=== PATIENT | male | born 1945 | race Caucasian/White ===

== ENCOUNTER 2024-11-24 08:15 | Inpatient (IN) ==
--- OUTSIDE RECORDS SUMMARY | 2024-11-24 08:19 | External Medical Summary ---
Author Name Unknown Address Unknown Organization [id number]:[facility] [address] [place] [address] Laboratory Report Ordering Provider Test Date Status CHIP VIDAL 10/18/2024 15:29:32 Final Observation Date Value Abnormality Reference (Units ) Status LDH 10/18/2024 15:29:32 163 <=250 (U/L ) Final Performing Location [facility] [address] [place] [address]
--- OUTSIDE RECORDS SUMMARY | 2024-11-24 08:19 | External Medical Summary | Summary of Care ---
Author Name Unknown Organization [facility] Address [address] [place] [address] Phone [phone] Care Team Providers Care Custodian Athletic Equipment Name Role Phone Yany Coreas MD Primary Care Provider Reason for Visit * Reason Onset Date Comments Medication Refill 08/06/2024 Encounter Details Date Type Department Care Team (Late st Contact Info) Description 08/06/2024 Refill Cardiology, [facility] [address] [place] [address] Tereso Neal PATreverC [address] [facility] [place] [address] Allergies No known active allergiesdocumented as of this encounter (statuses as of 08/09/2024) Medications Medication Sig Dispensed Refills Start Date End Date Status Aspirin 81 MG Tablet Take 1 Tablet by mouth in the morning. Active Furosemide 20 MG Oral Tablet (Lasix) TAKE 1 TABLET BY MOUTH ONCE A DAY NEEDED FOR FLUID ACCUMULATION OR WEIGHT GAIN 90 Tablet 3 12/20/2022 Active Fluticasone Propionate 50 MCG/ACT Nasal Suspension (Flonase)Indications :Post-nasal drip Use 2 spray(s) in each nostril once daily 48 g 1 05/17/2023 Active [facility] Iron 325 (65 Fe) MG Oral Tablet Take 1 Tablet by mouth daily with breakfast. 07/24/2023 Active Magnesium 400 MG Oral Tablet Take by mouth. Active Levothyroxine Sodium 25 MCG Oral Tablet (Levoxyl)Indications :Acquired hypothyroidism Take 1 Tablet by mouth in the morning. on an empty stomach.. 90 Tablet 3 01/21/2024 Active Lansoprazole 30 MG Oral Capsule Delayed Release (Prevacid)Indication s:Gastroesophageal reflux disease without esophagitis TAKE 1 CAPSULE BY MOUTH ONCE DAILY IN THE MORNING 30 MIN BEFORE THE FIRST MEAL OF THE DAY 90 Capsule 2 01/21/2024 Active Xtandi 40 MG Oral Tablet 03/22/2024 Active Orgovyx 120 MG Oral Tablet 03/14/2024 Active Metoprolol Succinate ER 50 MG Oral Tablet Extended Release 24 Hour (toPROL XL)Indications:HTN, goal below 130/80,SVT (supraventricular tachycardia) (HCC) Take 1.5 Tablets by mouth in the morning. 135 Tablet 3 05/07/2024 Active amLODIPine Besylate 2.5 MG Oral Tablet (Norvasc) Take 1 Tablet by mouth every evening. 90 Tablet 3 05/07/2024 Active Atorvastatin Calcium 20 MG Oral Tablet (Lipitor)Indications :Mixed dyslipidemia TAKE 1 TABLET BY MOUTH IN THE MORNING 90 Tablet 05/17/2024 Active metroNIDAZOLE 0.75 % External Gel (Metrogel)Indication s:Rosacea APPLY TO FACE FOR ROSACEA TWICE DAILY 45 g 06/13/2024 Active Celecoxib 100 MG Oral Capsule (CeleBREX) Take 1-2 capsules by mouth daily WF and water. Do not combine with other NSAIDs such as diclofenac, ibuprofen or naproxen. 60 Capsule 2 06/22/2024 Active documented as of this encounter (statuses as of 08/09/2024) Active Problems Problem Noted Date Diagnosed Date Obesity, Class II, BMI 35-39.9, isolated (see ac tual BMI) 04/09/2022 PAT (paroxysmal atrial tachycardia) 01/14/2022 1st degree AV block 01/14/2022 Acquired hypothyroidism 07/01/2020 Malignant neoplasm of prostate 06/05/2001 Cancer Staging:Clinical: Unsigned Dyslipidemia documented as of this encounter (statuses as of 08/09/2024) Resolved Problems Problem Noted Date Diagnosed Date Resolved Date Umbilical hernia 09/18/2014 04/09/2022 Sciatica 01/12/2011 06/16/2017 BMI 35-39 ISOLATED (SEE ACTUAL BMI) 03/30/2010 04/09/2022 Overview: Per Obesity Protocol, #19 Esophageal stricture 08/01/2009 022 ADVANCE DIRECTIVE INFORMATION 01/02/2007 10/23/2018 Overview: No, Advance Directive brochure offered , patient declined. Acute cholecystitis 01/20/2004 05/29/20 09 BACKACHE NOS 06/05/2001 06/16/2017 CLOSE SKULL FRACTURE NEC - age 12 06/16/2017 DIVERTICULOSIS OF COLON - 03/1710/23/2018 INCONTINENCE WITHOUT SENSORY AWARENESS 04/09/2022 documented as of this encounter (statuses as of 08/09/2024) Immunizations Name Administration Dates Next Due COVID-19 mRNA, LNP-s, No Pre serve, 2-Dose Series (Upower) 01/13/2021,12/16/2020 Pneumococcal Conjugate Vacc, 13 Valent (Prevnar) 05/22/2015 Pneumococcal Polysaccharide PPV23 (Pneumovax) 07/07/2012,04/07/2012 Season Influenza, Quad, PF, Adjuvanted, 65+ Yrs, IM (FLUAD) 07/01/2020 Seasonal Influenza Vac., MDV , IM, 0.5 mL (Fluzone) 07/20/2014,07/07/2013,07/14/2012,06/18,08/14/2010 07/20/2015 Seasonal Influenza, PF, 6 M & above, IM , (FluLaval or Fluzone) 08/10/2018,07/30/2017 Seasonal Influenza, Quadriva lent Hd (Fluzone Hd) 07/09/2023,08/17/2022,07/08/2021 Seasonal Influenza, Quadriva lent, No Preserve, IM 07/31/2016,07/22/2015 Seasonal Influenza, Trivalen t, Adjuvanted, 65+ YRS, PF, (Fluad) 08/03/2019 TDAP (age 10 and older)(Boostrix) 04/25/2023, Varicella Zoster Vaccine (Adult) 06/15/2012 Zoster Vaccine Recombinant (Shingrix) 10/28/2018 ,06/20/2018 documented as of this encounter Social History Tobacco Use Types Packs/Day Years Used Date Smoking Tobacco: Never Smokeless Tobacco: Never Alcohol Use Standard Drinks/Week Comments Yes 0 (1 standard drink = 0.6 oz pur e alcohol) 2-3 scotch per weekend PHQ-2 Answer Date Recorded PHQ Adult Total Score 0 06/08/2023 Hunger Vital Sign Answer Date Recorded Within the past 12 months, y ou worried that your food would run out before you got the money to buy more. Patient declined Within the past 12 months, t he food you bought just didn't last and you didn't have money to get more. Patient declined Childcare Answer Date Recorded Do you feel overwhelmed with taking care of a child, family member or friend? No 06/07/2023 Does your family need help f inding childcare? (Household - for ages 0-17 years) Not on file 06/07/2023 Clothing Answer Date Recorded Have you been unable to get clothing when it was really needed? No 06/07/2023 Is your family able to get c lothes or diapers when needed? (Household - for ages 0-17 years) Not on file 06/07/2023 Personal Safety Answer Date Recorded Do you feel unsafe or have concerns for your saf ety? No 06/07/2023 Do you have concerns for you r family's safety? (Household - for ages 0-17 years) Not on file 06/07/2023 Utilities Answer Date Recorded Do you have trouble paying y our heating, water, or electric bill? (Adult - for ages 18 years and over) Not on file 06/08/2024 Is your family able to pay t he heat, water, or electric bill? (Household - for ages 0-17 years) Not on file 06/08/2024 Does your family have access to good internet? (Household - for ages 0-17 years) Not on file 06/08/2024 Employment Status Answer Date Recorded Are you unemployed or without regular income? No 06/07/2023 Does the household have a re gular source of income? (Household - for ages 0-17 years) Not on file 06/07/2023 Social Connections Answer Date Recorded How often do you feel lonely or isolated from those around you? (Adult - for ages 18 years and over) Not on file 06/08/2024 Financial Resource Strain Answer Date R ecorded Do you have any trouble payi ng for your medications, or do you think you might in the future? No 06/07/2023 Does your family have troubl e paying for medicine? (Household - for ages 0-17 years) Not on file 06/07/2023 Transportation Needs Answer Date Record ed READ ONLY Do you have troubl e getting a ride to medical visits or work? Never True 06/07/2023 Does your family have a hard time getting a ride to doctors visits? (Household - for ages 0-17 years) Not on file 06/07/2023 Has lack of transportation k ept you from medical appointments, meetings, work, or from getting things needed for daily living? Check all that apply. (Adult - for ages 18 years and over) Not on file 06/07/2023 Do you (or your family) have trouble finding or paying for a ride (transportation)? (Household - for ages 0-17 years) Not on file 06/07/2023 Housing Stability Answer Date Recorded Do you currently live in a s helter or have no steady place to sleep at night? No 06/07/2023 READ ONLY Do you think you a re at risk of becoming homeless? No 06/07/2023 Does your family worry about paying for your home or becoming homeless? (Household - for ages 0-17 years) Not on file 0 06/07/2023 Are you homeless or worried that you might be in the future? (Adult - for ages 18 years and over) Not on file Are you (or your family) gage eless or worried that you might be in the future? (Household - for ages 0-17 years) Not on file Food Insecurity Answer Date Recorded Do you need food for this week? No 06/07/2023 Are you able to get enough f ood for your family? (Household - for ages 0-17 years) Not on file 06/07/2023 Does your family need food t his week? (Household - for ages 0-17 years) Not on file 06/07/2023 Do you always have enough fo od for your family? (Household - for ages 0-17 years) Not on file 06/07/2023 Sex and Gender Information Value Date Recorded Sex Assigned at Male 12/18/2019 8:38 AM EST Gender Identity Male 12/18/2019 8:38 AM EST Sexual Orientation Straight 12/18/2019 8: 38 AM EST Job Start Date Occupation Industry Not on file Not on file Not on file documented as of this encounter Miscellaneous Notes * Telephone Encounter - Kesha Burgos [facility] - 08/09/2024 1:36 PM EDTRefused Prescriptions: Disp Refills amLODIPine Besylate 2.5 MG Oral Tablet (No*90 Tab*3 Sig: Take 1Tablet by mouth every evening.Refused By: KESHA BURGOS MReason for Refusal: Too soonReason forRefusal Comment: 1 year supply sent on 05/07/24 Electronically signed by Kesha Burgos [facility] at 08/09/2024 1:36 PM EDT * Telephone Encounter - Astrid Ramirez - 08/06/2024 11:03 PM EDTPending Prescriptions: Disp Refills amLODIPine Besylate 2.5 MG Oral Tablet (No*90 Tab*3 Sig: Take 1 Tablet by mouth every evening. * Telephone Encounter - Astrid Ramirez - 08/06/2024 11:01 PM EDT Did you pend patient's preferred pharmacy and medication before forwarding?yes Pharmacy: [facility] [address] [place] Pending Prescriptions: Disp Refills amLODIPine Besylate 2.5 MG Oral Tablet (N*90 Tab*3 Sig: Take 1 Tablet by mouth every evening. Last Visit: 05/07/2024 (in office), Visit date not found (telemedicine) Next Visit: 08/17/2024 If no future appointments scheduled, and last appointment is greater than a year ago, please schedule patient for a follow-up appointment Last date the medication was ordered: 05/07/2024 Is this request for a controlled substance?No Urine Drug Screen:No results found for this or any previous visit. Patient Phone Numbers Labs: Lab Results Component Value Date/Time CREAT 1.2 06/20/2024 04:08 PM CREAT 1.03 07/14/2023 12:00 AM CREAT 1.2 07/16/2020 04:20 PM POTASSIUM 4.9 06/20/2024 04:08 PM POTASSIUM 4.5 07/14/2023 12:00 AM POTASSIUM 4.6 07/16/2020 04:20 PM TSH 2.94 05/07/2024 11:24 AM TSH 2.54 08/30/2019 10:08 AM LDL 72 06/20/2024 04:08 PM LDL 75 07/10/2021 04:26 PM LDL UNINTERPRETABLE RESULT 06/21/2019 08:40 AM LDL 79 06/21/2019 08:40 AM ALT 13 06/20/2024 04:08 PM ALT 28 07/16/2020 04:20 PM documented in this encounter Plan of Treatment Upcoming Encounters Date Type Department Care Team (Late st Contact Info) Description 08/17/2024 10:30 AM EDT Office Visit Cardiology, [facility] [address] [place] [id number] Tereso Neal PA-C [address] [place] [address] 08/21/2024 2:00 PM EST Scheduled Telephone Interventional Pain Center, [facility] [address] [place] [address] [place], Nurse Phone Call Interventional Pain [facility] [address] [place] [address] 12/18/2024 12:00 PM EST Laboratory Laboratory [facility] [place] [address] [place] [phone] [facility] [address] [place] [address] 12/25/2024 3:30 PM EDT Office Visit Hematology/Oncology [facility] [place] [address] [place] [phone] Jayant Garcia MD [address] [place] [id number] Scheduled Procedures Name Priority Associated Diagnoses Date/Ti me COLONOSCOPY FLEXIBLE PROXIMAL DIAGNOSTIC Recall Colon cancer screening Health Maintenance Due Date Last Done Comments Adult Wellness Visit 06/08/2024 06/08/2023 Depression Screening 06/08/2024 06/08/2023 Influenza Vaccine (FLU shot) (#1) 2024 07/09/2023, 08/17/2022, 07/08/2021, Additional history exists TSH 05/07/2025 05/07/2024, 10/2022, 05/02/2023, Additional history exists DTap/Tdap Vaccines (3 - Td or Tdap) 04/25/2033 04/25/2023, 04/07/2012, 06/01/2001 Pneumococcal Vaccine: 65+ Years Completed 05/22/2015, 07/07/2012, 04/07/2012 Zoster Vaccines Completed 10/28/2018, 0 01/2018, 06/15/2012 COVID-19 Vaccine Discontinued 10/01/2023, , 12/16/2020 HPV (Gardasil) Vaccine Aged Out No lo nger eligible based on patient's age to complete this topic Hepatitis B Vaccine Aged Out No longe r eligible based on patient's age to complete this topic MENINGOCOCCAL (MENACTRA/MENVEO) Aged Out No longer eligible based on patient's age to complete this topic documented as of this encounter Medical Devices Implanted Type Area Manager Customer Service Device Identifier Shelf Expiration Date Model / Serial / Lot Lens Intraoc 21.5 - [id number] - [id number] Implanted:Qty: 1 on 10/31/2018 by Sal Ortez MD at OR [facility] Left: Eye [employer] 05/16/2023 [id number] / [id number] / [id number] Lens Intraoc 20.5 - [id number] - [id number] Implanted:Qty: 1 on 11/09/2018 by Sal Ortez MD at OR [facility] Eye [employer] 06/16/2023 [id number] / [id number] / [id number] documented as of this encounter Care Teams Custodian Athletic Equipment Relationship Specialty Start Date End Date Yany Coreas MD [address] [place] [address] PCP - General Internal Medicine 07/09/23 documented as of this encounter
--- OUTSIDE RECORDS SUMMARY | 2024-11-24 08:19 | External Medical Summary | Summary of Care ---
Author Name Unknown Organization [facility] Address [address] [place] [address] Phone [phone] Care Team Providers Care Acid Remover Name Role Phone Yany Coreas MD Primary Care Provider Reason for Visit * Reason Comments Follow Up 3m rtc Encounter Details Date Type Department Care Team (Late st Contact Info) Description 08/17/2024 10:30 AM EDT Office Visit Cardiology, [facility] [address] [place] [id number] Tereso Neal PATreverC [address] [facility] [address] SVT (supraventricular tachycardia) ([facility])*; PAT (paroxysmal atrial tachycardia) ([facility]); HTN, goal below 130/80; Dyslipidemia, goal LDL below 100 Allergies No known active allergiesdocumented as of this encounter (statuses as of 08/17/2024) Medications Medication Sig Dispensed Refills Start Date [...] every evening. 90 Tablet 3 05/07/2024 Active metroNIDAZOLE 0.75 % External Gel (Metrogel)Indication s:Rosacea APPLY TO FACE FOR ROSACEA TWICE DAILY 45 g 06/13/2024 Active Celecoxib 100 MG Oral Capsule (CeleBREX) Take 1-2 capsules by mouth daily WF and water. Do not combine with other NSAIDs such as diclofenac, ibuprofen or naproxen. 60 Capsule 2 06/22/2024 Active Atorvastatin Calcium 20 MG Oral Tablet (Lipitor)Indications :Mixed dyslipidemia TAKE 1 TABLET BY MOUTH IN THE MORNING 90 Tablet 08/14/2024 Active documented as of this encounter (statuses as of 08/17/2024) Active Problems Problem Noted Date Diagnosed Date Obesity, Class II, BMI 35-39.9, isolated (see ac tual BMI) 04/09/2022 PAT (paroxysmal atrial tachycardia) 01/14/2022 1st degree AV block 01/14/2022 Acquired hypothyroidism 07/01/2020 Malignant neoplasm of prostate 06/05/2001 Cancer Staging:Clinical: Unsigned Dyslipidemia documented as of this encounter (statuses as of 08/17/2024) Resolved Problems Problem Noted Date Diagnosed Date [...] as of this encounter (statuses as of 08/17/2024) Immunizations Name Administration Dates Next Due COVID-19 mRNA, LNP-s, No Pre serve, 2-Dose Series (Pfizer) 01/13/2021,12/16/2020 Pneumococcal Conjugate Vacc, 13 Valent (Prevnar) [...] on file documented as of this encounter Last Filed Vital Signs Vital Sign Reading Time Taken Comments Blood Pressure 118/58 08/17/2024 10:19 AM EDT Pulse 64 08/17/2024 10:19 AM EDT Temperature - - Respiratory Rate 16 08/17/2024 10:1 9 AM EDT Oxygen Saturation - - Inhaled Oxygen Concentration - - Weight 108.5 kg (239 lb 1.6 oz) 024 10:19 AM EDT Height - - Body Mass Index 36.36 07/09/2023 9:09 AM EDT documented in this encounter Progress Notes * Tereso Neal PA-C - 08/17/2024 10:30 AM EDT History of Present Illness: Ankit Morgan is a very pleasant 79 year old male here today for cardiology evaluation. Went to [place] for a regular checkup and was found to have a heart rate of 135 bpm. Spent the night in the hospital. Asymptomatic at that time. Diltiazem discontinued in March 2024 when prescribed Xtandi. Evaluated by the undersigned for the 1st time in April 2024. Amlodipine decreased due to fluid retention. Furosemide recommended at 20 mg two days per week, as needed for lower extremity peripheraledema. Metoprolol succinate increased to 75 mg/day. Resting echocardiography obtained and summarized below. Seven day Zio monitor obtained on metoprolol succinate 75 mg/day -> average heart rate was 61 bpm. Multiple episodes of SVT/PAT observed, without associated symptoms. Patient returns today feeling relatively well except for chronic back problem after remote (1980) fall. No palpitations. No reported chest pain, shortness of breath, significant fluid retention, orthopnea, PND, dizziness, or syncope. Problem List: PAT and SVT, adenosine responsive Hyperlipidemia with low HDL Hypothyroidism MGUS, monoclonal IgG kappa gammopathy Prostate cancer, on Xtandi and Orgovyx Patient Active Problem List Diagnosis Malignant neoplasm of prostate (HCC) Dyslipidemia Acquired hypothyroidism PAT (paroxysmal atrial tachycardia) (HCC) 1st degree AV block Obesity, Class II, BMI 35-39.9, isolated (see actual BMI) Past Medical History: Diagnosis Date DIVERTICULOSIS OF COLON - 03/17 Esophageal stricture 08/01/09 Malignant neoplasm of prostate (HCC) 06/05/2001 [facility] MIXED HYPERLIPIDEMIA - Low HDL Obesity, Class II, BMI 35-39.9, isolated (see actual BMI) 04/09/2022 Other specified gastritis without mention of hemorrhage 08/01/09 Schatzki ring, focal minimal and nonspecific chronic gastric inflammation Past Surgical History: Procedure Laterality Date COLONOSCOPY 09/2005 repeat in 10 yrs. COLONOSCOPY, DIAGNOSTIC (RECTUM) 09/22/2015 diverticulosis, repeat 10 yrs/COLONOSCOPY FLEXIBLE PROXIMAL DIAGNOSTIC performed by Aron Alonso MD at ENDOSCOPY [facility] EGD, FLEXIBLE, DIAGNOSTIC 06/05/2013 UPPER GI ENDOSCOPY DIAGNOSTIC performed by Claire Emmanuel DO at [facility]OSCOPY [facility], mild inflammation, without infection EGD, FLEXIBLE, DIAGNOSTIC 07/23/2020 acid reflux, hiatal hernia / ESOPHAGOGASTRODUODENOSCOPY (EGD), FLEXIBLE, TRANSORAL, DIAGNOSTIC performed by Aron Alonso MD at ENDOSCOPY [facility] EGD, FLEXIBLE, TRANSENDOSCOPIC DILATION <30MM 07/18/2009 mild gastric inflammation, residual gastric content, f/u EGD in 2 weeks for dilation EGD, FLEXIBLE, W/BIOPSY 08/01/2009 Schatzki ring, focal minimal and nonspecific chronic gastric inflammation INJECT DX/THER SUBSTANCE INTERLAMINAR LUMBAR/SACRAL W IMAGE GUIDE 01/17/2023 INJECTION SPINE LUMBAR OR SACRAL performed by Bebo Mitchell DO at OR [facility] INJECT DX/THER SUBSTANCE INTERLAMINAR LUMBAR/SACRAL W IMAGE GUIDE 11/28/2023 INJECTION SPINE LUMBAR OR SACRAL performed by Bebo Mitchell DO at OR [facility] INJECT DX/THER SUBSTANCE INTERLAMINAR LUMBAR/SACRAL W IMAGE GUIDE 07/16/2024 INJECTION SPINE LUMBAR OR SACRAL performed by Bebo Mitchell DO at OR [facility] LAPAROSCOPY; CHOLECYSTECTOMY 2003 Cholecystectomy, Laproscopic REMOVAL OF PROSTATE, FIRST STAGE 11/1998 [facility] REMOVE CATARACT, INSERT LENS PROSTH Left 10/31/2018 left EXTRACAPSULAR CATARACT REMOVAL WITH INTRAOCULAR LENS performed by Sal Ortez MD at OR [facility] REMOVE CATARACT, INSERT LENS PROSTH 11/09/2018 EXTRACAPSULAR CATARACT REMOVAL WITH INTRAOCULAR LENS performed by Sal Ortez MD at OR [facility] REMOVE TONSILS & ADENOIDS, UNDER 12 SIGMOIDOSCOPY/BIOPSY 03/28/2001 diverticulosis - Dr Elizondo TREAT SKULL FX W/O SURGERY age 12 Family History Problem Relation Name Age of Onset Cancer Mother Cervix Heart Disorder Father [place] Family Status Relation Status Mo at age 53 Cancer of Cervix Fa at age 64 [place] Sis Alive Sis Alive Sis Alive Sis Alive Son Alive Son Alive Social History Socioeconomic History Marital status: Spouse name: Sushma Number of children: 2 Years of education: Not on file Highest education level: Not on file Occupational History 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 Review of patient's allergies indicates: No Known Allergies Current Outpatient Medications Medication Sig Dispense Refill Aspirin 81 MG Tablet Take 1 Tablet by mouth in the morning. Furosemide 20 MG Oral Tablet (Lasix) TAKE 1 TABLET BY MOUTH ONCE A DAY NEEDED FOR FLUID ACCUMULATION OR WEIGHT GAIN 90 Tablet 3 Fluticasone Propionate 50 MCG/ACT Nasal Suspension (Flonase) Use 2 spray(s) in each nostril once daily 48 g 1 [facility] Iron 325 (65 Fe) MG Oral Tablet Take 1 Tablet by mouth daily with breakfast. Magnesium 400 MG Oral Tablet Take by mouth. Levothyroxine Sodium 25 MCG Oral Tablet (Levoxyl) Take 1 Tablet by mouth in the morning. on an empty stomach.. 90 Tablet 3 Lansoprazole 30 MG Oral Capsule Delayed Release (Prevacid) TAKE 1 CAPSULE BY MOUTH ONCE DAILY IN THE MORNING 30 MIN BEFORE THE FIRST MEAL OF THE DAY 90 Capsule 2 Xtandi 40 MG Oral Tablet Orgovyx 120 MG Oral Tablet Metoprolol Succinate ER 50 MG Oral Tablet Extended Release 24 Hour (toPROL XL) Take 1.5 Tablets by mouth in the morning. 135 Tablet 3 amLODIPine Besylate 2.5 MG Oral Tablet (Norvasc) Take 1 Tablet by mouth every evening. 90 Tablet 3 metroNIDAZOLE 0.75 % External Gel (Metrogel) APPLY TO FACE FOR ROSACEA TWICE DAILY 45 g 0 Celecoxib 100 MG Oral Capsule (CeleBREX) Take 1-2 capsules by mouth daily WF and water. Do not combine with other NSAIDs such as diclofenac, ibuprofen or naproxen. 60 Capsule 2 Atorvastatin Calcium 20 MG Oral Tablet (Lipitor) TAKE 1 TABLET BY MOUTH IN THE MORNING 90 Tablet 0 No current facility-administered medications for this visit. OBJECTIVE/PHYSICAL EXAMINATION: BP 118/58 | Pulse 64 | Resp 16 | Wt 108.5 kg (239 lb 1.6 oz) | BMI 36.36 kg/m | BSA 2.28 m General: Pleasant. Comfortable. Cooperative.NAD Eyes: PER. Conjunctiva pink, sclera clear. HENT: Normocephalic. Atraumatic. Neck: No carotid bruits. No overt JVD. Heart: Regular 64 bpm. Soft systolic murmur heard only at the right mid sternal border. Lungs: Clear to auscultation. Abdomen: +BS. Extremities: No significant edema. Limited neurological examination: No focal deficit. Data: October 2021 Zio Monitor: Patient had a min HR of 42 bpm, max HR of 182 bpm, and avg HR of 59 bpm. Predominant underlying rhythm was Sinus Rhythm. First Degree AV Block was present. 1 run of Ventricular Tachycardia occurred lasting 12 beats with a max rate of 182 bpm (avg 131 bpm). 25 Supraventricular Tachycardia runs occurred, the run with the fastest interval lasting 4 hours 46 mins with a max r ate of 179 bpm (avg 126 bpm); the run with the fastest interval was also the longest. Supraventricular Tachycardia was present at activation of device. Some episodes of Supraventricular Tachycardia may be possible Atrial Tachycardia with variable block. Isolated SVEs were rare (<1.0%), SVE Couplets were rare (<1.0%), and SVE Triplets were rare (<1.0%). Isolated VEs were rare (<1.0%), VE Couplets were rare (<1.0%), and no VE Triplets were present. Multiple short salvos of PSVT With sustained SVT lasting upwards of 4 hours and 46 minutes. August 01, 2024 TTE Interpretation Summary (as per Dr. Price): There was sinus bradycardia during the examination. The LV wall thickness is mildly increased (concentric). The left ventricular wall motion is normal. The qualitative LV ejection fraction is 55-59% (normal). The left ventricular lacy stolic function is mildly abnormal (grade I). Moderate aortic valve sclerosis is present. Aortic stenosis is absent. July 2024 Zio Monitor: Patient had a min HR of 43 bpm, max HR of 169 bpm, and avg HR of 61 bpm. Predominant underlying rhythm was Sinus Rhythm. 136 Supraventricular Tachycardia runs occurred, the run with the fastest interval lasting 2 mins 33 secs with a max rate of 169 bpm, the longest lasting1 hour 41 mins with an avg rate of 106 bpm. Isolated SVEs were occasional (1.3%, 7881), SVE Couplets were rare (<1.0%, 86), and SVE Triplets were rare (<1.0%, 5). Isolated VEs were rare (<1.0%), VE Couplets were rare (<1.0%), and no VE Triplets were present. No patient marker or diary entries were submitted. Impression: Sinus rhythm, average rate 60 beats per minute with occasional atr ial ectopic beats and rare ventricular ectopic beats and couplets. Episodes of supraventricular tachycardia were present, longest 1 hour and 41 minutes at 106 beats per minute Lipid Panel Results: Results for orders placed or performed in visit on 06/20/24 LIPID PANEL WITH DIRECT LDL IF TG IS HIGH Result Value Ref Range Triglycerides 190 (H) <=174 mg/dL Cholesterol 127 <200 mg/dL HDL Cholesterol 24 (L) >39 mg/dL Non-HDL Cholesterol 103 <=159 mg/dL Lab Results Component Value Date/Time LDL CHOLESTEROL (DIRECT MEASURE) - INÉS 72 06/20/2024 04:08 PM The 10-year ASCVD risk score (Antoinette DESAI, et al., 2019) is: 32.2% Values used to calculate the score: Age: 79 years Sex: Male Is Non- : No Diabetic: No Tobacco smoker: No Systolic Blood Pressure: 118 mmHg Is BP treated: Yes HDL Cholesterol: 24 mg/dL Total Cholesterol: 127 mg/dL ASSESSMENT AND RECOMMENDATIONS/PLAN: Multiple episodes of SVT/PAT, asymptomatic. Continue metoprolol succinate 75 mg/day. General measures advised. If/when symptomatic with the SVT/PAT would reconsider use of antiarrhythmic therapy versus referral back to Electrophysiology Hypertension, well controlled. Hyperlipidemia with low HDL cholesterol. Continue atorvastatin. Routine cardiac follow-up with Dr. Laughlin, or as needed with the undersigned in the interim. Tereso Neal PA-C Department of Cardiology I spent a total of 20-29 minutes (exact time 28 mins) on the date of service in preparation, delivery, and documentation of the care provided to Ankit Morgan excluding any time spent in the performance of separately billed services. This visit involved medical care services related to at least one serious condition or complex condition requiring ongoing care. This chart was completed in part utilizing [employer] Speech Voice Recognition Software. Grammatical errors, random word insertions, prounoun errors, and incomplete sentences are an occasional consequence of this system due to software limitations, ambient noise, and hardware issues. Any formal questions or concerns about the content, text, or information contained within the body of this dictation should be directly addressed to the provider for clarification. documented in this encounter Nursing Notes * Yael Alejandro CMA - 08/17/2024 10:17 AM EDT Examination Room: 1 Name: Ankit Morgan Date of : (1945). Reason for Visit: rtc Interim Hospitalization(s): denies Problems/Concerns: Discuss Echo/Zio Chest Pain/SOB: denies [facility] Discussed: Yes [facility] is a way you can talk to your provider online through e-mail. Would you like to sign up? I can activate it for you? ALREADY ACTIVE Patient was instructed to not get up on the exam table until directed and assisted by their provider; patient is to remain seated in the chair/ wheelchair/ exam table for fall prevention and safety reasons. Patient is aware to have assistance to step down off exam table with personnel. Patient voiced full comprehension of instructions. documented in this encounter Plan of Treatment Upcoming Encounters Date Type Department Care Team (Late st Contact Info) Description 08/21/2024 2:00 PM EST Scheduled Telephone [facility], [address] [place] [address] Srini Nurse Phone Call [facility] [address] [place] [address] 12/18/2024 12:00 PM EST Laboratory Laboratory [facility] [address] [place] [phone] [facility] [address] [place] [address] 12/25/2024 3:30 PM EDT Office Visit Hematology/Oncology [facility] [address] [place] [phone] Jayant Garcia MD [address] [place] [address] 02/15/2025 3:30 PM EDT Office Visit Cardiology, [facility] [address] [place] [address] Tereso Neal PA-C [address] [place] [address] Scheduled Procedures Name Priority Associated Diagnoses Date/Ti [...] 05/22/2015, 07/07/2012, 04/07/2012 Zoster Vaccines Completed 10/28/2018, 01/2018, 06/15/2012 COVID-19 Vaccine Discontinued 10/01/2023, , [...] this encounter Medical Devices Implanted Type Area Mimeograph Operator Device Identifier Shelf Expiration Date Model / Serial / Lot Lens Intraoc 21.5 - [id number] - [id number] Implanted:Qty: 1 on 10/31/2018 by Sal Ortez MD at OR [facility] Left: Eye [employer] 05/16/2023 [id number] / [id number] / [id number] Lens Intraoc 20.5 - [id number] - [id number] Implanted:Qty: 1 on 11/09/2018 by Sal Ortez MD at OR [facility] Eye [employer] 06/16/2023 [id number] / [id number] / [id number] documented as of this encounter Visit Diagnoses Diagnosis SVT (supraventricular tachycardia) (HCC)- Primary Other specified cardiac dysrhythmias PAT (paroxysmal atrial tachycardia) (HCC) Paroxysmal supraventricular tachycardia HTN, goal below 130/80 Unspecified essential hypertension Dyslipidemia, goal LDL below 100 Other and unspecified hyperlipidemia documented in this encounter Care Teams Acid Remover Relationship Specialty Start Date End Date Yany Coreas MD [address] [facility] [place] [address] PCP - General Internal Medicine 07/09/23 documented as of this encounter"
--- OUTSIDE RECORDS SUMMARY | 2024-11-24 08:19 | External Medical Summary ---
Author Name Unknown Address Unknown Organization K09:[facility] [place] [id number] Laboratory Report Ordering Provider Test Date Status HCIP VIDAL 10/18/2024 15:29:32 Final Observation Date Value Abnormality Reference (Units ) Status WBC, Total 10/18/2024 15:29:32 5.32 4.00-10.8 0 (K/uL) Final RBC 10/18/2024 15:29:32 3.69 4.50-5.25 (M/uL) Final Hemoglobin 10/18/2024 15:29:32 12.2 Below low normal 14 .0-16.8 (g/dL) Final HCT 10/18/2024 15:29:32 36.9 Below low normal 40. 0-48.4 (%) Final MCV 10/18/2024 15:29:32 100.0 82.0-99.5 (fL) Final MCH 10/18/2024 15:29:32 33.1 27.0-34.0 (pg) Final MCHC 10/18/2024 15:29:32 33.1 32.0-36.0 (g/dL) Final RDW 10/18/2024 15:29:32 12.8 11.5-15.5 (%) Final Platelets 10/18/2024 15:29:32 240 140-400 (K /uL) Final MPV 10/18/2024 15:29:32 10.4 6.6-11.1 ( fL) Final Performing Location [facility] [place] [id number]
--- OUTSIDE RECORDS SUMMARY | 2024-11-24 08:19 | External Medical Summary | Summary of Care ---
Author Name Unknown Organization [facility] Address [address] [place] [address] Phone [phone] Care Team Providers Care Supervisor Housecleaner Name Role Phone Yany Coreas MD Primary Care Provider Reason for Visit * Reason Comments Outpatient Testing Encounter Details Date Type Department Care Team (Late st Contact Info) Description 10/18/2024 3:30 PM EST Laboratory [facility] [place] [address] [place] [phone] [place], [address] [place] [address] Malignant neoplasm of prostate (HCC) Allergies No known active allergiesdocumented as of this encounter (statuses as of 10/18/2024) Medications Aspirin 81 MG Tablet Take 1 Tablet by mouth in the morning. Active Furosemide 20 MG Oral Tablet (Lasix) TAKE 1 TABLET BY MOUTH ONCE A DAY NEEDED FOR FLUID ACCUMULATION OR WEIGHT GAIN 90 Tablet 3 12/21/19 23 Active Fluticasone Propionate 50 MCG/ACT Nasal Suspension (Flonase)Indicatio ns:Post-nasal drip Use 2 spray(s) in each nostril once daily 48 g 1 05/17/20 23 Active [facility] Iron 325 (65 Fe) MG Oral Tablet Take 1 Tablet by mouth daily with breakfast. 07/24/20 23 Active Magnesium 400 MG Oral Tablet Take by mouth. Act jose Xtandi 40 MG Oral Tablet 03/22/20 24 Active Orgovyx 120 MG Oral Tablet 03/14/20 24 Active Metoprolol Succinate ER 50 MG Oral Tablet Extended Release 24 Hour (toPROL XL)Indications:HTN , goal below 130/80,SVT (supraventricular tachycardia) (HCC) Take 1.5 Tablets by mouth in the morning. 135 Tablet 3 05/07/20 24 Active amLODIPine Besylate 2.5 MG Oral Tablet (Norvasc) Take 1 Tablet by mouth every evening. 90 Tablet 3 05/07/20 24 Active metroNIDAZOLE 0.75 % External Gel (Metrogel)Indicati ons:Rosacea APPLY TO FACE FOR ROSACEA TWICE DAILY 45 g 06/13/20 24 Active Celecoxib 100 MG Oral Capsule (CeleBREX) Take 1-2 capsules by mouth daily WF and water. Do not combine with other NSAIDs such as diclofenac, ibuprofen or naproxen. 60 Capsule 2 06/22/20 24 Active Levothyroxine Sodium 25 MCG Oral Tablet (Levoxyl)Indicatio ns:Acquired hypothyroidism Take 1 Tablet by mouth in the morning. on an empty stomach.. 90 Tablet 3 10/04/20 24 Active Lansoprazole 30 MG Oral Capsule Delayed Release (Prevacid)Indicati ons:Gastroesophage al reflux disease without esophagitis TAKE 1 CAPSULE BY MOUTH ONCE DAILY IN THE MORNING 30 MIN BEFORE THE FIRST MEAL OF THE DAY 90 Capsule 2 10/04/20 24 Active Atorvastatin Calcium 20 MG Oral Tablet (Lipitor)Indicatio ns:Mixed dyslipidemia Take 1 Tablet by mouth in the morning. 90 Tablet 3 10/04/20 24 Active documented as of this encounter (statuses as of 10/18/2024) Active Problems Problem Noted Date Diagnosed Date Obesity, Class II, BMI 35-39.9, isolated (see ac tual BMI) 04/09/2022 PAT (paroxysmal atrial tachycardia) 01/14/2022 1st degree AV block 01/14/2022 Acquired hypothyroidism 07/01/2020 Malignant neoplasm of prostate 06/05/2001 Cancer Staging:Clinical: Unsigned Dyslipidemia documented as of this encounter (statuses as of 10/18/2024) Resolved Problems Problem Noted Date Diagnosed Date Resolved Date Umbilical hernia 09/18/2014 04/09/2022 Sciatica 01/12/2011 06/16/2017 BMI 35-39 ISOLATED (SEE ACTUAL BMI) 03/30/2010 04/09/2022 Overview (03/30/2010): Per Obesity Protocol, #19 Esophageal stricture 08/01/2009 022 ADVANCE DIRECTIVE INFORMATION 01/02/2007 10/23/2018 Overview (01/02/2007): No, Advance Directive brochure offered , patient declined. Acute cholecystitis 01/20/2004 05/29/20 09 BACKACHE NOS 06/05/2001 06/16/2017 CLOSE SKULL FRACTURE NEC - age 12 06/16/2017 DIVERTICULOSIS OF COLON - 03/1710/23/2018 INCONTINENCE WITHOUT SENSORY AWARENESS 04/09/2022 documented as of this encounter (statuses as of 10/18/2024) Immunizations Name Administration Dates Next Due COVID-19 mRNA, LNP-s, No Pre serve, 2-Dose Series (Pfizer) 01/13/2021,12/16/2020 COVID-19, MRNA-LNP, PF, 30 M CG/0.3 mL, 12 YRS AND ABOVE, IM (PFIZER-Comirnaty) 08/10/2024,10/01/2023 Pneumococcal Conjugate Vacc, 13 Valent (Prevnar) 05/22/2015 Pneumococcal Polysaccharide PPV23 (Pneumovax) 07/07/2012,04/07/2012 Season Influenza, Quad, PF, Adjuvanted, 65+ Yrs, IM (FLUAD) 08/10/2024,07/01/2020 Seasonal Influenza Vac., MDV , IM, 0.5 [...] Date Recorded PHQ Adult Total Score 0 10/04/2024 Hunger Vital Sign Answer Date Recorded Within the past 12 months, y ou worried that your food would run out before you got the money to buy more. Never true 10/03/20 24 Within the past 12 months, t he food you bought just didn't last and you didn't have money to get more. Never true 10/03/2024 Childcare Answer Date Recorded Do you feel overwhelmed with taking care of a child, family member or friend? No 10/03/2024 Does your family need help f inding childcare? (Household - for ages 0-17 years) Not on file 10/03/2024 Clothing Answer Date Recorded Have you been unable to get clothing when it was really needed? No 10/03/2024 Is your family able to get c lothes or diapers when needed? (Household - for ages 0-17 years) Not on file 10/03/2024 Personal Safety Answer Date Recorded Do you feel unsafe or have concerns for your saf ety? No 10/03/2024 Do you have concerns for you r family's safety? (Household - for ages 0-17 years) Not on file 10/03/2024 Utilities Answer Date Recorded Do you have trouble paying y our heating, water, or electric bill? No 10/03/2024 Is your family able to pay t he heat, water, or electric bill? (Household - for ages 0-17 years) Not on file 10/03/2024 Does your family have access to good internet? (Household - for ages 0-17 years) Not on file 10/03/2024 Employment Status Answer Date Recorded Are you unemployed or without regular income? No 10/03/2024 Does the household have a re gular source of income? (Household - for ages 0-17 years) Not on file 10/03/2024 Social Connections Answer Date Recorded How often do you feel lonely or isolated from th ose around you? Never 10/03/2024 Financial Resource Strain Answer Date R ecorded Do you have any trouble payi ng for your medications, or do you think you might in the future? No 10/03/2024 Does your family have troubl e paying for medicine? (Household - for ages 0-17 years) Not on file 10/03/2024 Transportation Needs Answer Date Record ed Do you have trouble getting a ride to medical visits or work? (Adult - for ages 18 years and over) Not on file 10/03/2024 Does your family have a hard time getting a ride to doctors visits? (Household - for ages 0-17 years) Not on file 10/03/2024 Has lack of transportation k ept you from medical appointments, meetings, work, or from getting things needed for daily living? Check all that apply. No 10/03/2024 Do you (or your family) have trouble finding or paying for a ride (transportation)? (Household - for ages 0-17 years) Not on file 10/03/2024 Housing Stability Answer Date Recorded Do you currently live in a s helter or have no steady place to sleep at night? Yes 10/03/2024 Do you think you are at risk of becoming homeless? (Adult - for ages 18 years and over) Not on file 10/03/2024 Does your family worry about paying for your home or becoming homeless? (Household - for ages 0-17 years) Not on file 1 12/04/2023 Are you homeless or worried that you might be in the future? No 10/03/2024 Are you (or your family) gage eless or worried that you might be in the future? (Household - for ages 0-17 years) Not on file Food Insecurity Answer Date Recorded Do you need food for this week? No 10/03/2024 Are you able to get enough f ood for your family? (Household - for ages 0-17 years) Not on file 10/03/2024 Does your family need food t his week? (Household - for ages 0-17 years) Not on file 10/03/2024 Do you always have enough fo od for your family? 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 Not on file Not on file Not on f ile documented as of this encounter Plan of Treatment Upcoming Encounters Date Type Department Care Team (Late st Contact Info) Description 12/18/2024 12:00 PM EST Laboratory Laboratory [facility] [address] [place] [phone] [place] [address] 12/25/2024 3:30 PM EDT Office Visit Hematology/Oncology [facility] [address] [place] [phone] Jayant Garcia MD [address] [place] [address] 02/15/2025 3:30 PM EDT Office Visit Cardiology, [facility] [address] [place] [address] Tereso Neal PA-C [address] [place] [address] 10/07/2025 3:20 PM EST Office Visit Family Practice [facility] [address] [place] [address] Yany Coreas MD [address] [place] [address] Pending Results Name Type Priority Associated Diagnoses Date /Time CBC WITH WBC DIFFERENTIAL Lab Routine Malignant neoplasm of prostate (HCC) 10/18/2024 3:29 PM EST COMPREHENSIVE METABOLIC PANEL Lab Routine Malignant neoplasm of prostate (HCC) 10/18/2024 3:29 PM EST LD Lab Routine Malignant neoplasm of prostate (HCC) 10/18/2024 3:29 PM EST PSA Lab Routine Malignant neoplasm of prostate (HCC) 10/18/2024 3:29 PM EST TESTOSTERONE, TOTAL Lab Routine Malignant neoplasm of prostate (HCC) 10/18/2024 3:29 PM EST CBC Lab Routine Malignant neoplasm of prostate (HCC) 10/18/2024 3:29 PM EST DIFFERENTIAL, AUTOMATED Lab Routine Malignant neoplasm of prostate (HCC) 10/18/2024 3:29 PM EST Scheduled Procedures Name Priority Associated Diagnoses Date/Ti me COLONOSCOPY FLEXIBLE PROXIMAL DIAGNOSTIC Recall Colon cancer screening Health Maintenance Due Date Last Done Comments Adult Wellness Visit 06/08/2024 06/08/2023 TSH 05/07/2025 05/07/2024, 10/2022, 05/02/2023, Additional history exists Depression Screening 10/04/2025 10/04/2024 DTap/Tdap Vaccines (3 - Td or Tdap) 04/25/2033 04/25/2023, 04/07/2012, 06/01/2001 Pneumococcal Vaccine: 50+ Years Completed 05/22/2015, 07/07/2012, 04/07/2012 Zoster Vaccines Completed 10/28/2018, 01/2018, 06/15/2012 COVID-19 Vaccine Discontinued 08/10/2024, , 01/13/2021, Additional history exists Influenza Vaccine (FLU shot) Completed 08/10/2024, 07/09/2023, 08/17/2022, Additional history exists HPV (Gardasil) Vaccine Aged Out No lo nger eligible based on patient's age to complete this topic Hepatitis B Vaccine Aged Out No longe r eligible based on patient's age to complete this topic MENINGOCOCCAL (MENACTRA/MENVEO) Aged Out No longer eligible based on patient's age to complete this topic documented as of this encounter Medical Devices Implanted Type Area Building Rental Superintendent Device Identifier Shelf Expiration Date Model / Serial / Lot Lens Intraoc 21.5 - [id number] - [id number] Implanted:Qty: 1 on 10/31/2018 by Sal Ortez MD at OR [facility] Left: Eye [employer] 05/16/2023 [id number] / [id number] / [id number] Lens Intraoc 20.5 - [id number] - [id number] Implanted:Qty: 1 on 11/09/2018 by Sal Ortez MD at OR [facility] Eye [employer]OM[employer] 06/16/2023 [id number] / [id number] / [id number] documented as of this encounter Visit Diagnoses Diagnosis Malignant neoplasm of prostate (HCC) Malignant neoplasm of prostate documented in this encounter Care Teams Supervisor Housecleaner Relationship Specialty Start Date End Date Yany Coreas MD [address] [place] [address] PCP - General Internal Medicine 07/09/23 documented as of this encounter
--- OUTSIDE RECORDS SUMMARY | 2024-11-24 08:19 | External Medical Summary | Summary of Care ---
Author Name Unknown Organization [facility] Address [address] [place] [address] Phone [phone] Care Team Providers Care Component Assembler Supervisor Name Role Phone Yany Coreas MD Primary Care Provider Reason for Visit * Reason Onset Date Comments Nurse Telephone Follow Up 08/21/2024 Encounter Details Date Type Department Care Team (Late st Contact Info) Description 08/21/2024 2:00 PM EST Scheduled Telephone [facility] [address] [facility] [address] [facility] Srini Phone Call Interventional Pain [facility] [address] [place] [address] Arrived Allergies No known active allergiesdocumented as of this encounter (statuses as of 08/21/2024) Medications Medication Sig Dispensed Refills Start Date [...] as of this encounter (statuses as of 08/21/2024) Active Problems Problem Noted Date Diagnosed Date Obesity, Class II, BMI 35-39.9, isolated (see ac tual BMI) 04/09/2022 PAT (paroxysmal atrial tachycardia) 01/14/2022 1st degree AV block 01/14/2022 Acquired hypothyroidism 07/01/2020 Malignant neoplasm of prostate 06/05/2001 Cancer Staging:Clinical: Unsigned Dyslipidemia documented as of this encounter (statuses as of 08/21/2024) Resolved Problems Problem Noted Date Diagnosed Date [...] as of this encounter (statuses as of 08/21/2024) Immunizations Name Administration Dates Next Due COVID-19 [...] encounter Miscellaneous Notes * Telephone Encounter - Jamila Multani LPN - 08/21/2024 12:45 PM EST Procedure: L5/S1 interlaminar epidural steroid injection on the right side with Dr. Mitchell on 07/16/24 Attempted to contact patient. No answer, voicemail box full. documented in this encounter Plan of Treatment Upcoming Encounters Date Type Department Care Team (Late st Contact Info) Description 12/18/2024 12:00 PM EST Laboratory Laboratory [facility] [address] [facility] [place] [phone] [address] [place] [address] 12/25/2024 3:30 PM EDT Office Visit Hematology/Oncology [facility] [place] [phone] Jayant Garcia MD [address] [facility] [place] [address] 02/15/2025 3:30 PM EDT Office Visit Cardiology, [facility] [address] [place] [address] Tereso Neal PA-C [address] [place] [address] Scheduled Procedures Name Priority Associated Diagnoses Date/Ti [...] this encounter Medical Devices Implanted Type Area Nurse Practitioner Home Assessments Device Identifier Shelf Expiration Date Model / Serial / Lot Lens Intraoc 21.5 - [id number] - [id number] Implanted:Qty: 1 on 10/31/2018 by Sal Ortez MD at OR [facility] Left: Eye [employer]OM[employer] 05/16/2023 [id number] / [id number] / [id number] Lens Intraoc 20.5 - [id number] - [id number] Implanted:Qty: 1 on 11/09/2018 by Sal Ortez MD at OR [facility] Eye [employer]OM[employer] 06/16/2023 [id number] / [id number] / [id number] documented as of this encounter Care Teams Component Assembler Supervisor Relationship Specialty Start Date End Date Yany Coreas MD [address] [place] [address] PCP - General Internal Medicine 07/09/23 documented as of this encounter
--- OUTSIDE RECORDS SUMMARY | 2024-11-24 08:19 | External Medical Summary | Summary of Care ---
Author Name Unknown Organization [facility] Address [address] [place] [address] Phone [phone] Care Team Providers Care Blasting Entry Specialist Name Role Phone Yany Coreas MD Primary Care Provider Reason for Visit * Reason Comments eRx-Medication Refill Encounter Details Date Type Department Care Team (Late st Contact Info) Description 08/12/2024 Refill Family Practice [facility] [address] [place] [address] Yany Coreas MD [address] [facility] [place] [address] MIXED HYPERLIPIDEMIA - Low HDL Allergies No known active allergiesdocumented as of this encounter (statuses as of 08/16/2024) Medications Medication Sig Dispensed Refills Start Date End Date Status Aspirin 81 MG Tablet Take 1 Tablet by mouth in the morning. Active Furosemide 20 MG Oral Tablet (Lasix) TAKE 1 TABLET BY MOUTH ONCE A DAY NEEDED FOR FLUID ACCUMULATION OR WEIGHT GAIN 90 Tablet 3 3 Active Fluticasone Propionate 50 MCG/ACT Nasal Suspension (Flonase)Indicatio ns:Post-nasal drip Use 2 spray(s) in each nostril once daily 48 g 1 3 Active [facility] Iron 325 (65 Fe) MG Oral Tablet Take 1 Tablet by mouth daily with breakfast. 3 Active Magnesium 400 MG Oral Tablet Take by mouth. Active Levothyroxine Sodium 25 MCG Oral Tablet (Levoxyl)Indicatio ns:Acquired hypothyroidism Take 1 Tablet by mouth in the morning. on an empty stomach.. 90 Tablet 3 4 Active Lansoprazole 30 MG Oral Capsule Delayed Release (Prevacid)Indicati ons:Gastroesophage al reflux disease without esophagitis TAKE 1 CAPSULE BY MOUTH ONCE DAILY IN THE MORNING 30 MIN BEFORE THE FIRST MEAL OF THE DAY 90 Capsule 2 4 Active Xtandi 40 MG Oral Tablet 4 Active Orgovyx 120 MG Oral Tablet 4 Active Metoprolol Succinate ER 50 MG Oral Tablet Extended Release 24 Hour (toPROL XL)Indications:HTN , goal below 130/80,SVT (supraventricular tachycardia) (HCC) Take 1.5 Tablets by mouth in the morning. 135 Tablet 3 4 Active amLODIPine Besylate 2.5 MG Oral Tablet (Norvasc) Take 1 Tablet by mouth every evening. 90 Tablet 3 4 Active metroNIDAZOLE 0.75 % External Gel (Metrogel)Indicati ons:Rosacea APPLY TO FACE FOR ROSACEA TWICE DAILY 45 g 4 Active Celecoxib 100 MG Oral Capsule (CeleBREX) Take 1-2 capsules by mouth daily WF and water. Do not combine with other NSAIDs such as diclofenac, ibuprofen or naproxen. 60 Capsule 2 4 Active Atorvastatin Calcium 20 MG Oral Tablet (Lipitor)Indicatio ns:Mixed dyslipidemia TAKE 1 TABLET BY MOUTH IN THE MORNING 90 Tablet 4 Active Atorvastatin Calcium 20 MG Oral Tablet (Lipitor)Indicatio ns:Mixed dyslipidemia TAKE 1 TABLET BY MOUTH IN THE MORNING 90 Tablet 4 08/14/20 24 Discontinued documented as of this encounter (statuses as of 08/16/2024) Active Problems Problem Noted Date Diagnosed Date Obesity, Class II, BMI 35-39.9, isolated (see ac tual BMI) 04/09/2022 PAT (paroxysmal atrial tachycardia) 01/14/2022 1st degree AV block 01/14/2022 Acquired hypothyroidism 07/01/2020 Malignant neoplasm of prostate 06/05/2001 Cancer Staging:Clinical: Unsigned Dyslipidemia documented as of this encounter (statuses as of 08/16/2024) Resolved Problems Problem Noted Date Diagnosed Date [...] as of this encounter (statuses as of 08/16/2024) Immunizations Name Administration Dates Next Due COVID-19 [...] encounter Miscellaneous Notes * Telephone Encounter - Evert Ramirez - 08/16/2024 1:05 AM EDT Received message from [facility] regarding patient needing an appointment. Patient was notified. Successfully contacted patient and provided [facility] message. * Telephone Encounter - Adelaida Ghotra [facility] - 08/14/2024 7:06 AM EDT Signed Prescriptions: Disp Refills Atorvastatin Calcium 20 MG Oral Tablet (Li*90 Tab*0 Sig: TAKE 1 TABLET BY MOUTH IN THE MORNING Authorizing Provider: YANY COREAS Ordering User: ADELAIDA GHOTRA * Telephone Encounter - Adelaiad Ghotra [facility] - 08/14/2024 7:05 AM EDT Second Attempt Please contact patient so that an appointment can be scheduled with his PRIMARY CARE provider. Refill authorized to hold patient over in the mean time. Last Visit: 07/27/2023 (in office), 01/14/2020 (telemedicine) Next Visit: Visit date not found Thank you, Adelaida Ghotra, PharmD Clinical Pharmacist [facility] 08/14/24 7:05 AM [phone] documented in this encounter Plan of Treatment Upcoming Encounters Date Type Department Care Team (Late st Contact Info) Description 08/17/2024 10:30 AM EDT Office Visit Cardiology, [facility] [address] [place] [address] Tereso Neal PA-C [address] [place] [address] 08/21/2024 2:00 PM EST Scheduled Telephone Interventional Pain Center, [facility] [address] [place] [address] Srini, Nurse Phone Call Interventional Pain [facility] [address] [place] [address] 12/18/2024 12:00 PM EST Laboratory Laboratory [facility] [address] [facility] [place] [phone] [facility] Lab [facility] [address] [facility] [place] [address] 12/25/2024 3:30 PM EDT Office Visit Hematology/Oncology [facility] [address] [facility] [place] [phone] Jayant Garcia MD [address] [facility] [place] [address] Scheduled Procedures Name Priority Associated Diagnoses Date/Ti [...] this encounter Medical Devices Implanted Type Area Multifocal Button Grinder Device Identifier Shelf Expiration Date Model / Serial / Lot Lens Intraoc 21.5 - [id number] - [id number] Implanted:Qty: 1 on 10/31/2018 by Sal Ortez MD at OR [facility] Left: Eye [employer]OM[employer] 05/16/2023 [id number] / [id number] / [id number] Lens Intraoc 20.5 - [id number] - [id number] Implanted:Qty: 1 on 11/09/2018 by Sal Ortez MD at OR [facility] Eye BAUSCH [employer] LOMB 06/16/2023 [id number] / [id number] / [id number] documented as of this encounter Visit Diagnoses Diagnosis MIXED HYPERLIPIDEMIA - Low HDL Mixed hyperlipidemia documented in this encounter Care Teams Blasting Entry Specialist Relationship Specialty Start Date End Date Yany Coreas MD [address] [place] [address] PCP - General Internal Medicine 07/09/23 documented as of this encounter
--- OUTSIDE RECORDS SUMMARY | 2024-11-24 08:19 | External Medical Summary ---
Author Name Unknown Address Unknown Organization K01:[facility] - [address] [place] [address] Laboratory Report Ordering Provider Test Date Status YOUNGCHIP 10/18/2024 15:29:32 Final Observation Date Value Abnormality Reference (Units ) Status PSA 10/18/2024 15:29:32 <0.02 <4.10 (ng/ mL) Final Performing Location [facility] [address] [place] [address]
--- OUTSIDE RECORDS SUMMARY | 2024-11-24 08:19 | External Medical Summary | Summary of Care ---
Author Name Unknown Organization [facility] Address [address] [place] [address] Phone [phone] Care Team Providers Care Mechanical Engineering Advisor Name Role Phone Yany Coreas MD Primary Care Provider Reason for Referral * Evaluate & Treat - Unlimited Visits (Within 30 days (routine)) - Authorized Specialty Diagnoses / Procedures Referred By Contkarl t Referred To Contact Physical Therapy / Physical Medicine And Rehab Diagnoses Leg weakness, bilateral Yany Coreas MD [address] [place] [place] [address] Phone: tel: fax: Referral ID Status Reason Start Date Expiration Date Visits Requested Visits Authorized [id number] Authorized Specialty Services Required [phone] Question Answer Referral Priority Within 30 days (routine) Where should this appointment be scheduled? External Comments Bilateral leg weakness from longstanding R hip arthritis s/p TKR and low back pain. Reason for Visit * Reason Comments Physical-Exam Doing good, no richard rns. Encounter Details Date Type Department Care Team (Latest Contact Info) Description 10/04/2024 1:00 PM EST Office Visit Family Practice [facility] [address] [place] [place] [address] Yany Coreas MD [address] [place] [address] Acquired hypothyroidism*; PAT (paroxysmal atrial tachycardia) ([facility]); Leg weakness, bilateral; Gastroesophageal reflux disease without esophagitis; Rosacea; Dyslipidemia; Malignant neoplasm of prostate ([facility]); MIXED HYPERLIPIDEMIA - Low HDL Allergies No known active allergiesdocumented as of this encounter (statuses as of 10/04/2024) Medications Aspirin 81 MG Tablet Take 1 Tablet by mouth in the morning. Active Furosemide 20 MG Oral Tablet (Lasix) TAKE 1 TABLET BY MOUTH ONCE A DAY NEEDED FOR FLUID ACCUMULATION OR WEIGHT GAIN 90 Tablet 3 023 Active Fluticasone Propionate 50 MCG/ACT Nasal Suspension (Flonase)Indicati ons:Post-nasal drip Use 2 spray(s) in each nostril once daily 48 g 1 023 Active [facility] Iron 325 (65 Fe) MG Oral Tablet Take 1 Tablet by mouth daily with breakfast. 023 Active Magnesium 400 MG Oral Tablet Take by mouth. Act jose Xtandi 40 MG Oral Tablet 024 Active Orgovyx 120 MG Oral Tablet 024 Active Metoprolol Succinate ER 50 MG Oral Tablet Extended Release 24 Hour (toPROL XL)Indications:HT N, goal below 130/80,SVT (supraventricular tachycardia) ([facility]) Take 1.5 Tablets by mouth in the morning. 135 Tablet 3 024 Active amLODIPine Besylate 2.5 MG Oral Tablet (Norvasc) Take 1 Tablet by mouth every evening. 90 Tablet 3 024 Active metroNIDAZOLE 0.75 % External Gel (Metrogel)Indicat ions:Rosacea APPLY TO FACE FOR ROSACEA TWICE DAILY 45 g 024 Active Celecoxib 100 MG Oral Capsule (CeleBREX) Take 1-2 capsules by mouth daily WF and water. Do not combine with other NSAIDs such as diclofenac, ibuprofen or naproxen. 60 Capsule 2 024 Active Levothyroxine Sodium 25 MCG Oral Tablet (Levoxyl)Indicati ons:Acquired hypothyroidism Take 1 Tablet by mouth in the morning. on an empty stomach.. 90 Tablet 3 Active Lansoprazole 30 MG Oral Capsule Delayed Release (Prevacid)Indicat ions:Gastroesopha geal reflux disease without esophagitis TAKE 1 CAPSULE BY MOUTH ONCE DAILY IN THE MORNING 30 MIN BEFORE THE FIRST MEAL OF THE DAY 90 Capsule 2 Active Atorvastatin Calcium 20 MG Oral Tablet (Lipitor)Indicati ons:Mixed dyslipidemia Take 1 Tablet by mouth in the morning. 90 Tablet 3 024 Active Levothyroxine Sodium 25 MCG Oral Tablet (Levoxyl)Indicati ons:Acquired hypothyroidism Take 1 Tablet by mouth in the morning. on an empty stomach.. 90 Tablet 3 024 2023 Discontinued(R efill) Lansoprazole 30 MG Oral Capsule Delayed Release (Prevacid)Indicat ions:Gastroesopha geal reflux disease without esophagitis TAKE 1 CAPSULE BY MOUTH ONCE DAILY IN THE MORNING 30 MIN BEFORE THE FIRST MEAL OF THE DAY 90 Capsule 2 024 2023 Discontinued(R efill) Atorvastatin Calcium 20 MG Oral Tablet (Lipitor)Indicati ons:Mixed dyslipidemia TAKE 1 TABLET BY MOUTH IN THE MORNING 90 Tablet 024 2023 Discontinued(R efill) Atorvastatin Calcium 20 MG Oral Tablet (Lipitor)Indicati ons:Mixed dyslipidemia Take 1 Tablet by mouth in the morning. 90 Tablet 024 2023 Discontinued documented as of this encounter (statuses as of 10/04/2024) Active Problems Problem Noted Date Diagnosed Date Obesity, Class II, BMI 35-39.9, isolated (see ac tual BMI) 04/09/2022 PAT (paroxysmal atrial tachycardia) 01/14/2022 1st degree AV block 01/14/2022 Acquired hypothyroidism 07/01/2020 Malignant neoplasm of prostate 06/05/2001 Cancer Staging:Clinical: Unsigned Dyslipidemia documented as of this encounter (statuses as of 10/04/2024) Resolved Problems Problem Noted Date Diagnosed Date [...] as of this encounter (statuses as of 10/04/2024) Immunizations Name Administration Dates Next Due COVID-19 mRNA, LNP-s, No Pre serve, 2-Dose Series ([employer]) 01/13/2021,12/16/2020 COVID-19, MRNA-LNP, PF, 30 M CG/0.3 mL, 12 YRS AND ABOVE, IM (XMLAW-Comirnat) 10/01/2023 Pneumococcal Conjugate Vacc, 13 Valent (Prevnar) 05/22/2015 [...] Date Smoking Tobacco: Never Smokeless Tobacco: Never Tobacco Cessation:Counseling Given: Not Answered Alcohol Use Standard Drinks/Week Comments Yes 0 [...] 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 Not on file Not on f ile documented as of this encounter Last Filed Vital Signs Vital Sign Reading Time Taken Comments Blood Pressure 118/66 10/04/2024 12:41 PM EST Pulse 110 10/04/2024 12:41 PM EST Temperature - - Respiratory Rate 18 10/04/2024 12:41 PM EST Oxygen Saturation 98% 10/04/2024 12:41 PM EST Inhaled Oxygen Concentration - - Weight 109.8 kg (242 lb) 10/04/2024 12:41 PM EST Height 172.7 cm (5' 8") 10/04/2024 12:41 PM EST Body Mass Index 36.8 10/04/2024 12:41 PM EST documented in this encounter Patient Instructions * Patient Instructions* Yany Coreas MD - 10/04/2024 1:23 PM EST Next Steps: -- next time you are at the doctor, if your blood pressure is still low let me or Cardiology know. We may be able to stop your amlodipine. documented in this encounter Progress Notes * Yany Coreas MD - 10/04/2024 1:09 PM EST Images from the original note were not included. History of Present Illness Ankit Morgan is a 79 year old male that presents for Physical-Exam (Doing good, no concerns.) Saw Cardiology in August for chronic SVT/PAT. Continue metoprolol. Hypertension - amlodipine, furosemide (a few times/wk). 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 Prostate cancer - [facility] in [place]. Dr De Los Santos, has appt in October. Hip replacement 07/2023 - R-side, worked well. Low back pain, working with interventional pain management. Has some lower extremity weakness, would like to work with physical therapy Hypothyroidism - levothyroxine 25. TSH nl in April. Euthyroid. Dyslipidemia - atorvastatin 20 Rosacea - Metrogel working well GERD - lansoprazole daily, does cough up think sputum some times, no heartburn sx. Exercise: plans to walk more in spring with good weather Eating: eating veggies, no concerns. Overall appetite is down. Mood is good. Family doing well. Nicotine: none Cannabis: none Alcohol: not much. Current with eye doctor and dentist. No skin lesions of concern. Current medications and allergies reviewed. Past medical history and problem list reviewed. Physical Exam Vitals: 10/04/24 1241 Pulse: 110 Resp: 18 SpO2: 98% BP: 118/66 BMI: 36.8 BP Readings from Last 3 Encounters: 10/04/24 118/66 08/17/24 118/58 07/16/24 139/38 Wt Readings from Last 3 Encounters: 10/04/24 242 lb (109.8 kg) 08/17/24 239 lb 1.6 oz (108.5 kg) 06/26/24 244 lb (110.7 kg) Physical Exam Vitals and nursing note reviewed. Constitutional: General: He is not in acute distress. Appearance: Normal appearance. He is not ill-appearing. HENT: Head: Normocephalic and atraumatic. Right Ear: Tympanic membrane, ear canal and external ear normal. There is no impacted cerumen. Left Ear: Tympanic membrane, ear canal and external ear normal. There is no impacted cerumen. Nose: Nose normal. Mouth/Throat: Mouth: Mucous membranes are moist. Pharynx: Oropharynx is clear. No oropharyngeal exudate. Eyes: General: No scleral icterus. Right eye: No discharge. Left eye: No discharge. Conjunctiva/sclera: Conjunctivae normal. Pupils: Pupils are equal, round, and reactive to light. Neck: Thyroid: No thyroid mass, thyromegaly or thyroid tenderness. Cardiovascular: Rate and Rhythm: Normal rate and regular rhythm. Heart sounds: No murmur heard. Pulmonary: Effort: Pulmonary effort is normal. Breath sounds: Normal breath sounds. Abdominal: General: Abdomen is flat. Palpations: Abdomen is soft. Tenderness: There is no abdominal tenderness. There is no guarding. Comments: Umbilical hernia, easily reduced No incisional hernia from prostatectomy Musculoskeletal: Right lower leg: No edema. Left lower leg: No edema. Comments: Can get out of chair and climb up onto exam table, but is slow and unsteady. Walking witha cane Lymphadenopathy: Cervical: No cervical adenopathy. Skin: General: Skin is warm and dry. Neurological: Mental Status: He is alert. Psychiatric: Mood and Affect: Mood normal. Behavior: Behavior normal. I have reviewed the following results: Testosterone, CMP, Lipid Panel, TSH, CBC, BMP, and PSA Assessment and Plan Acquired hypothyroidism Clinically euthyroid, continue current dose - Levothyroxine Sodium 25 MCG Oral Tablet (Levoxyl); Take 1 Tablet by mouth in the morning. on an empty stomach.. PAT (paroxysmal atrial tachycardia) (HCC) Attributes current mild tachycardia to dehydration. Will focus on staying well hydrated. Patient Instructions Next Steps: -- next time you are at the doctor, if your blood pressure is still low let me or Cardiology know. We may be able to stop your amlodipine. Leg weakness, bilateral - PHYSICAL THERAPY REFERRAL OP Gastroesophageal reflux disease without esophagitis - Lansoprazole 30 MG Oral Capsule Delayed Release (Prevacid); TAKE 1 CAPSULE BY MOUTH ONCE DAILY INTHE MORNING 30 MIN BEFORE THE FIRST MEAL OF THE DAY Rosacea Continue Metrogel Dyslipidemia Continue statin Malignant neoplasm of prostate (HCC) Per [facility] MIXED HYPERLIPIDEMIA - Low HDL - Atorvastatin Calcium 20 MG Oral Tablet (Lipitor); Take 1 Tablet by mouth in the morning. Wrap-Up Follow Up: Return in about 1 year (around 10/04/2025) for Return with Joss. | For: Return with Joss Time: I spent a total of 30-39 minutes (exact time 35 mins) on the date of service in preparation, delivery, and documentation of the care provided to Ankit Morgan excluding any time spent in the performance of separately billed services. documented in this encounter Plan of Treatment Upcoming Encounters Date Type Department Care Team (Late st Contact Info) Description 12/18/2024 12:00 PM EST Laboratory [facility] [address] [place] [phone] [facility] [address] [address] [address] 12/25/2024 3:30 PM EDT Office Visit [place]ology[place] [facility] [place] [place] [facility] [address] [address] [phone] Jayant Garcia MD [address] [place] [address] 02/15/2025 3:30 PM EDT Office Visit Cardiology, [facility] [address] [place] [address] Tereso Neal PA-C [address] [place] [address] 10/07/2025 3:20 PM EST Office Visit Family Practice [facility] [address] [place] [address] Yany Coreas MD [address] [place] [address] Scheduled Procedures Name Priority Associated Diagnoses Date/Ti me COLONOSCOPY FLEXIBLE PROXIMAL DIAGNOSTIC Recall Colon cancer screening Scheduled Referrals Name Type Priority Associated Diagnoses Orde r Schedule PHYSICAL THERAPY REFERRAL OP Referral Within 30 days (routine) Leg weakness, bilateral Ordered: 10/04/2024 Health Maintenance Due Date Last Done Comments Adult Wellness Visit 06/08/2024 06/08/2023 TSH 05/07/2025 05/07/2024, 10/2022, 05/02/2023, Additional history exists Depression Screening 10/04/2025 10/04/2024 DTap/Tdap Vaccines (3 - Td or Tdap) 04/25/2033 04/25/2023, 04/07/2012, 06/01/2001 Pneumococcal Vaccine: 65+ Years Completed 05/22/2015, 07/07/2012, 04/07/2012 Zoster Vaccines Completed 10/28/2018, 0 01/2018, 06/15/2012 COVID-19 Vaccine Discontinued 10/01/2023, , 12/16/2020 Influenza Vaccine (FLU shot) Completed 08/10/2024, 07/09/2023, [...] this encounter Medical Devices Implanted Type Area It Associate Device Identifier Shelf Expiration Date Model / Serial / Lot Lens Intraoc 21.5 - [id number] - [id number] Implanted:Qty: 1 on 10/31/2018 by Sal Ortez MD at OR [facility] Left: Eye BAUSCH [employer] LOMB 05/16/2023 [id number] / [id number] / [id number] Lens Intraoc 20.5 - [id number] - [id number] Implanted:Qty: 1 on 11/09/2018 by Sal Ortez MD at OR [facility] Eye BAUSCH & LOMB 06/16/2023 [id number] / [id number] / [id number] documented as of this encounter Visit Diagnoses Diagnosis Acquired hypothyroidism- Primary Unspecified hypothyroidism PAT (paroxysmal atrial tachycardia) (HCC) Paroxysmal supraventricular tachycardia Leg weakness, bilateral Other musculoskeletal symptoms referable to limbs Gastroesophageal reflux disease without esophagitis Esophageal reflux Rosacea Dyslipidemia Other and unspecified hyperlipidemia Malignant neoplasm of prostate (HCC) Malignant neoplasm of prostate MIXED HYPERLIPIDEMIA - Low HDL Mixed hyperlipidemia documented in this encounter Care Teams Mechanical Engineering Advisor Relationship Specialty Start Date End Date Yany Coreas MD [address] [place] [address] PCP - General Internal Medicine 07/09/23 documented as of this encounter
--- OUTSIDE RECORDS SUMMARY | 2024-11-24 08:19 | External Medical Summary | Summary of Care ---
Author Name Unknown Organization [facility] Address [address] [place] [address] Phone [phone] Care Team Providers Care Braid Maker Name Role Phone Yany Coreas MD Primary Care Provider Encounter Details Date Type Department Care Team (Late st Contact Info) Description 11/08/2024 Population Health External Data Unspecified Department Allergies No known active allergiesdocumented as of this encounter (statuses as of 11/08/2024) Medications Aspirin 81 MG Tablet Take 1 [...] as of this encounter (statuses as of 11/08/2024) Active Problems Problem Noted Date Diagnosed Date Obesity, Class II, BMI 35-39.9, isolated (see ac tual BMI) 04/09/2022 PAT (paroxysmal atrial tachycardia) 01/14/2022 1st degree AV block 01/14/2022 Acquired hypothyroidism 07/01/2020 Malignant neoplasm of prostate 06/05/2001 Cancer Staging:Clinical: Unsigned Dyslipidemia documented as of this encounter (statuses as of 11/08/2024) Resolved Problems Problem Noted Date Diagnosed Date [...] as of this encounter (statuses as of 11/08/2024) Immunizations Name Administration Dates Next Due COVID-19 [...] 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 Not on file Not on f ile documented as of this encounter Plan of Treatment Upcoming Encounters Date Type Department Care Team (Late st Contact Info) Description 12/18/2024 12:00 PM EST Laboratory Laboratory [facility] [address] [place] [phone] [facility] [address] [facility] [place] [facility] [place] [address] 12/25/2024 3:30 PM EDT Office Visit Hematology/Oncology [facility] [address] [place] [phone] Jayant Garcia MD [address] [place] [address] 02/15/2025 3:30 PM EDT Office Visit Cardiology, [facility] [address] [place] [place] [address] Tereso Neal PATreverC [address] [place] [address] 10/07/2025 3:20 PM EST Office Visit Family Practice [facility] [address] [place] [address] Yany Coreas MD [address] [place] [address] Scheduled Procedures Name Priority Associated Diagnoses Date/Ti me COLONOSCOPY FLEXIBLE PROXIMAL DIAGNOSTIC Recall Colon cancer screening Health Maintenance Due Date Last Done Comments Adult Wellness Visit 06/08/2024 06/08/2023 TSH 05/07/2025 05/07/2024, 08/0 10/2022, 05/02/2023, Additional history exists Depression Screening [...] this encounter Medical Devices Implanted Type Area Kelp Gatherer Device Identifier Shelf Expiration Date Model / Serial / Lot Lens Intraoc 21.5 - [id number] - [id number] Implanted:Qty: 1 on 10/31/2018 by Sal Ortez MD at OR [facility] Left: Eye BAUSCH [employer] LOMB 05/16/2023 [id number] / [id number] / [id number] Lens Intraoc 20.5 - [id number] - [id number] Implanted:Qty: 1 on 11/09/2018 by Sal Ortez MD at OR [facility] Eye BAUSCH [employer] LOMB 06/16/2023 [id number] / [id number] / [id number] documented as of this encounter Care Teams Braid Maker Relationship Specialty Start Date End Date Yany Coreas MD [address] [place] [address] PCP - General Internal Medicine 07/09/23 documented as of this encounter
--- OUTSIDE RECORDS SUMMARY | 2024-11-24 08:19 | External Medical Summary | Summary of Care ---
Author Name Unknown Organization [facility] Address [address] [place] [address] Phone [phone] Care Team Providers Care Photolettering Machine Operator Name Role Phone Yany Coreas MD Primary Care Provider Reason for Visit * Reason Onset Date Comments Medication Refill 10/18/2024 Encounter Details Date Type Department Care Team (Late st Contact Info) Description 10/18/2024 Refill Family Practice 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 file Not on f ile documented as of this encounter Miscellaneous Notes * Telephone Encounter - Astrid Ramirez - 10/18/2024 4:37 PM ESTRefused Prescriptions: Disp Refills Lansoprazole 30 MG Oral Capsule Delayed Re*90 Cap*2 Sig: TAKE 1CAPSULE BY MOUTH ONCE DAILY IN THE MORNING 30 MIN BEFORE THE FIRST MEAL OF THE DAYRefused By: KEVIN RAMIREZeason for Refusal: Duplicate Request documented in this encounter Plan of Treatment Upcoming Encounters Date Type Department Care Team (Late st Contact Info) Description 12/18/2024 12:00 PM EST Laboratory [facility] [address] [place] [phone] Iveth Ly [address] [place], [place] [address] 12/25/2024 3:30 PM EDT Office Visit Hematology/Oncology [facility] [address] [place] [phone] Jayant Garcia MD [address] [place] [address] 02/15/2025 3:30 PM EDT Office Visit Cardiology, [facility] [address] [place] [address] Tereso Neal PA-C [address] [place] [address] 10/07/2025 3:20 PM EST Office Visit Family Practice [facility] [address] [place] [address] Yany Coreas MD [address] [place] [address] Scheduled Procedures Name Priority Associated Diagnoses Date/Ti [...] this encounter Medical Devices Implanted Type Area Fish Fryer Device Identifier Shelf Expiration Date Model / Serial / Lot Lens Intraoc 21.5 - [id number] - [id number] Implanted:Qty: 1 on 10/31/2018 by Sal Ortez MD at OR [facility] Left: Eye BAUSCH & LOMB 05/16/2023 [id number] / [id number] / [id number] Lens Intraoc 20.5 - [id number] - [id number] Implanted:Qty: 1 on 11/09/2018 by Sal Ortez MD at OR [facility] Eye BAUSCH [employer] LOMB 06/16/2023 [id number] / [id number] / [id number] documented as of this encounter Visit Diagnoses Diagnosis Gastroesophageal reflux disease without esophagitis Esophageal reflux documented in this encounter Care Teams Photolettering Machine Operator Relationship Specialty Start Date End Date Yany Coreas MD [address] [place] [address] PCP - General Internal Medicine 07/09/23 documented as of this encounter
--- OUTSIDE RECORDS SUMMARY | 2024-11-24 08:19 | External Medical Summary ---
Author Name Unknown Address Unknown Organization K09:[facility] [place] [address] Laboratory Report Ordering Provider Test Date Status YOUNGCHIP 10/18/2024 15:29:32 Final Observation Date Value Abnormality Reference (Units ) Status Nucleated erythrocytes/100 leukocytes [Ratio] in Blood by Automated count 10/18/2024 15:29:32 Final Performing Location [facility] [place] [address]
--- OUTSIDE RECORDS SUMMARY | 2024-11-24 08:19 | External Medical Summary ---
Author Name Unknown Address Unknown Organization [id number][facility] [place] [address] [place] [address] Laboratory Report Ordering Provider Test Date Status CHIP VDIAL 10/18/2024 15:29:32 Final Observation Date Value Abnormality Reference (Units ) Status Testosterone [Mass/volume] in Serum or Plasma 10/18/2024 15:29:32 5.2 Below low normal 193.0-740.0 (ng/dL) Final Performing Location [facility] [place] [address] [place] [address]
--- OUTSIDE RECORDS SUMMARY | 2024-11-24 08:19 | External Medical Summary ---
Author Name Unknown Address Unknown Organization [id number]:[facility] [place] [address] Laboratory Report Ordering Provider Test Date Status CHIP VIDAL 10/18/2024 15:29:32 Final Observation Date Value Abnormality Reference (Units ) Status SYNC LEUKOCYTES IN BLOOD BY AUTOMATED COUNT 10/18/2024 15:29:32 5.32 4.00-10.80 (K/uL) Final Segs 10/18/2024 15:29:32 57.0 40.0-75.0 (%) Final Lymphs % 10/18/2024 15:29:32 28.9 18.0-42.0 (%) Final Monos 10/18/2024 15:29:32 8.5 1.0-11.0 (%) Final Eosinophils 10/18/2024 15:29:32 3.2 0.0-6.0 (%) Final Basos 10/18/2024 15:29:32 2.4 Above high normal 0.0-2.0 (%) Final Absolute Segs 10/18/2024 15:29:32 3.03 1.80-7.70 (K/uL) Final Lymphs, absolute 10/18/2024 15:29:32 1.54 1.00-4.80 (K/ul) Final Monos, Abs 10/18/2024 15:29:32 0.45 0.00-1.10 (K/uL) Final Eos, Abs 10/18/2024 15:29:32 0.17 0.00-0.70 (K/uL) Final Basos, Abs 10/18/2024 15:29:32 0.13 0.00-0.20 (K/uL) Final Performing Location [facility] [place] [place] [address]
--- OUTSIDE RECORDS SUMMARY | 2024-11-24 08:19 | External Medical Summary ---
Author Name Unknown Address Unknown Organization [id number][facility] [place] [address] [place] [address] Laboratory Report Ordering Provider Test Date Status CHIP VIDAL 10/18/2024 15:29:32 Final Observation Date Value Abnormality Reference (Units ) Status BUN 10/18/2024 15:29:32 19 6-20 (mg/dL) Final Creatinine 10/18/2024 15:29:32 1.0 0.6-1.2 (mg/dL) Final Glomerular filtration rate/1.73 sq M.predicted [Volume Rate/Area] in Serum, Plasma or Blood by Creatinine-based formula (CKD-EPI) 10/18/2024 15:29:32 80 >=60 (mL/min) Final eGFR is calculated based on the CKD-EPI 2020 equation. Sodium 10/18/2024 15:29:32 141 135-146 (m mol/L) Final Potassium 10/18/2024 15:29:32 4.7 3.5-5.1 (m mol/L) Final Cl 10/18/2024 15:29:32 106 98-107 (mm ol/L) Final CO2 10/18/2024 15:29:32 24 22-32 (mmo l/L) Final Anion gap 10/18/2024 15:29:32 11 7-15 (mmol /L) Final Glucose 10/18/2024 15:29:32 103 70-120 (mg /dL) Final Albumin 10/18/2024 15:29:32 4.1 3.8-5.0 (g /dL) Final AST (Aspartate aminotransferase) 10/18/2024 15:29:32 11 10-50 (U/L) Fin al Alk Phos 10/18/2024 15:29:32 81 35-130 (U/ L) Final Bilirubin, Total 10/18/2024 15:29:32 0.3 <=1 .2 (mg/dL) Final Calcium 10/18/2024 15:29:32 9.3 8.4-10.2 ( mg/dL) Final Protein 10/18/2024 15:29:32 6.3 6.0-8.3 (g /dL) Final ALT (Alanine aminotransferase) 10/18/2024 15:29:32 9 Below low normal 10-50 (U/L) Final Performing Location [facility] [place] Formerly named [facility] [address] [facility] [address]
--- OUTSIDE RECORDS SUMMARY | 2024-11-24 08:20 | External Medical Summary | Summary of Care ---
Author Name Unknown Organization [facility] Address [address] [place] [address] Phone [phone] Care Team Providers Care Civil Technician Name Role Phone Yany Coreas MD Primary Care Provider Reason for Visit * Auth/Cert Specialty Diagnoses / Procedures Referred By Sol t Referred To Contact Diagnoses Lumbar radiculopathy Lumbar radiculopathy [M54.16] Procedures INJECT DX/THER SUBSTANCE INTERLAMINAR LUMBAR/SACRAL W IMAGE GUIDE INJECTION SPINE LUMBAR OR SACRAL Bebo Mitchell DO [address] [place] [phone] Or [facility] [address] [place] [phone] Referral ID Status Reason Start Date Expiration Date Visits Re quested Visits Authorized [id number] Encounter Details Date Type Department Care Team (Latest Contact Info) Description 07/16/2024 1:18 PM EDT - 07/16/2024 2:26 PM EDT Hospital Encounter OR [facility], Operating Room [facility] [address] [place] [phone] Bebo Mitchell DO [address] [place] [phone] Discharge Disposition: Home - Self Care Allergies No known active allergiesdocumented as of this encounter (statuses as of 07/17/2024) Medications Medication Sig Dispensed Refills Start Date [...] as of this encounter (statuses as of 07/17/2024) Active Problems Problem Noted Date Diagnosed Date Obesity, Class II, BMI 35-39.9, isolated (see ac tual BMI) 04/09/2022 PAT (paroxysmal atrial tachycardia) 01/14/2022 1st degree AV block 01/14/2022 Acquired hypothyroidism 07/01/2020 Malignant neoplasm of prostate 06/05/2001 Cancer Staging:Clinical: Unsigned Dyslipidemia documented as of this encounter (statuses as of 07/17/2024) Resolved Problems Problem Noted Date Diagnosed Date [...] as of this encounter (statuses as of 07/17/2024) Immunizations Name Administration Dates Next Due COVID-19 mRNA, LNP-s, No Pre serve, 2-Dose Series ([employer]) 01/13/2021,12/16/2020 Pneumococcal Conjugate Vacc, 13 Valent (Prevnar) 05/22/2015 Pneumococcal Polysaccharide PPV23 (Pneumovax) 07/07/2012,04/07/2012 Season Influenza, Quad, PF, Adjuvanted, 65+ Yrs, IM (FLUAD) 07/01/2020 Seasonal Influenza, PF, 6 M & above, IM , (FluLaval or Fluzone) 08/10/2018,07/30/2017 Seasonal Influenza, Quadriva lent Hd (Fluzone Hd) 07/09/2023,08/17/2022,07/08/2021 Seasonal Influenza, Quadriva lent, No Preserve, IM 07/31/2016,07/22/2015 Seasonal Influenza, Trivalen t, (IIV3), with Preserv, (Fluzone) 07/20/2014,07/07/2013,07/14/2012,06/18,08/14/2010 07/20/2015 Seasonal Influenza, Trivalen t, Adjuvanted, 65+ YRS, [...] 18 years and over) Not on file 08/22/202 3 Are you (or your family) gage eless [...] Sign Reading Time Taken Comments Blood Pressure 139/38 07/16/2024 2:22 PM EDT Pulse 67 07/16/2024 2:22 PM EDT Temperature 36.1 C (97 F) 07/16/2024 1:39 PM EDT Respiratory Rate 12 07/16/2024 2:22 PM EDT Oxygen Saturation 98% 07/16/2024 2:22 PM EDT Inhaled Oxygen Concentration - - Weight - - Height - - Body Mass Index - - documented in this encounter Discharge Instructions * Discharge Instr - AVS* Bebo Mitchell DO - 07/16/2024 2:21 PM EDT [facility] [address] [facility] [place] [address] Discharge Date: 07/16/2024 You may call [facility] at [phone] during business hours. For after-hours emergencies call 911. Your attending physician at the time of your discharge was: Bebo Mitchell DO [address] [place] [phone] The information below provides you with the instructions and the list of medications you need to betaking following discharge from the hospital. If you have any questions, please ask before leaving.Please carry this letter with you when you see your doctor in the clinic. Diet: Resume your normal diet If you are diabetic, follow your blood sugars closely for next 2-3 days as they are likely to be elevated. If you are having difficulty controlling your blood sugars call your family doctor or the physician that treats your diabetes. Activity: Do not engage in strenuous activity today Resume your normal activities tomorrow Do not soak in water for 24 hours. No swimming, hot tub or bath but showering is allowed. Do not use heat on the injection site for 24 hours. If uncomfortable ice may be helpful. Some injections may make your arms or legs weak for a few hours. Be extremely careful when walking or changing positions that you do not fall. Have someone assist you for the next 6 hours. If weakness or numbness becomes progressive CALL IMMEDIATELY or GO TO THE NEAREST EMERGENCY ROOM Do not restart physical therapy or chiropractic manipulation until 48 hours after your injection Call : If weakness or numbness suddenly becomes worse or become progressive If the injection site becomes red, swollen, warm to the touch, begins to bleed or drain fluid, or is excessively painful. If you have any questions Medications: Resume all the medications you were taking prior to your injection. Resume your anticoagulants tomorrow unless otherwise instructed by your family physician, student life coordinator or the anticoagulation clinic. Additional Instructions: None Driving: You may resume driving in 12-24 hours if no weakness is noted . Date you may return to work or school: N/A Follow Up: Please make a follow-up telephone appointment with our nursing staff in 4-6 weeks. documented in this encounter Progress Notes * Bebo Mitchell DO - 07/16/2024 2:[address] [facility] [address] [place] [phone] OUTPATIENT SURGERY DISCHARGE SUMMARY NOTE Name: Ankit Morgan Location: OR [facility]/OR Date: 07/16/2024 Time: 2:21 PM Surgery Date: 07/16/2024 Procedure: INJECTION SPINE LUMBAR OR SACRAL No laterality found for procedure #1 Surgeon: Bebo Mitchell DO Discharge Diagnosis: lumbar radicular pain After examination of this patient, I have determined he is ready for discharge to home when the patient meets criteria. Discharge instructions were given to the patient. Bebo Mitchell DO OR [facility], Operating Room [facility] [address] [facility] [place] [phone] documented in this encounter H&P Notes * Bebo Mitchell DO - 07/16/2024 2:00 PM EDT Interventional Pain H&P Subjective: History of Present Illness: Ankit Morgan is a 79 year old year-old male with a past medical history significant for lumbosacral radicular pain who is presenting for L5/S1 DOTTY to improve his pain and function. his pain is essentially unchanged since our last office visit with him. ASA 3 AW nml Review of Systems: A focused 12-pt ROS were of reviewed with the patient including difficulty with sleep, snoring, aspiration history, dysphagia, stomach pain, nausea and vomiting, severe headaches, confusion, open skin lesions or wounds, chest pain, shortness of breath, excessive thirst, somnolence, dysuria, incomplete bladder emptying, easy bruising, recent clotting problems or bleeding, depression or rushed thoughts unless noted previously. Review of patient's allergies indicates: No Known Allergies Medications, Past Medical History, Past Surgical History reviewed and documented in Epic. See detailed report if needed. Pertinent Labs/Test Results: No results found for: "INR" No results found for: "CREATININE" No results found for: "HGBA1C", "[id number]" Lab Results Component Value Date/Time URINE PROTEIN, 24HR URN - [facility] <4 12/12/2023 10:07 AM Imaging: I personally reviewed the imaging and my findings were . FLUORO INTERVENTIONAL PAIN PROCEDURE NONBILLABLE This procedure will not be read by a Radiologist. Please see operative note. Objective Physical Exam: Vital Signs: BP 142/50 | Pulse 63 | Temp 36.1 C (97 F) (Tympanic) | Resp 14 | SpO2 98% There isno height or weight on file to calculate BMI. General: No apparent distress. Eyes: pupils equal and round, sclera white, pupils midsize. ENT: mucous membranes moist Resp: Non-labored breathing CV: Extremities warm and well-perfused. Psych: Oriented; affect warm, insight good. Skin: No rashes or lesions appreciated on exposed skin Neuromuscular Exam: Facet loading neg, SLR pos, TTT over lumbar spine Assessment: Ankit is a 79 year old year-old male with: Lumbar radicular pain Plan: The patient is undergoing L5/S1 DOTTY today to alleviate his pain and improve his function. The risks, benefits and alternatives to the procedure were reviewed at length and the patient was provided the opportunity to ask questions which were answered to their voiced understanding. Following this comprehensive discussion, the patient opted to proceed. The patient was consented to the procedure following this comprehensive conversation. Bebo Mitchell DO OR [facility], Operating Room [address] [address] documented in this encounter Nursing Notes * Paula Tavera RN - 07/16/2024 2:25 PM EDT Visited by Dr Mitchell. Verbalized understanding of discharge directions. Ready for discharge to home. * Graciela De Santiago RN - 07/16/2024 2:16 PM EDT Patient tolerating pain management injection well. documented in this encounter OR Notes * OR Surgeon - Bebo Mitchell DO - 07/16/2024 2:20 PM EDT INTERLAMINAR LUMBAR EPIDURAL STEROID INJECTION DATE: 07/16/2024 PHYSICIAN: Bebo Mitchell DO PREOPERATIVE DIAGNOSIS: Lumbar spondylosis with lumbar radiculopathy. POSTOPERATIVE DIAGNOSIS: Lumbar spondylosis with lumbar radiculopathy. PROCEDURE PERFORMED: L5/S1 interlaminar epidural steroid injection on the right side. Fluoroscopy for precise needle placement. ANESTHESIA: Local infiltration with 1% lidocaine. MONITORS: Automatic blood pressure cuff, pulse oximetry. There was no college sports assistant, EBL or drains placed during this procedure. INDICATIONS: I had the pleasure of seeing Ankit Morgan ([id number]) in the pain management clinic atthe [facility] today. Ankit Morgan is a 79 year old year-old male has a history of lumbar radiculopathy. he is here today for an interlaminar lumbar epidural steroid injection today. MEDICATIONS: No current facility-administered medications for this encounter. ALLERGIES: Review of patient's allergies indicates: No Known Allergies REVIEW OF SYSTEMS: Negative for fever, chills, chest pain, SOB, bleeding abnormalities, nausea, vomiting, diarrhea, worsening edema, or new rashes. FOCUSED PHYSICAL EXAMINATION: The patient is awake, alert and oriented, and is in no acute distress. Vital signs are stable. The patient is afebrile. The rest of the PE is essentially unchanged from the patient's recent visit to our office. I explained the procedure to the patient including the risks, benefits and alternatives to the procedure. The risks discussed with the patient included but were not limited to: bleeding, infection, and damage to surrounding nerves, tissues, and organs, paralysis, increased pain, pain at the site ofinjection, allergic reaction, blood pressure instability, seizures, heart block, headaches, increase in blood sugar, worsening of glaucoma, blindness, manic episodes, mood instability, . Alternatives to the procedure were also explained and include: do nothing, surgery, medications, and physical therapy. The patient verbalized understanding and was willing to proceed. PROCEDURE IN DETAIL: An informed consent was obtained. The patient was taken to the procedure room,was positively identified by the staff and attending physician. The patient was positioned prone onthe procedure bed. Vital signs were monitored as above and remained stable throughout the procedure. The skin was prepped and draped in a standard sterile fashion. A surgical pause time-out was performed and agreed upon by the members of the team. Fluoroscopic view of the lumbar spine was obtained and the area of interest was identified. The skin and subcutaneous tissues were anesthetized using 1% lidocaine and 25-gauge 1-1/2 inch needle. After that, a 20-gauge, 3.5-inch epidural needle was advanced towards the L5/S1 interlaminar windowin the right paramedian position. AP, contralateral oblique and lateral views were used to assess appropriate needle position. Loss of resistance to air technique was utilized and was obtained at 8 cm from the skin. The needle's position was additionally verified by injecting radiopaque dye, which showed spread of the dye in the epidural space in AP and lateral views. After negative aspiration for CSF and blood, 80 mg of Kenalog diluted in 2 mL of 1% lidocaine and 1mL of sterile PFNS was injected into the epidural space. The needle was withdrawn. The patient tolerated the procedure well. COMPLICATIONS: None. DISPOSITION: 1. Return to clinic in 1-2 months for follow-up evaluation, sooner as needed. 2. Resume activity as tolerated. 3. Patient can drive after 12-24 hours if no weakness noted. Bebo Mitchell DO OR [facility], Operating Room [facility] [address] [place] [phone] documented in this encounter Plan of Treatment Upcoming Encounters Date Type Department Care Team (Late st Contact Info) Description 08/01/2024 2:30 PM EDT Cardiac Studies Cardiac Studies, [facility] [address] [facility] [place] [address] 08/01/2024 3:30 PM EDT Cardiac Studies Cardiac Studies, [facility] [address] [place] [address] 08/17/2024 10:30 AM EDT Office Visit Cardiology, [facility] [address] [place] [address] Tereso Neal PA-C [address] [place] [address] 08/21/2024 2:00 PM EST Scheduled Telephone Interventional Pain Center, [facility] [place] [address] Srini Nurse Phone Call Interventional Pain Neena [address] [place] [address] 12/18/2024 12:00 PM EST Laboratory Laboratory [facility] [address] [place] [phone] [facility] [address] [place] [address] 12/25/2024 3:30 PM EDT Office Visit Hematology/Oncology [facility] [place] [address] [place] [phone] Jayant Garcia MD [address] [place] [address] Scheduled Procedures Name Priority Associated Diagnoses Date/Ti [...] this encounter Medical Devices Implanted Type Area Drum Printer Device Identifier Shelf Expiration Date Model / Serial / Lot Lens Intraoc 21.5 - [id number] - [id number] Implanted:Qty: 1 on 10/31/2018 by Sal Ortez MD at OR [facility] Left: Eye [employer] 05/16/2023 [id number] / [id number] / [id number] Lens Intraoc 20.5 - [id number] - [id number] Implanted:Qty: 1 on 11/09/2018 by Sal Ortez MD at OR [facility] Eye [employer] 06/16/2023 [id number] / [id number] / [id number] documented as of this encounter Procedures Procedure Name Priority Date/Time Associated Diagnosis Comments FLUORO INTERVENTIONAL PAIN PROCEDURE NONBILLABLE Routine 07/16/2024 2:27 PM EDT documented in this encounter Results * FLUORO INTERVENTIONAL PAIN PROCEDURE NONBILLABLE (07/16/2024 2:27 PM EDT) Narrative Scheduling, Silent - 07/16/2024 2:27 PM EDT This procedure will not be read by a Radiologist. Please see operative note. Bebo [facility] FLUOROSCOPY documented in this encounter Administered Medications Inactive Administered Medications - up to 3 most recent administrations Medication Order MAR Action Action Date Dose Rate Site Iohexol (Omnipaque 240) inj 0.5 mL 0.5 mL, Epidural, ONCE, On Tue07/16/24 at 1415, For 1 dose, For caudal epidural Given 07/16/2024 2:17 PM EDT 1 mL lidocaine 1 % inj 20 mg 20 mg (2 mL), Subcutaneous, ONCE, On Tue07/16/24 at 1415, For 1 dose Given 07/16/2024 2:15 PM EDT 5 mL O ther-Specify Triamcinolone Acetonide (Kenalog) 40 MG/ML inj 40 mg 40 mg, Injection, ONCE, On Tue07/16/24 at 1415, For 1 dose Given 07/16/2024 2:17 PM EDT 80 mg documented in this encounter Active and Recently Administered Medications Times are shown in EDT. Scheduled Medication Order 07/14/2024 07/15/2024 07/16/2024 Iohexol (Omnipaque 240) inj 0.5 mL (COMPLETED) 0.5 mL, Epidural, ONCE, On Tue07/16/24 at 1415, For 1 dose, For caudal epidural 1417 (Given - Provid er: Graciela De Santiago RN) lidocaine 1 % inj 20 mg (COMPLETED) 20 mg (2 mL), Subcutaneous, ONCE, On Tue07/16/24 at 1415, For 1 dose 1415 (Given - Provid er: Graciela De Santiago RN) Triamcinolone Acetonide (Kenalog) 40 MG/ML inj 40 mg (COMPLETED) 40 mg, Injection, ONCE, On Tue07/16/24 at 1415, For 1 dose 1417 (Given - Provid er: Graciela De Santiago RN) documented in this encounter Care Teams Civil Technician Relationship Specialty Start Date End Date Yany Coreas MD [address] [place] [address] PCP - General Internal Medicine 07/09/23 documented as of this encounter
--- OUTSIDE RECORDS SUMMARY | 2024-11-24 08:20 | External Medical Summary ---
Author Name Unknown Address Unknown Organization K09:[facility] [place] [address] Laboratory Report Ordering Provider Test Date Status TONE LAMB 06/20/2024 16:08:17 Final Observation Date Value Abnormality Reference (Units ) Status SYNC LEUKOCYTES IN BLOOD BY AUTOMATED COUNT 06/20/2024 16:08:17 5.75 4.00-10.80 (K/uL) Final Segs 06/20/2024 16:08:17 56.0 40.0-75.0 (%) Final Lymphs % 06/20/2024 16:08:17 28.3 18.0-42.0 (%) Final Monos 06/20/2024 16:08:17 8.0 1.0-11.0 (%) Final Eosinophils 06/20/2024 16:08:17 4.2 0.0-6.0 (%) Final Basos 06/20/2024 16:08:17 3.5 Above high normal 0.0-2.0 (%) Final Absolute Segs 06/20/2024 16:08:17 3.22 1.80-7.70 (K/uL) Final Lymphs, absolute 06/20/2024 16:08:17 1.63 1.00-4.80 (K/ul) Final Monos, Abs 06/20/2024 16:08:17 0.46 0.00-1.10 (K/uL) Final Eos, Abs 06/20/2024 16:08:17 0.24 0.00-0.70 (K/uL) Final Basos, Abs 06/20/2024 16:08:17 0.20 0.00-0.20 (K/uL) Final Performing Location [facility] [address]
--- OUTSIDE RECORDS SUMMARY | 2024-11-24 08:20 | External Medical Summary ---
Author Name Unknown Address Unknown Organization : Laboratory Report Ordering Provider Test Date Status TONE LAMB 06/20/2024 16:08:17 Final Observation Date Value Abnormality Reference (Units ) Status Beta-2 Microglobulin 06/20/2024 16:08:17 3.03 Above high normal <=2.51 (mg/L) Final
Test Performed at:
[facility]
[address]
[place] [address]
Tawanda Ahuja M.D., Ph.D.,Director of Laboratories Performing Location
--- OUTSIDE RECORDS SUMMARY | 2024-11-24 08:20 | External Medical Summary ---
Author Name Unknown Address Unknown Organization [id number]:[facility] [place] [address] [facility] [address] Laboratory Report Ordering Provider Test Date Status TONE LAMB 06/20/2024 16:08:17 Final Observation Date Value Abnormality Reference (Units) Status PARAPROTEIN NORMAL/ABNORMAL 06/20/2024 16:08:17 Abnormal Abnormal Normal Final Protein 06/20/2024 16:08:17 6.5 6.0-8.3 (g/dL) Final Albumin/Protein.total [Pure mass fraction] in Serum or Plasma by Electrophoresis 06/20/2024 16:08:17 3.61 3.30-4.40 (g/dL) Final Alpha 1 globulin/Protein.total [Pure mass fraction] in Serum or Plasma by Electrophoresis 06/20/2024 16:08:17 0.22 0.10-0.30 (g/dL) Final Alpha 2 globulin/Protein.total [Pure mass fraction] in Serum or Plasma by Electrophoresis 06/20/2024 16:08:17 0.85 0.60-1.00 (g/dL) Final Beta globulin/Protein.total [Pure mass fraction] in Serum or Plasma by Electrophoresis 06/20/2024 16:08:17 0.92 0.80-1.30 (g/dL) Final Gamma globulin/Protein.total [Pure mass fraction] in Serum or Plasma by Electrophoresis 06/20/2024 16:08:17 0.89 0.70-1.70 (g/dL) Final Monoclonal protein 06/20/2024 16:08:17 0.50 (g/dL) Final Protein Fractions [Interpretation] in Serum or Plasma by Electrophoresis Narrative 06/20/2024 16:08:17 Abnormal. A paraprotein is present that has been previously identified as a monoclonal IgG kappa. Final Performing Location [facility] [place] [address] [facility] [address]
--- OUTSIDE RECORDS SUMMARY | 2024-11-24 08:20 | External Medical Summary ---
Author Name Unknown Address Unknown Organization K01:[facility] - [address] [place] [address] Laboratory Report Ordering Provider Test Date Status LAMB,MEMON 06/20/2024 16:08:17 Final Observation Date Value Abnormality Reference (Units ) Status IgG 06/20/2024 16:08:17 9313 [id number] ( mg/dL) Final IgA 06/20/2024 16:08:17 131 70-400 (mg /dL) Final IgM 06/20/2024 16:08:17 25 Below low normal 40- 230 (mg/dL) Final Performing Location [facility] - [address] [place] [address]
--- OUTSIDE RECORDS SUMMARY | 2024-11-24 08:20 | External Medical Summary ---
Author Name Unknown Address Unknown Organization K01[facility] [place] [address] [place] [address] Laboratory Report Ordering Provider Test Date Status LAMBTONE 06/20/2024 16:08:17 Final Observation Date Value Abnormality Reference (Units) Status PARAPROTEIN NORMAL/ABNORMAL 06/20/2024 16:08:17 Abnormal Abnormal Normal Final Immunofixation for Serum or Plasma 06/20/2024 16:08:17 Abnormal, a monoclonal IgG kappa gammopathy is present. Final Performing Location [facility] [place] [address] [place] [address]
--- OUTSIDE RECORDS SUMMARY | 2024-11-24 08:20 | External Medical Summary | Summary of Care ---
Author Name Unknown Organization [facility] Address [address] [place] [address] Phone [phone] Care Team Providers Care Collection Specialist Name Role Phone Yany Coreas MD Primary Care Provider Reason for Visit * Reason Comments Follow Up Encounter Details Date Type Department Care Team (Late st Contact Info) Description 06/26/2024 3:30 PM EDT Office Visit [facility]ematology[facility] [address] [facility] [place] [place] [phone] Jayant Garcia MD [address] [place] [address] MGUS (monoclonal gammopathy of unknown significance)* Allergies No known active allergiesdocumented as of this encounter (statuses as of 06/26/2024) Medications Medication Sig Dispensed Refills Start Date [...] as of this encounter (statuses as of 06/26/2024) Active Problems Problem Noted Date Diagnosed Date Obesity, Class II, BMI 35-39.9, isolated (see ac tual BMI) 04/09/2022 PAT (paroxysmal atrial tachycardia) 01/14/2022 1st degree AV block 01/14/2022 Acquired hypothyroidism 07/01/2020 Malignant neoplasm of prostate 06/05/2001 Cancer Staging:Clinical: Unsigned Dyslipidemia documented as of this encounter (statuses as of 06/26/2024) Resolved Problems Problem Noted Date Diagnosed Date [...] as of this encounter (statuses as of 06/26/2024) Immunizations Name Administration Dates Next Due COVID-19 [...] Sign Reading Time Taken Comments Blood Pressure 123/51 06/26/2024 3:26 PM EDT Pulse 71 06/26/2024 3:26 PM EDT Temperature 37.2 C (98.9 F) 06/26/2024 3:26 PM ED T Respiratory Rate - - Oxygen Saturation 92% 06/26/2024 3:26 PM EDT Inhaled Oxygen Concentration - - Weight 110.7 kg (244 lb) 06/26/2024 3:26 PM EDT Height - - Body Mass Index 37.1 07/09/2023 9:09 AM EDT documented in this encounter Progress Notes * Jayant Garcia MD - 06/26/2024 3:18 PM EDT Outpatient Consult Note Data Source: Patient, Epic record. Data Source: Patient, Epic record. 06/26/2024 3:18 PM Ankit Skip Morgan [id number] 79 year old Patient Encounter: HEMATOLOGY/ONCOLOGY [facility] Diagnosis: Abnormal SPEP, monoclonal IgG kappa gammopathy Current Treatment: Observation Previous Treatment: None History : 79-year-old male with past medical history significant for hypothyroidism, hyperlipidemia, abnormalheart rate and prostate cancer was referred with the about diagnosis. Patient was initially diagnosed of prostate cancer in 1997 and had surgery done at [facility] cancer center. He was treated with surgery. He did well until 2009 when there was a rise inthe PSA level and biochemical failure. He was treated with radiation therapy. Subsequently there was increase in the PSA level again and was treated with Relugolix between 01/2022 - 10/2022. He had blood test done on 05/17/2023 which shows M spike of 0.51 and presence of the paraprotein. 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 IgG and IgA level were normal and IgM was 26. Creatinine was 1.2 and the rest of the electrolytes including calcium and LFTs were within normal limit. WBC count and platelet counts were normal and hemoglobin was 11.3. His history is also significant for hip and back pain. He recently received right hip injection with some improvement in the pain. Patient denies any headache, dizziness, fever, night sweats, weight loss, chest pain, shortness breath palpitation abdominal pain or distention, bleeding, bruising, nausea, vomiting, fever, night sweats, change in the bowel habits, hematuria, hematochezia, new bone pain. He denies smoking. He drinks 2 shots on weekly basis. Family history significant for mother was diagnosed of cervical cancer Interval History: Because of rising PSA and metastatic prostate cancer currently he is taking Xtandi and Relugolix. He is following Dr. Nba De Los Santos at [facility] and he has a follow-up appointment with him on 07/20/2024. Overall clinically he is stable. Continues to issues with the back pain which is overall stable. Denies any fever, night sweats, chest pain, palpitation abdominal pain or distention, nausea, vomiting, fever night sweats. LABS/IMAGING: Results for orders placed or performed in visit on 06/20/24 COMPREHENSIVE METABOLIC PANEL Result Value Ref Range BUN 24 (H) 6 - 20 mg/dL Creatinine 1.2 0.6 - 1.2 mg/dL Estimated Glomerular Filtration Rate 65 >=60 mL/min Sodium 138 135 - 146 mmol/L Potassium 4.9 3.5 - 5.1 mmol/L Chloride 105 98 - 107 mmol/L CO2 22 22 - 32 mmol/L Anion Gap 11 7 - 15 mmol/L Glucose 82 70 - 120 mg/dL Albumin 4.2 3.8 - 5.0 g/dL AST <10 (L) 10 - 50 U/L Alkaline Phosphatase 83 35 - 130 U/L Bilirubin, Total 0.3 <=1.2 mg/dL Calcium 9.7 8.4 - 10.2 mg/dL Protein 6.5 6.0 - 8.3 g/dL ALT 13 10 - 50 U/L IMMUNOGLOBULIN QUANTITATIVE Result Value Ref Range IgG 1,012 700 - 1,600 mg/dL IgA 131 70 - 400 mg/dL IgM 25 (L) 40 - 230 mg/dL SERUM IMMUNOFIXATION Result Value Ref Range Normal/Abnormal Abnormal (A) Normal Immunofixation Interpretation Abnormal, a monoclonal IgG kappa gammopathy is present. SERUM FREE LIGHT CHAINS Result Value Ref Range [place] Free Light Chains, Serum 17.55 3.30 - 19.40 mg/L Lambda Free Light Chains, Serum 13.75 5.71 - 26.30 mg/L [place] Lambda Free Light Chains Ratio 1.28 0.26 - 1.65 SERUM PROTEIN ELECTROPHORESIS REFLEX PROFILE Result Value Ref Range Normal/Abnormal Abnormal (A) Normal Protein 6.5 6.0 - 8.3 g/dL Albumin 3.61 3.30 - 4.40 g/dL Alpha-1 Globulin 0.22 0.10 - 0.30 g/dL Alpha-2 Globulin 0.85 0.60 - 1.00 g/dL Beta-Globulin 0.92 0.80 - 1.30 g/dL Gamma-Globulin 0.89 0.70 - 1.70 g/dL M Seamus 0.50 g/dL Electrophoresis Interpretation Abnormal. A paraprotein is present that has been previously identified as a monoclonal IgG kappa. LIPID PANEL WITH DIRECT LDL IF TG IS HIGH Result Value Ref Range Triglycerides 190 (H) <=174 mg/dL Cholesterol 127 <200 mg/dL HDL Cholesterol 24 (L) >39 mg/dL Non-HDL Cholesterol 103 <=159 mg/dL CBC Result Value Ref Range WBC 5.75 4.00 - 10.80 K/uL RBC 3.67 4.50 - 5.25 M/uL HGB 11.8 (L) 14.0 - 16.8 g/dL HCT 36.4 (L) 40.0 - 48.4 % MCV 99.2 82.0 - 99.5 fL MCH 32.2 27.0 - 34.0 pg MCHC 32.4 32.0 - 36.0 g/dL RDW 13.1 11.5 - 15.5 % PLT 259 140 - 400 K/uL MPV 10.8 6.6 - 11.1 fL DIFFERENTIAL, AUTOMATED Result Value Ref Range WBC 5.75 4.00 - 10.80 K/uL Neutrophils % 56.0 40.0 - 75.0 % Lymphocytes % 28.3 18.0 - 42.0 % Monocytes % 8.0 1.0 - 11.0 % Eosinophils % 4.2 0.0 - 6.0 % Basophils % 3.5 (H) 0.0 - 2.0 % Absolute Neutrophils 3.22 1.80 - 7.70 K/uL Absolute Lymphocytes 1.63 1.00 - 4.80 K/ul Absolute Monocytes 0.46 0.00 - 1.10 K/uL Absolute Eosinophils 0.24 0.00 - 0.70 K/uL Absolute Basophils 0.20 0.00 - 0.20 K/uL DIFFERENTIAL, TECHNOLOGIST REVIEW Result Value Ref Range nRBCs LDL CHOLESTEROL (DIRECT MEASURE) Result Value Ref Range LDL Cholesterol (Direct Measure) 72 <=129 mg/dL The result of all the recent blood tests are in acceptable in stable range with stable M spike and normal immunoglobulin and light chain level. REVIEW OF SYSTEMS: General: No Fever, chills, night sweats, or weight loss. HEENT: No change in visual acuity, blurred or double vision. No epistaxis, facial pain, nasal discharge or change in hearing. Denies dysphagia, no muscosal ulceration, or sores noted. Cardiovascular: No chest pain, SAENZ, or palpitations Respiratory: No shortness of breath, cough, hemoptysis, or pleuritic chest pain Gastrointestinal: No abdominal pain, nausea, vomiting, diarrhea, rectal pain or bleeding Genitourinary: Denies Hematuria or dysuria Musculoskeletal: Complain back pain Psychiatric: No vegetative signs of depression Endocrine: No symptoms of hypothyroidism or hyperglycemia Hematologic: No bleeding or lymph nodes noted As mentioned above, all of the systems were reviewed in full and are unremarkable. Past Medical History: Diagnosis Date DIVERTICULOSIS OF COLON - 03/17 Esophageal stricture 08/01/09 Malignant neoplasm of prostate (HCC) 06/05/2001 [facility] MIXED HYPERLIPIDEMIA - Low HDL Obesity, Class II, BMI 35-39.9, isolated (see actual BMI) 04/09/2022 Other specified gastritis without mention of hemorrhage 08/01/09 Schatzki ring, focal minimal and nonspecific chronic gastric inflammation Current Outpatient Medications Medication Sig Dispense Refill [...] by mouth every evening. 90 Tablet 3 Atorvastatin Calcium 20 MG Oral Tablet (Lipitor) TAKE 1 TABLET BY MOUTH IN THE MORNING 90 Tablet 0 metroNIDAZOLE 0.75 % External Gel (Metrogel) APPLY TO FACE FOR ROSACEA TWICE DAILY 45 g 0 Celecoxib 100 MG Oral Capsule (CeleBREX) Take 1-2 capsules by mouth daily WF and water. Do not combine with other NSAIDs such as diclofenac, ibuprofen or naproxen. 60 Capsule 2 No current facility-administered medications for this visit. Social History Tobacco Use Smoking status: Never Smokeless tobacco: Never Vaping Use Vaping status: Never Used Substance Use Topics Alcohol use: Yes Comment: 2-3 scotch per weekend Drug use: No Review of patient's allergies indicates: No Known Allergies PHYSICAL EXAMINATION: General Appearance: Healthy appearing patient in no acute distress There were no vitals taken for this visit. Vitals reviewed. HEENT: No oral or pharyngeal masses, ulceration or thrush noted, no sinus tenderness. Neck is supple with no thyromegaly or JVD noted. Lymph Nodes: No lymphadenopathy noted in the occipital, pre and post auricular, cervical, supra andinfraclavicular, axillary, epitrochlear, inguinal, and popliteal region. Lungs/Thorax: Clear to auscultation, no accessory muscles of respiration being used. Heart: Regular rate and rhythm, normal S1, S2 Abdomen: Soft, nontender, bowel sounds present, no appreciable hepatosplenomegaly, no palpable masses Extremeties: Good pulses bilaterally, no peripheral edema. ASSESSMENT: 79-year-old male with a past medical history significant for multiple medical problems including depression, arthritis, irregular heart rhythm, prostate cancer referred for the evaluation of of IgG kappa gammopathy. History is also significant for prostate cancer and currently he is followed at [facility] cancer [facility]. Currently he is on Xtandi and Relugolix. Overall clinically he is stable without any new symptoms complain. He continues to have issues withthe back pain. Result of all the recent blood tests are stable in acceptable range with normal light chain and immunoglobulin levels. M spike was 0.51 which is stable. Discussed with the patient about diagnosis reviewed all the available blood test result with them. He will continue [facility] and has follow-up appointment on 07/20/2024. PLAN: As above. He will return clinic for follow-up in 6 months with CBC, CMP and myeloma panel. The patient voiced understanding of all of the above. All questions and concerns were addressed in an apparently satisfactory manner. Jayant Garcia MD (This note was completed using the dictation program Fluency Direct. As such, there may be misspellings, word substitutions, or other variations that should not change the essence of the clinical content of this encounter note. If there is need for further clarification, please direct questions to me.) documented in this encounter Nursing Notes * Tyesha Marc, MED ASSIST - 06/26/2024 3:28 PM EDT Patient identifed by name and birthdate Do you have any concerns about pain management for today's visit? Yes. Patient instructed to discuss pain concerns with provider during the visit today Living Will or Advance Directive for Health Care as noted on the problem list. [facility] is a way you can talk to your provider on line through e-mail. Would you like to sign up? I can activate it for you? ALREADY ACTIVE Filed Vitals: 06/26/24 1526 BP: 123/51 Pulse: 71 Temp: 37.2 C (98.9 F) TempSrc: Tympanic SpO2: 92% Weight: 110.7 kg (244 lb) Patient was instructed to not get up on the exam table/exam chair until directed and assisted by their provider; patient is to remain seated in the chair/ wheelchair/ exam table/ exam chair for fall prevention and safety reasons. Patient is aware to have assistance to step down off exam table/exam chair with personnel. Patient voiced full comprehension of instructions. documented in this encounter Plan of Treatment Upcoming Encounters Date Type Department Care Team (Latest Contact Info) Description 07/30/2024 10:05 AM EDT Hospital Encounter OR [facility], Operating Room [facility] [address] [place] [phone] Bebo Mitchell, [address] [place] [phone] 07/30/2024 10:05 AM EDT - 07/30/2024 10:30 AM EDT Surgery OR [facility], Operating Room [facility] [address] [place] [phone] Bebo Mitchell, [address] [place] [phone] INJECTION SPINE LUMBAR OR SACRAL 08/01/2024 2:30 PM EDT [facility] [address] [place] [id number] 08/01/2024 3:30 PM EDT [facility] [address] [place] [id number] 08/17/2024 10:30 AM EDT [facility] [address] [place] [id number] Tereso Neal PA-C [address] [place] [id number] 12/18/2024 12:00 PM EST Laboratory Laboratory Scenery [facility] [place] [address] [place] [phone] [place], Lab Scenery [address] [facility] [place] [address] 12/25/2024 3:30 PM EDT Office Visit Hematology/Oncolog y [facility] [place] [address] [facility] [place], [place] [phone] Jayant Garcia MD [address] [place], [place] [address] Scheduled Orders Name Type Priority Associated Diagnoses Orde r Schedule CBC WITH WBC DIFFERENTIAL Lab Routine MGUS (monoclonal gammopathy of unknown significance) Expected: 12/31/2024, Expires: 07/26/2025 COMPREHENSIVE METABOLIC PANEL Lab Routine MGUS (monoclonal gammopathy of unknown significance) Expected: 12/31/2024, Expires: 07/26/2025 IMMUNOGLOBULIN QUANTITATIVE Lab Routine MGUS (monoclonal gammopathy of unknown significance) Expected: 12/31/2024, Expires: 07/26/2025 SERUM FREE LIGHT CHAINS Lab Routine MGUS (monoclonal gammopathy of unknown significance) Expected: 12/31/2024, Expires: 07/26/2025 SERUM PROTEIN ELECTROPHORESIS REFLEX PROFILE Lab Routine MGUS (monoclonal gammopathy of unknown significance) Expected: 12/31/2024, Expires: 07/26/2025 [id number], SERUM Lab Routine MGUS (monoclonal gammopathy of unknown significance) Expected: 12/31/2024, Expires: 07/26/2025 KAPPA/LAMBDA LIGHT CHAINS, FREE WITH RATIO, RANDOM URINE Lab Routine MGUS (monoclonal gammopathy of unknown significance) Expected: 12/31/2024, Expires: 07/26/2025 Scheduled Procedures Name Priority Associated Diagnoses Date/Ti me INJECTION SPINE LUMBAR OR SACRAL Lumbar radiculopathy 07/30/2024 10:05 AM EDT COLONOSCOPY FLEXIBLE PROXIMAL DIAGNOSTIC Recall Colon cancer screening Health Maintenance Due Date Last Done Comments Adult Wellness Visit 06/08/2024 06/08/2023 Depression Screening 06/08/2024 06/08/2023 Influenza Vaccine (FLU shot) (#1) 2024 07/09/2023, 08/17/2022, 07/08/2021, Additional history exists TSH 05/07/2025 05/07/2024, 08/0 10/2022, 05/02/2023, Additional history exists DTap/Tdap Vaccines [...] this encounter Medical Devices Implanted Type Area Machinist Set Up Device Identifier Shelf Expiration Date Model / Serial / Lot Lens Intraoc 21.5 - [id number] - [id number] Implanted:Qty: 1 on 10/31/2018 by Sal Ortez MD at OR [facility] Left: Eye [employer] 05/16/2023 [id number] / [id number] / [id number] Lens Intraoc 20.5 - [id number] - [id number] Implanted:Qty: 1 on 11/09/2018 by Sal Ortez MD at OR [facility] Eye [employer] 06/16/2023 [id number] / [id number] / [id number] documented as of this encounter Visit Diagnoses Diagnosis MGUS (monoclonal gammopathy of unknown significance)- Primary Monoclonal paraproteinemia Lumbar radiculopathy Thoracic or lumbosacral neuritis or radiculitis, unspecified documented in this encounter Care Teams Collection Specialist Relationship Specialty Start Date End Date Yany Coreas MD [address] [place] [id number] PCP - General Internal Medicine 07/09/23 documented as of this encounter
--- OUTSIDE RECORDS SUMMARY | 2024-11-24 08:20 | External Medical Summary ---
Author Name Unknown Address Unknown Organization [id number]:LABORATORY [facility] [place] - [address] [facility] [address] Laboratory Report Ordering Provider Test Date Status DRAGAN JIM 06/20/2024 16:08:17 Final Observation Date Value Abnormality Reference (Units ) Status Triglyceride 06/20/2024 16:08:17 190 Above high normal <=174 (mg/dL) Final Triglyceride Reference Range s (mg/dL):
<150 Acceptable
150-174 Borderline high
175-499 High
>=500 Very high Cholesterol 06/20/2024 16:08:17 127 <200 (mg /dL) Final Total Cholesterol Reference Ranges (mg/dL):
<200 Desirable
200-239 Borderline high
>=240 High HDL 06/20/2024 16:08:17 24 Below low normal >39 (mg/dL) Final HDL Cholesterol Reference Ra nges (mg/dL):
>=60 High (Desirable)
<50 Low (Undesirable) For Females
<40 Low (Undesirable) For Males NON-HDL CHOLESTEROL 06/20/2024 16:08:17 103 <=159 (mg/dL) Final Non-HDL Cholesterol Referenc e Range (mg/dL):
<100 Target level for high risk ASCVD patient
<130 Optimal for general population
130-159 Near optimal for general population
160-189 Borderline High
190-219 High
>=220 Very High Performing Location LABORATORY [facility] [place] - [address] [facility] [address]
--- OUTSIDE RECORDS SUMMARY | 2024-11-24 08:20 | External Medical Summary ---
Author Name Unknown Address Unknown Organization [id number]:[facility] [place] [address] [place] [address] Laboratory Report Ordering Provider Test Date Status DIANDRALISBETHTISHA 06/20/2024 16:08:17 Final Observation Date Value Abnormality Reference (Units ) Status LDL, (direct) 06/20/2024 16:08:17 72 <=129 (mg/dL) Final LDL Cholesterol Reference Ra nges (mg/dL):
<70 Target level for high risk ASCVD patient
<100 Optimal for general population
100-129 Near optimal for general population
130-159 Borderline high
160-189 High
>=190 Very high Performing Location LABORATORY [facility] - [address] [place] [address]
--- OUTSIDE RECORDS SUMMARY | 2024-11-24 08:20 | External Medical Summary ---
Author Name Unknown Address Unknown Organization K09:[facility]ATORY [place] [address] Laboratory Report Ordering Provider Test Date Status TONE LAMB 06/20/2024 16:08:17 Final Observation Date Value Abnormality Reference (Units ) Status Nucleated erythrocytes/100 leukocytes [Ratio] in Blood by Automated count 06/20/2024 16:08:17 Final Performing Location LAB[facility]ATORY [place] [address]
--- OUTSIDE RECORDS SUMMARY | 2024-11-24 08:20 | External Medical Summary ---
Author Name Unknown Address Unknown Organization [id number]:LABORATORY [facility] [place] - [facility] [place] [address] Laboratory Report Ordering Provider Test Date Status TONE LAMB 06/20/2024 16:08:17 Final Observation Date Value Abnormality Reference (Units ) Status [place] light chains, Free, Serum 06/20/2024 16:08:17 17.55 3.30-19.40 (mg/L) Final Lambda light chains, free, Serum 06/20/2024 16:08:17 13.75 5.71-26.30 (mg/L) Final KAPPA LAMBDA FLC RATIO 06/20/2024 16:08:17 1.28 0.26-1.65 Final Performing Location LABORATORY [facility] - [facility] [place] [address]
--- OUTSIDE RECORDS SUMMARY | 2024-11-24 08:20 | External Medical Summary | Summary of Care ---
Author Name Unknown Organization [facility] Address [address] [place] [address] Phone [phone] Care Team Providers Care Hospital Internship Name Role Phone Cooper Coreas MD Primary Care Provider Reason for Visit * Reason Onset Date Comments Medication Refill 06/11/2024 Encounter Details Date Type Department Care Team (Late st Contact Info) Description 06/11/2024 Refill Family Practice [facility] [address] [place] [address] Helene Hendrickson, [address] [place] [address] Rosacea Allergies No known active allergiesdocumented as of this encounter (statuses as of 06/13/2024) Medications Medication Sig Dispensed Refills Start Date End Date Status Aspirin 81 MG Tablet Take 1 Tablet by mouth in the morning. Active Furosemide 20 MG Oral Tablet (Lasix) TAKE 1 TABLET BY MOUTH ONCE A DAY NEEDED FOR FLUID ACCUMULATION OR WEIGHT GAIN 90 Tablet 3 12/20/2022 Active Fluticasone Propionate 50 MCG/ACT Nasal Suspension (Flonase)Indication s:Post-nasal drip Use 2 spray(s) in each nostril once daily 48 g 1 05/17/2023 Active [facility] Iron 325 (65 Fe) MG Oral Tablet Take 1 Tablet by mouth daily with breakfast. 07/24/2023 Active Diclofenac Sodium 75 MG Oral Tablet Delayed Release (Voltaren)Indicatio ns:Lumbar radicular pain Take 1 tablet by mouth twice daily as needed for pain 180 Tablet 10/12/2023 Active Magnesium 400 MG Oral Tablet Take by mouth. Active Levothyroxine Sodium 25 MCG Oral Tablet (Levoxyl)Indication s:Acquired hypothyroidism Take 1 Tablet by mouth in the morning. on an empty stomach.. 90 Tablet 3 01/21/2024 Active Lansoprazole 30 MG Oral Capsule Delayed Release (Prevacid)Indicatio ns:Gastroesophageal reflux disease without esophagitis TAKE 1 CAPSULE [...] Active Atorvastatin Calcium 20 MG Oral Tablet (Lipitor)Indication s:Mixed dyslipidemia TAKE 1 TABLET BY MOUTH IN THE MORNING 90 Tablet 05/17/2024 Active metroNIDAZOLE 0.75 % External Gel (Metrogel)Indicatio ns:Rosacea APPLY TO FACE FOR ROSACEA TWICE DAILY 45 g 06/13/2024 Active metroNIDAZOLE 0.75 % External Gel (Metrogel)Indicatio ns:Rosacea APPLY TO FACE FOR ROSACEA TWICE DAILY 45 g 01/31/2023 06/11/20 24 Discontinu ed(Refill) documented as of this encounter (statuses as of 06/13/2024) Active Problems Problem Noted Date Diagnosed Date Obesity, Class II, BMI 35-39.9, isolated (see ac tual BMI) 04/09/2022 PAT (paroxysmal atrial tachycardia) 01/14/2022 1st degree AV block 01/14/2022 Acquired hypothyroidism 07/01/2020 Malignant neoplasm of prostate 06/05/2001 Cancer Staging:Clinical: Unsigned Dyslipidemia documented as of this encounter (statuses as of 06/13/2024) Resolved Problems Problem Noted Date Diagnosed Date [...] as of this encounter (statuses as of 06/13/2024) Immunizations Name Administration Dates Next Due COVID-19 mRNA, LNP-s, No Pre serve, 2-Dose Series ([employer]) 01/13/2021,12/16/2020 Pneumococcal Conjugate Vacc, 13 Valent (Prevnar) 05/22/2015 Pneumococcal Polysaccharide PPV23 (Pneumovax) 07/07/2012,04/07/2012 Season Influenza, Quad, PF, Adjuvanted, 65+ Yrs, IM (FLUAD) 07/01/2020 Seasonal Influenza, PF, 6 M & above, IM , (FluLaval or Fluzone) 08/10/2018,07/30/2017 Seasonal Influenza, Quadriva lent Hd (Fluzone Hd) 07/09/2023,08/17/2022,07/08/2021 Seasonal Influenza, Quadriva lent, No Preserve, IM 07/31/2016,07/22/2015 Seasonal Influenza, Split, I IV3, With Preserve, Inj 07/20/2014,07/07/2013,07/14/2012,06/18,08/14/2010 07/20/2015 Seasonal Influenza, Trivalen t, Adjuvanted, 65+ yrs 08/03/2019 TDAP (age 10 and older)(Boostrix) 04/25/2023, [...] encounter Miscellaneous Notes * Telephone Encounter - Cooper Coreas MD - 06/13/2024 1:12 PM EDT Signed Prescriptions: Disp Refills metroNIDAZOLE 0.75 % External Gel (Metroge*45 g 0 Sig: APPLY TO FACE FOR ROSACEA TWICE DAILYAuthorizing Provider: COOPER COREAS * Telephone Encounter - Aftab Palmer [facility] - 06/13/2024 10:52 AM EDT Pending Prescriptions: Disp Refills metroNIDAZOLE 0.75 % External Gel (Metroge*45 g 0 Sig: APPLY TO FACE FOR ROSACEA TWICE DAILY * Telephone Encounter - Aftab Palmer [facility] - 06/13/2024 10:52 AM EDT Pending Prescriptions: Disp Refills metroNIDAZOLE 0.75 % External Gel (Metroge*45 g 0 Sig: APPLY TO FACE FOR ROSACEA TWICE DAILY 07/27/2023 (in office), 01/14/2020 (telemedicine) Visit date not found If no future appointments scheduled, and last appointment is greater than a year ago, please schedule patient for a follow-up appointment Last date the medication was ordered: 01/31/23 Pharmacy: [facility] [id number] Is this request for a controlled substance?No Urine Drug Screen:No results found for this or any previous visit. Patient Phone Numbers Labs: Lab Results Component Value Date/Time CREAT 1.1 04/20/2024 03:56 PM CREAT 1.03 07/14/2023 12:00 AM CREAT 1.2 07/16/2020 04:20 PM POTASSIUM 4.9 04/20/2024 03:56 PM POTASSIUM 4.5 07/14/2023 12:00 AM POTASSIUM 4.6 07/16/2020 04:20 PM TSH 2.94 05/07/2024 11:24 AM TSH 2.54 08/30/2019 10:08 AM LDL 71 05/02/2023 11:07 AM LDL 75 07/10/2021 04:26 PM LDL UNINTERPRETABLE RESULT 06/21/2019 08:40 AM LDL 79 06/21/2019 08:40 AM ALT 28 04/20/2024 03:56 PM ALT 28 07/16/2020 04:20 PM documented in this encounter Plan of Treatment Upcoming Encounters Date Type Department Care Team (Latest Contact Info) Description 06/20/2024 4:00 PM EDT Laboratory [facility] [address] [address] [phone] [place] [address] 06/26/2024 3:30 PM EDT Office Visit Hematology/Oncolog [facility] [address] [phone] Jayant Garcia MD [address] [facility] [place] [address] 07/30/2024 10:05 AM EDT Hospital Encounter OR [facility], Operating Room [facility] [address] [place] [phone] Bebo Mitchell, DO [address] [place] [phone] 07/30/2024 10:05 AM EDT - 07/30/2024 10:30 AM EDT Surgery OR [facility], Operating Room [facility] [address] [place] [phone] Bebo Mitchell, DO [address] [place] [phone] INJECTION SPINE LUMBAR OR [facility] 08/01/2024 2:30 PM EDT Cardiac Studies Cardiac Studies, [facility] [address] [place] [address] 08/01/2024 3:30 PM EDT Cardiac Studies Cardiac Studies, [facility] [address] [place] [address] 08/17/2024 10:30 AM EDT Office Visit Cardiology, [facility] [address] [place] [address] Tereso Neal PATreverC [address] [place] [address] Scheduled Procedures Name Priority Associated Diagnoses Date/Ti [...] this encounter Medical Devices Implanted Type Area Electric Motor Assembler And Tester Device Identifier Shelf Expiration Date Model / Serial / Lot Lens Intraoc 21.5 - [id number] - [id number] Implanted:Qty: 1 on 10/31/2018 by Sal Ortez MD at OR [facility] Left: Eye [employer] 05/16/2023 [id number] / [id number] / [id number] Lens Intraoc 20.5 - [id number] - [id number] Implanted:Qty: 1 on 11/09/2018 by Sal Ortez MD at OR [facility] Eye [employer] 06/16/2023 [id number] / [id number] / [id number] documented as of this encounter Visit Diagnoses Diagnosis Rosacea Lumbar radiculopathy Thoracic or lumbosacral neuritis or radiculitis, unspecified documented in this encounter Care Teams Hospital Internship Relationship Specialty Start Date End Date Cooper Coreas MD [address] [facility] [place] [address] PCP - General Internal Medicine 07/09/23 documented as of this encounter
--- OUTSIDE RECORDS SUMMARY | 2024-11-24 08:20 | External Medical Summary ---
Author Name Unknown Address Unknown Organization [id number]:[facility] [place] [address] Laboratory Report Ordering Provider Test Date Status TONE LAMB 06/20/2024 16:08:17 Final Observation Date Value Abnormality Reference (Units ) Status WBC, Total 06/20/2024 16:08:17 5.75 4.00-10.8 0 (K/uL) Final RBC 06/20/2024 16:08:17 3.67 4.50-5.25 (M/uL) Final Hemoglobin 06/20/2024 16:08:17 11.8 Below low normal 14 .0-16.8 (g/dL) Final HCT 06/20/2024 16:08:17 36.4 Below low normal 40. 0-48.4 (%) Final MCV 06/20/2024 16:08:17 99.2 82.0-99.5 (fL) Final MCH 06/20/2024 16:08:17 32.2 27.0-34.0 (pg) Final MCHC 06/20/2024 16:08:17 32.4 32.0-36.0 (g/dL) Final RDW 06/20/2024 16:08:17 13.1 11.5-15.5 (%) Final Platelets 06/20/2024 16:08:17 259 140-400 (K /uL) Final MPV 06/20/2024 16:08:17 10.8 6.6-11.1 ( fL) Final Performing Location [facility] [place] [address]
--- OUTSIDE RECORDS SUMMARY | 2024-11-24 08:20 | External Medical Summary ---
Author Name Unknown Address Unknown Organization K01:[facility] - [address] [place] [address] Laboratory Report Ordering Provider Test Date Status TONE LAMB 06/20/2024 16:08:17 Final Observation Date Value Abnormality Reference (Units ) Status BUN 06/20/2024 16:08:17 24 Above high normal 6-20 (mg/dL) Final Creatinine 06/20/2024 16:08:17 1.2 0.6-1.2 (mg/dL) Final Glomerular filtration rate/1.73 sq M.predicted [Volume Rate/Area] in Serum, Plasma or Blood by Creatinine-based formula (CKD-EPI) 06/20/2024 16:08:17 65 >=60 (mL/min) Final eGFR is calculated based on the CKD-EPI 2020 equation. Sodium 06/20/2024 16:08:17 138 135-146 (m mol/L) Final Potassium 06/20/2024 16:08:17 4.9 3.5-5.1 (m mol/L) Final Cl 06/20/2024 16:08:17 105 98-107 (mm ol/L) Final CO2 06/20/2024 16:08:17 22 22-32 (mmo l/L) Final Anion gap 06/20/2024 16:08:17 11 7-15 (mmol /L) Final Glucose 06/20/2024 16:08:17 82 70-120 (mg /dL) Final Albumin 06/20/2024 16:08:17 4.2 3.8-5.0 (g /dL) Final AST (Aspartate aminotransferase) 06/20/2024 16:08:17 <10 Below low normal 10-50 (U/L) Final Alk Phos 06/20/2024 16:08:17 83 35-130 (U/ L) Final Bilirubin, Total 06/20/2024 16:08:17 0.3 <=1 .2 (mg/dL) Final Calcium 06/20/2024 16:08:17 9.7 8.4-10.2 ( mg/dL) Final Protein 06/20/2024 16:08:17 6.5 6.0-8.3 (g /dL) Final ALT (Alanine aminotransferase) 06/20/2024 16:08:17 13 10-50 (U/L) Jose chaparro Performing Location [facility] - [address] [facility] [address]
--- OUTSIDE RECORDS SUMMARY | 2024-11-24 08:20 | External Medical Summary | Summary of Care ---
Author Name Unknown Organization [facility] Address [address] [place] [address] Phone [phone] Care Team Providers Care Low Heel Builder Name Role Phone Yany Coreas MD Primary Care Provider Reason for Visit * Reason Comments Outpatient Testing Encounter Details Date Type Department Care Team (Late st Contact Info) Description 06/20/2024 4:00 PM EDT Laboratory Laboratory [facility] [address] [place] [phone] [place], [facility] [address] [place] [address] MGUS (monoclonal gammopathy of unknown significance); MIXED HYPERLIPIDEMIA - Low HDL Allergies No known active allergiesdocumented as of this encounter (statuses as of 06/20/2024) Medications Medication Sig Dispensed Refills Start Date [...] Sodium 75 MG Oral Tablet Delayed Release (Voltaren)Indication s:Lumbar radicular pain Take 1 tablet by mouth [...] ROSACEA TWICE DAILY 45 g 06/13/2024 Active documented as of this encounter (statuses as of 06/20/2024) Active Problems Problem Noted Date Diagnosed Date Obesity, Class II, BMI 35-39.9, isolated (see ac tual BMI) 04/09/2022 PAT (paroxysmal atrial tachycardia) 01/14/2022 1st degree AV block 01/14/2022 Acquired hypothyroidism 07/01/2020 Malignant neoplasm of prostate 06/05/2001 Cancer Staging:Clinical: Unsigned Dyslipidemia documented as of this encounter (statuses as of 06/20/2024) Resolved Problems Problem Noted Date Diagnosed Date [...] as of this encounter (statuses as of 06/20/2024) Immunizations Name Administration Dates Next Due COVID-19 mRNA, LNP-s, No Pre serve, 2-Dose Series ([employer]) 01/13/2021,12/16/2020 Pneumococcal Conjugate Vacc, 13 Valent (Prevnar) [...] on file documented as of this encounter Plan of Treatment Upcoming Encounters Date Type Department Care Team (Latest Contact Info) Description 06/26/2024 3:30 PM EDT Office Visit Hematology/Oncology [facility] [place] [address] [place] [phone] Jayant Garcia MD [address] [facility] [place] [address] 07/30/2024 10:05 AM EDT Hospital Encounter OR [facility], Operating Room [facility] [address] [place] [phone] Bebo Mitchell, DO [address] [place] [phone] 07/30/2024 10:05 AM EDT - 07/30/2024 10:30 AM EDT Surgery OR [facility], Operating Room [facility] [address] [place] [phone] Bebo Mitchell, DO [address] [place] [address] INJECTION SPINE LUMBAR OR [facility] 08/01/2024 2:30 PM EDT Cardiac Studies Cardiac Studies, [facility] [address] [place] [address] 08/01/2024 3:30 PM EDT Cardiac Studies Cardiac Studies, [facility] [address] [place] [address] 08/17/2024 10:30 AM EDT Office Visit Cardiology, [facility] [address] [place] [address] Tereso Neal PACristofer [address] [place] [address] Pending Results Name Type Priority Associated Diagnoses Date /Time [id number], SERUM Lab Routine MGUS (monoclonal gammopathy of unknown significance) 06/20/2024 4:08 PM EDT CBC WITH WBC DIFFERENTIAL Lab Routine MGUS (monoclonal gammopathy of unknown significance) 06/20/2024 4:08 PM EDT COMPREHENSIVE METABOLIC PANEL Lab Routine MGUS (monoclonal gammopathy of unknown significance) 06/20/2024 4:08 PM EDT IMMUNOGLOBULIN QUANTITATIVE Lab Routine MGUS (monoclonal gammopathy of unknown significance) 06/20/2024 4:08 PM EDT SERUM IMMUNOFIXATION Lab Routine MGUS (monoclonal gammopathy of unknown significance) 06/20/2024 4:08 PM EDT SERUM FREE LIGHT CHAINS Lab Routine MGUS (monoclonal gammopathy of unknown significance) 06/20/2024 4:08 PM EDT SERUM PROTEIN ELECTROPHORESIS REFLEX PROFILE Lab Routine MGUS (monoclonal gammopathy of unknown significance) 06/20/2024 4:08 PM EDT LIPID PANEL WITH DIRECT LDL IF TG IS HIGH Lab Routine MIXED HYPERLIPIDEMIA - Low HDL 06/20/2024 4:08 PM EDT CBC Lab Routine MGUS (monoclonal gammopathy of unknown significance) 06/20/2024 4:08 PM EDT DIFFERENTIAL, AUTOMATED Lab Routine MGUS (monoclonal gammopathy of unknown significance) 06/20/2024 4:08 PM EDT Scheduled Procedures Name Priority Associated Diagnoses Date/Ti [...] this encounter Medical Devices Implanted Type Area Ultimate Hoops Scoreboard Operator Device Identifier Shelf Expiration Date Model / Serial / Lot Lens Intraoc 21.5 - [id number] - [id number] Implanted:Qty: 1 on 10/31/2018 by Sal Ortez MD at OR [facility] Left: Eye [employer] 05/16/2023 [id number] / [id number] / [id number] Lens Intraoc 20.5 - [id number] - [id number] Implanted:Qty: 1 on 11/09/2018 by Sal Ortez MD at OR [facility] Eye [employer] 06/16/2023 [id number] / [id number] / [id number] documented as of this encounter Visit Diagnoses Diagnosis MGUS (monoclonal gammopathy of unknown significance) Monoclonal paraproteinemia MIXED HYPERLIPIDEMIA - Low HDL Mixed hyperlipidemia Lumbar radiculopathy Thoracic or lumbosacral neuritis or radiculitis, unspecified documented in this encounter Care Teams Low Heel Builder Relationship Specialty Start Date End Date Yany Coreas MD [address] [place] [address] PCP - General Internal Medicine 07/09/23 documented as of this encounter
--- NOTE | 2024-11-24 09:38 | Emergency Department Note ---
Impression & Plan AMS (altered mental status), COVID-19, Delirium ED Provider Note NAME: MALINI MENDIOLA AGE: 79 SEX: M : 1945 ARRIVES VIA: Ambulance INFORMANT: Patient, ED PROVIDER(S): Eric Trejo MD CHIEF COMPLAINT: Altered mental status HPI: This is a 79-year-old male with history of dementia presented for altered mental status. Patient with family who states that he is somewhat off of his baseline. Nonmember and concerned things, not answering questions. Patient not giving any details at this time. and son provide history. she says she has been sick with a flu like illness. He has not had any B symptoms but has reported being confused. He is weak, tired he currently reports pain but does not explain where. ROS: See above HPI for pertinent positives & negatives. A total of 10 systems reviewed and were otherwise negative. PAST MEDICAL HISTORY: See Below PAST SURGICAL HISTORY: See Below FAMILY HISTORY: See Below SOCIAL HISTORY: See Below HOME MEDICATIONS: See Below ALLERGIES: See Below VITALS: See Below PHYSICAL EXAMINATION: General: resting comfortably in no acute distress Head: Normocephalic and atraumatic Eyes: Normal inspection, extraocular muscles intact Ear, nose, throat: Normal external exam Neck: Normal range of motion Respiratory: lungs clear to auscultation bilaterally Cardiovascular: Regular rate/rhythm, no murmur GI: soft, nontender, no guarding or rebound Extremities: nontender, moves all extremities Neuro: Alert, awake, not oriented appropriately conversive, no focal deficits, symmetric faces Skin: Warm, dry, and intact MEDICAL DECISION MAKING: This is a 79-year-old male presenting for altered mental status. Will do urinalysis, basic blood work, chest x-ray, upper respiratory panel. No focal neurologic deficits to suggest stroke at this time. -Bloodwork is reviewed showing no significant leukocytosis, anemia, electrolyte or creatinine abnormality -CT of the chest reveals bibasilar atelectasis and cardiomegaly -Patient is positive for COVID-19 -Overall patient feels well, vital signs with borderline fever here. Did discuss option of a family including discharge with close observation versus admission. -Family would like admission as they do not feel he is safe to be discharged home as it is only his and she cannot take care of him currently. -Care discussed with hospitalist service for admission Differential diagnosis: Stroke, upper respiratory infection, pneumonia, dehydration, meningitis Independent History obtained from: and son Diagnostics interpreted by me: ECG: ECG independently interpreted by me with normal sinus rhythm, rate of 94, normal axis, normal FL, normal QRS, normal QTc, no ST segment elevations consistent with STEMI criteria Cardiac Monitoring: An order was placed for continuous cardiac monitoring. The monitor shows a rate of 89 with sinus rhythm. Past Med/Surg History Problem List (Updated 11/24/24 @ 15:48 by Eric Trejo MD) Delirium (Acute) COVID-19 (Acute) AMS (altered mental status) (Acute) Lumbar spondylosis Arthritis of right hip Lumbar disc herniation with radiculopathy (Acute) Lumbar disc herniation (Chronic) Constipation (Acute) Hyperlipidemia (Chronic) GERD (gastroesophageal reflux disease) (Chronic) Diaphoresis (Acute) Abdominal pain (Acute) Surgical History (Updated 05/05/23 @ 13:30 by Shari Boyd RN) Hx of colonoscopy History of prostate surgery 1998 No pertinent past surgical history Family History (Updated 05/05/23 @ 13:28 by Shari Boyd RN) Mother Cancer Father Heart disease Social History (Updated 05/05/23 @ 13:29 by Shari Boyd RN) Smoking Status: Never smoker Hx Alcohol Use: Yes Alcohol type: beer and hard liquor Alcohol Intake Frequency: 2-3 x/Week Hx Substance Use: No Preferred Language: Maori Communication Ability: Effective It Systems Engineer Required: No Beliefs That Will Affect Care: None marital status: Current Living Situation: Spouse current occupational status: employed 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 How many Children do You have: 2 Feels Safe at Home: Yes Diet: regular during the past year weight has: remained stable Assistive Devices: None Allergies Allergies Allergy/AdvReac Type Severity Reaction Status Date / Time No Known Allergies Allergy Unknown Verified 11/24/24 11:12 Home Meds Home Medications Medication Instructions Recorded Confirmed aspirin 81 mg tablet,delayed 81 mg PO DAILY 05/05/23 11/24/24 release amlodipine 2.5 mg tablet 2.5 mg PO QPM 11/24/24 11/24/24 atorvastatin 20 mg tablet 20 mg PO HS 11/24/24 11/24/24 enzalutamide 40 mg tablet (Xtandi) 0 mg PO HS 11/24/24 11/24/24 lansoprazole 30 mg capsule,delayed 30 mg PO DAILYBB 11/24/24 11/24/24 release levothyroxine 25 mcg tablet 25 mcg PO DAILYBB 11/24/24 11/24/24 metoprolol succinate 50 mg 75 mg PO QAM 11/24/24 11/24/24 tablet,extended release 24 hr relugolix 120 mg tablet (Orgovyx) 120 mg PO DAILY 11/24/24 11/24/24 Results & Data (ED) Vital Signs Vital Signs - 24 hr 11/24/24 08:35 11/24/24 08:59 11/24/24 10:06 Temperature 37.3 C Temperature Source Oral Pulse Rate 92 H 89 82 Respiratory Rate 16 20 Respiratory Effort / Characteristics Non-Labored Spontaneous Respiratory Depth Normal Blood Pressure 154/95 H 156/73 H Blood Pressure Mean 114 100 Blood Pressure Position Sitting Pulse Oximetry 92 94 Oxygen Delivery Method Room Air Room Air Sepsis Recent Fever Within 48 Hours No Sepsis New/Unexplained Change in Mental Status N/A Sepsis Action Taken by Nursing No Action Required 11/24/24 10:30 11/24/24 11:00 11/24/24 11:30 Temperature Temperature Source Pulse Rate 82 87 86 Respiratory Rate 20 18 20 Respiratory Effort / Characteristics Respiratory Depth Blood Pressure 168/79 H 152/70 H 159/69 H Blood Pressure Mean 124 106 83 Blood Pressure Position Pulse Oximetry 95 95 95 Oxygen Delivery Method Room Air Room Air Room Air Sepsis Recent Fever Within 48 Hours Sepsis New/Unexplained Change in Mental Status Sepsis Action Taken by Nursing 11/24/24 12:00 Temperature Temperature Source Pulse Rate 84 Respiratory Rate 20 Respiratory Effort / Characteristics Respiratory Depth Blood Pressure 149/71 H Blood Pressure Mean 96 Blood Pressure Position Pulse Oximetry 94 Oxygen Delivery Method Room Air Sepsis Recent Fever Within 48 Hours Sepsis New/Unexplained Change in Mental Status Sepsis Action Taken by Nursing Laboratory Data 11/24/24 09:05 11/24/24 09:05 Lab Results 11/24/24 11/24/24 Range/Units 09:00 09:05 WBC 7.58 (4.8-10.8) K/ul RBC 3.80 L (4.70-6.10) M/uL Hgb 12.4 L (14.0-18.0) g/dl Hct 36.2 L (42.0-52.0) % MCV 95.3 (80.0-100.0) fL MCH 32.6 (25.0-34.0) pg MCHC 34.3 (32.0-36.0) g/dL RDW Std Deviation 42.5 (36.4-46.3) fL RDW Coeff of Ozzie 12.2 (11.5-14.5) % Plt Count 215 (130-400) K/uL MPV 10.5 (9.4-12.4) fL Immature Gran % (Auto) 0.5 % Neut % (Auto) 82.3 % Lymph % (Auto) 8.3 % [place] % (Auto) 7.5 % Eos % (Auto) 0.9 % Baso % (Auto) 0.5 % Neut # (Auto) 6.23 (1.40-6.50) K/uL Lymph # (Auto) 0.63 L (1.20-3.40) K/uL [place] # (Auto) 0.57 (0.11-0.59) K/uL Eos # (Auto) 0.07 (0.00-0.50) K/uL Baso # (Auto) 0.04 (0.00-0.20) K/uL Immature Gran # (Auto) 0.04 (0.01-0.20) K/uL Sodium 138 (136-145) mmol/L Potassium 4.0 (3.5-5.1) mmol/L Chloride 105 (98-107) mmol/L Carbon Dioxide 26 (21-32) mmol/L Anion Gap 7 (3-11) BUN 19 (6-23) mg/dl Creatinine 0.99 (0.6-1.4) mg/dl Est Cr Clr Drug Dosing 80.3 ml/min eGFR 77.97 BUN/Creatinine Ratio 19.2 (10-20) Glucose 109 H (70-99(Fasting)) mg/dl Lactate 1.0 (0.4-2.0) mmol/L Calcium 9.7 (8.6-10.3) mg/dl Total Bilirubin 0.9 (0.2-1.0) mg/dl AST 9 L (13-39) U/L ALT 7 (7-52) U/L Alkaline Phosphatase 62 (34-104) U/L Troponin I High Sens 9.3 (0-20) pg/ml Total Protein 7.1 (6.0-8.3) gm/dl Albumin 4.1 (3.4-5.0) gm/dl Globulin 3.0 (2.5-4.0) gm/dl Albumin/Globulin Ratio 1.4 (0.9-2) TSH 1.421 (0.300-4.500) uIu/ml Adenovirus (PCR) Not Detected (NotDetected) B. pertussis DNA (PCR) Not Detected (NotDetected) B.parapertussis DNA PCR Not Detected (NotDetected) C. pneumoniae DNA (PCR) Not Detected (NotDetected) Coronavirus OC43 (PCR) Not Detected (NotDetected) Coronavirus HKU1 (PCR) Not Detected (NotDetected) Coronavirus 229E (PCR) Not Detected (NotDetected) SARS-CoV-2 (PCR) DETECTED A (NotDetected) Coronavirus NL63 (PCR) Not Detected (NotDetected) Human Metapneumovir PCR Not Detected (NotDetected) Influenza Type A (PCR) Not Detected (NotDetected) Influenza Type B (PCR) Not Detected (NotDetected) M. pneumoniae (PCR) Not Detected (NotDetected) Parainfluenza 1 (PCR) Not Detected (NotDetected) Parainfluenza 2 (PCR) Not Detected (NotDetected) Parainfluenza 3 (PCR) Not Detected (NotDetected) Parainfluenza 4 (PCR) Not Detected (NotDetected) RSV (PCR) Not Detected (NotDetected) Entero/Rhino (PCR) Not Detected (NotDetected) Administered Medications Sodium Chloride (Nss) 1,000 mls @ 80 mls/hr IV .[id number] Stop: 11/25/24 12:44 Last Admin: 11/24/24 12:59 Dose: 80 mls/hr Documented By: MMN Discontinued Medications Remdesivir 200 mg/ Sodium (Chloride) 250 mls @ 125 mls/hr IV ONE STA Stop: 11/24/24 14:36 Last Admin: 11/24/24 14:22 Dose: 125 mls/hr Documented By: [facility] Imaging Data Radiologist's Impression: Chest X-Ray 11/24/24 08:45 XR chest 1V portable HISTORY: 79 years-old Male weakness COMPARISON: 12/10/2013 TECHNIQUE: AP view of the chest FINDINGS: Hypoinflation. Moderate cardiomegaly. Pulmonary vascular congestion with interstitial coarsening. No pneumothorax or large pleural effusion. Cholecystectomy. Mild bibasilar densities. Bones appear grossly intact. IMPRESSION: 1. Cardiomegaly with pulmonary vascular congestion. 2. Mild bibasilar atelectasis. ACT 112: Negative or not required by law. The above report was generated using voice recognition software. It may contain grammatical, syntax or spelling errors. Electronically signed by: Lexx Mack M.D. 11/24/2024 9:40 AM Discharge Plan Visit Data Chief Complaint: Altered Mental Status ED Provider: Eric Trejo Discharge Problem: AMS (altered mental status), COVID-19, Delirium Patient Disposition: Admitted As Inpatient Discharge Instructions Interventions: ED Discharge Assessment Last Done: 11/24/24 13:20
[2024-11-24 09:42] LABS: Albumin Globulin Ratio 1.4 (0.9-2); Albumin Level 4.1 gm/dl (3.4-5.0); BUN Creatinine Ratio 19.2 (10-20); Bilirubin,Total 0.9 mg/dl (0.2-1.0); Calcium 9.7 mg/dl (8.6-10.3); Creatinine Clr Calc Pharmacy 80.3 ml/min; Total Protein 7.1 gm/dl (6.0-8.3)
--- NOTE | 2024-11-24 09:42 | XRay Report ---
XR chest 1V portable HISTORY: 79 years-old Male weakness COMPARISON: 12/10/2013 TECHNIQUE: AP view of the chest FINDINGS: Hypoinflation. Moderate cardiomegaly. Pulmonary vascular congestion with interstitial coarsening. No pneumothorax or large pleural effusion. Cholecystectomy. Mild bibasilar densities. Bones appear gross ly intact. IMPRESSION: 1. Cardiomegaly with pulmonary vascular congestion. 2. Mild bibasilar atelectasis. ACT 112: Negative or not required by law. The above report was generated using voice recognition software. It may contain grammatical, syntax o r spelling errors. Electronically signed by: Lexx Mack M.D. 11/24/2024 9:40 AM
[2024-11-24 09:44] LABS: Basophils # (auto) 0.04 K/uL (0.00-0.20); Basophils % (auto) 0.5 %; Eosinophils # (auto) 0.07 K/uL (0.00-0.50); Eosinophils % (auto) 0.9 %; Hematocrit (blood only) 36.2 % (42.0-52.0); Hemoglobin 12.4 g/dl (14.0-18.0); Immature Granulocytes # (auto) 0.04 K/uL (0.01-0.20); Immature Granulocytes % (auto) 0.5 %; Lymphocytes # (auto) 0.63 K/uL (1.20-3.40); Lymphocytes % (auto) 8.3 %; Mean Corpuscular Hemoglobin 32.6 pg (25.0-34.0); Mean Corpuscular Hgb Conc 34.3 g/dL (32.0-36.0); Mean Corpuscular Volume 95.3 fL (80.0-100.0); Mean Platelet Volume 10.5 fL (9.4-12.4); Monocytes # (auto) 0.57 K/uL (0.11-0.59); Monocytes % (auto) 7.5 %; Neutrophils # (auto) 6.23 K/uL (1.40-6.50); Neutrophils % (auto) 82.3 %; Platelet Count 215 K/uL (130-400); RDW Coefficient of Variation 12.2 % (11.5-14.5); RDW Standard Deviation 42.5 fL (36.4-46.3); White Blood Count 7.58 K/ul (4.8-10.8)
[2024-11-24 09:48] LABS: Troponin I High Sensitivity 9.3 pg/ml (0-20)
[2024-11-24 09:57] LABS: Thyroid Stimulating Hormone 1.421 uIu/ml (0.300-4.500)
[2024-11-24 10:17] LABS: Adenovirus PCR Not Detected (NotDetected); Bordetella parapertussis PCR Not Detected (NotDetected); Bordetella pertussis PCR Not Detected (NotDetected); Chlamydia pneumoniae PCR Not Detected (NotDetected); Coronavirus 229E PCR Not Detected (NotDetected); Coronavirus CoV-2 (COVID19)PCR DETECTED (NotDetected); Coronavirus HKU1 PCR Not Detected (NotDetected); Coronavirus NL63 PCR Not Detected (NotDetected); Coronavirus OC43PCR Not Detected (NotDetected); Human Metapneumovirus PCR Not Detected (NotDetected); Influenza A PCR Not Detected (NotDetected); Influenza B PCR Not Detected (NotDetected); Mycoplasma pneumoniae PCR Not Detected (NotDetected); Parainfluenza Virus 1 PCR Not Detected (NotDetected); Parainfluenza Virus 2 PCR Not Detected (NotDetected); Parainfluenza Virus 3 PCR Not Detected (NotDetected); Parainfluenza Virus 4 PCR Not Detected (NotDetected); Respiratory Syncytial VirusPCR Not Detected (NotDetected); Rhinovirus/Enterovirus PCR Not Detected (NotDetected)
--- NOTE | 2024-11-24 12:24 | History & Physical Report ---
Date of Service November 24, 2024 Assessment & Plan (1) AMS (altered mental status): Plan #AMS likely 2/2 COVID without pneumonia -UA, Bcx, CT of the head to r/o alternative etiologies -patient's family would prefer remdesivir if available -no wheezes, not hypoxic, will not order steroids or duonebs, consider if worsening -supportive measures otherwise, fluids, risk factor mitigation -consider PT/OT before dc, patient's will be unable to take care of him in an incapacitated state #Cardiomegaly w/pulmonary vascular congestion noted on CXR #LE edema -echo #Macrocytic anemia, likely chronic, present on previous labs -monitor #Htn, HLD, prostate ca on multiple oral medications, tachycardia, gerd, hypothyroidism -home meds Gentle hydration NPO until mental status improves SCDs until CT scan returns History of Present Illness Primary Care Provider: Yany Coreas MD 79M pmh htn, HLD, prostate ca on multiple oral medications, tachycardia, gerd, hypothyroidism who presents to the ED altered. On my evaluation patient is AAOx0, and son are at bedside and provide history. states on she developed a "head cold", and on Sat AM the patient awoke and was confused. Patient did not complain of any sinus or respiratory compromise before Tuesday. No history of confusion or AMS in the past. No current respiratory complaints per the , though difficult to verify with the patient. Allergies Allergy/AdvReac Type Severity Reaction Status Date / Time No Known Allergies Allergy Unknown Verified 11/24/24 11:12 Home Medications Medication Instructions Recorded Confirmed Type aspirin 81 mg tablet,delayed 81 mg PO DAILY 05/05/23 11/24/24 History release amlodipine 2.5 mg tablet 2.5 mg PO QPM 11/24/24 11/24/24 History atorvastatin 20 mg tablet 20 mg PO HS 11/24/24 11/24/24 History enzalutamide 40 mg tablet (Xtandi) 0 mg PO HS 11/24/24 11/24/24 History lansoprazole 30 mg capsule,delayed 30 mg PO DAILYBB 11/24/24 11/24/24 History release levothyroxine 25 mcg tablet 25 mcg PO DAILYBB 11/24/24 11/24/24 History metoprolol succinate 50 mg 75 mg PO QAM 11/24/24 11/24/24 History tablet,extended release 24 hr relugolix 120 mg tablet (Orgovyx) 120 mg PO DAILY 11/24/24 11/24/24 History Past Med/Surg History Problem List (Updated 11/24/24 @ 12:29 by Parag Morfin MD) AMS (altered mental status) Lumbar spondylosis Arthritis of right hip Lumbar disc herniation with radiculopathy (Acute) Lumbar disc herniation (Chronic) Constipation (Acute) Hyperlipidemia (Chronic) GERD (gastroesophageal reflux disease) (Chronic) Diaphoresis (Acute) Abdominal pain (Acute) Surgical History (Updated 05/05/23 @ 13:30 by Shari Boyd RN) Hx of colonoscopy History of prostate surgery 1998 No pertinent past surgical history Family History (Updated 05/05/23 @ 13:28 by Shari Boyd RN) Mother Cancer Father Heart disease Social History (Updated 05/05/23 @ 13:29 by Shari Boyd RN) Smoking Status: Unknown if ever smoked Hx Alcohol Use: Yes Alcohol type: hard liquor Alcohol Intake Frequency: 2-3 x/Week Preferred Language: Sri [place]ankan marital status: current occupational status: employed 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 How many Children do You have: 2 Feels Safe at Home: Yes Diet: regular during the past year weight has: remained stable Review of Systems Review of Systems: Unobtainable due to cognitive status Physical Exam Constitutional: WD/WN, vitals as above Respiratory: normal respiratory effort, lungs clear to auscultation Cardiovascular: Extremities: + edema (+1) Psychiatric: Orientation: + not oriented x 3 Results & Data Results & Data Vital Signs (Past 12 Hours) Vital Signs Temp Pulse Resp BP Pulse Ox O2 Del Method 11/24/24 12:00 84 20 149/71 H 94 Room Air 11/24/24 11:30 86 20 159/69 H 95 Room Air 11/24/24 11:00 87 18 152/70 H 95 Room Air 11/24/24 10:30 82 20 168/79 H 95 Room Air 11/24/24 10:06 82 20 156/73 H 94 Room Air 11/24/24 08:59 89 11/24/24 08:35 37.3 C 92 H 16 154/95 H 92 Room Air Laboratory Results Abnormal lab results 11/24/24 11/24/24 Range/Units 09:00 09:05 RBC 3.80 L (4.70-6.10) M/uL Hgb 12.4 L (14.0-18.0) g/dl Hct 36.2 L (42.0-52.0) % Lymph # (Auto) 0.63 L (1.20-3.40) K/uL Glucose 109 H (70-99(Fasting)) mg/dl AST 9 L (13-39) U/L SARS-CoV-2 (PCR) DETECTED A (NotDetected) Diagnostic Findings Chest X-Ray 11/24/24 08:45 XR chest 1V portable HISTORY: 79 years-old Male weakness COMPARISON: 12/10/2013 TECHNIQUE: AP view of the chest FINDINGS: Hypoinflation. Moderate cardiomegaly. Pulmonary vascular congestion with interstitial coarsening. No pneumothorax or large pleural effusion. Cholecystectomy. Mild bibasilar densities. Bones appear grossly intact. IMPRESSION: 1. Cardiomegaly with pulmonary vascular congestion. 2. Mild bibasilar atelectasis. ACT 112: Negative or not required by law. The above report was generated using voice recognition software. It may contain grammatical, syntax or spelling errors. Electronically signed by: Lexx Mack M.D. 11/24/2024 9:40 AM Code Status & VTE Plan VTE Prophylaxis Plan VTE Prophylaxis will be ordered: Yes
[2024-11-24] MEDS: SODIUM CHLORIDE 0.9% 1,000 ML IV SCH (12:59)
--- NOTE | 2024-11-24 14:11 | CT Scan Report ---
EXAM: CT Head Without Intravenous Contrast INDICATION: Evaluate for stroke. TECHNIQUE: Axial computed tomography images of the head/brain without intravenous contrast. Sagittal and/or coronal reformats are provided. Sagittal and coronal reformatted images were created and reviewed. This CT exam was performed using one or more of the following dose reduction techniques: automated exposure control, adjustment of the mA and/or kV according to patient size, and/or use of iterative reconstruction technique. COMPARISON: 04/25/2023 FINDINGS: Limitations: None. Brain and extra-axial spaces: There is age appropriate cortical atrophy and chronic ischemic periventricular white matter hypodensity. No acute infarct, hemorrhage or mass noted. Bones/joints: No acute changes. Soft tissues: No significant abnormality noted. Vasculature: No acute abnormality noted. Sinuses: Small air-fluid level and thickening left maxillary and ethmoid sinuses. Mastoid air cells: No mastoid effusion. Orbits: No significant abnormality noted. IMPRESSION: 1. Cerebral atrophy. No acute changes. 2. Mild acute on chronic left maxillary and ethmoid sinusitis. ACT 112: Negative or not required by law. Electronically signed by Candice Olivo 11-24-2024 2:10 PM
[2024-11-24] MEDS: REMDESIVIR 200 MG in SODIUM CHLORIDE 0.9% 210 ML IV STA (14:22)
[2024-11-24] MEDS: ACETAMINOPHEN 325 MG TAB PO PRN (16:06)
[2024-11-24 19:49] LABS: Appearance Urine Clear (Clear); Bilirubin Urine Negative (Negative); Blood Urine Negative (Negative); Color Urine Yellow; Glucose Urine UA Negative (Negative); Ketones Urine Negative (Negative); Leukocyte Esterase Urine Negative (Negative); Nitrite Urine Negative (Negative); Protein Urine Negative (Negative); Specific Gravity Urine 1.009 (1.000-1.030); Urobilinogen Urine Negative (Negative)
[2024-11-24] MEDS: METOPROLOL TARTRATE 1 MG/ML VIAL IV STA (21:12)
[2024-11-24 21:24] LABS: Magnesium 1.6 mg/dl (1.7-2.4)
[2024-11-24] MEDS: MAGNESIUM SULFATE / D5W 1 GM/100 ML BAG IV SCH (22:02)
[2024-11-24] MEDS: amLODIPine BESYLATE 5 MG TAB PO SCH (22:11)
[2024-11-24] MEDS: ATORVASTATIN 20 MG TAB PO SCH (22:11)
[2024-11-25] MEDS: METOPROLOL TARTRATE 1 MG/ML VIAL IV STA (02:52)
[2024-11-25] MEDS: dilTIAZem HCl 5 MG/ML 5 ML VIAL IV STA ×2 (02:57→05:53)
[2024-11-25] MEDS: LEVOTHYROXINE SODIUM 25 MCG TABLET PO SCH (05:32)
[2024-11-25] MEDS: PANTOprazole 40 MG TAB PO SCH (05:33)
--- NOTE | 2024-11-25 07:37 | Electrocardiogram Report ---
Test Reason : Blood Pressure : */* mmHG Vent. Rate : 94 BPM Atrial Rate : 94 BPM P-R Int : 180 ms QRS Dur : 96 ms QT Int : 362 ms P-R-T Axes : 79 40 -35 degrees QTcB Int : 452 ms Normal sinus rhythm Possible Inferior infarct , age undetermined Nonspecific ST and T wave abnormality Abnormal ECG When compared with ECG of 10-Dec-2013 09:07, Premature ventricular complexes are no longer Present Nonspecific ST and T wave abnormality is now Present Confirmed by Jose Estrada ([id number]) on 11/25/2024 7:37:20 AM Referred By: REFERRED SELF Confirmed By: Jose Estrada
[2024-11-25] MEDS: ASPIRIN 81 MG ECTAB PO SCH (08:41)
[2024-11-25] MEDS: METOPROLOL SUCC 25MG EXT REL TAB PO SCH (08:41)
--- NOTE | 2024-11-25 09:29 | XRay Report ---
XR chest 1V portable HISTORY: 79 years-old Male COVID acute shortness of breath COMPARISON: None TECHNIQUE: AP view of the chest FINDINGS: Cardiac silhouette is enlarged. Pulmonary vascular congestion. Minimal bibasilar atelectasis. Atheros clerosis of the aorta. No pneumothorax, pleural effusion or pulmonary edema. Bones appear intact. IMPRESSION: Cardiomegaly without acute process. ACT 112: Negative or not required by law. The above report was generated using voice recognition software. It may contain grammatical, syntax o r spelling errors. Electronically signed by: Lexx Mack M.D. 11/25/2024 9:27 AM
[2024-11-25] MEDS: dexAMETHasone 6 MG in SYRINGE 0 ML IV SCH (09:36)
[2024-11-25 10:10] LABS: Hematocrit (blood only) 33.3 % (42.0-52.0); Hemoglobin 11.5 g/dl (14.0-18.0); Mean Corpuscular Hemoglobin 32.9 pg (25.0-34.0); Mean Corpuscular Hgb Conc 34.5 g/dL (32.0-36.0); Mean Corpuscular Volume 95.1 fL (80.0-100.0); Mean Platelet Volume 10.6 fL (9.4-12.4); Neutrophils % (auto) 73.3 %; Platelet Count 183 K/uL (130-400); RDW Coefficient of Variation 12.3 % (11.5-14.5); RDW Standard Deviation 43.3 fL (36.4-46.3); White Blood Count 4.86 K/ul (4.8-10.8)
[2024-11-25 10:11] LABS: Basophils # (auto) 0.03 K/uL (0.00-0.20); Basophils % (auto) 0.6 %; Eosinophils # (auto) 0.03 K/uL (0.00-0.50); Eosinophils % (auto) 0.6 %; Immature Granulocytes # (auto) 0.01 K/uL (0.01-0.20); Immature Granulocytes % (auto) 0.2 %; Lymphocytes # (auto) 0.57 K/uL (1.20-3.40); Lymphocytes % (auto) 11.7 %; Monocytes # (auto) 0.66 K/uL (0.11-0.59); Monocytes % (auto) 13.6 %; Neutrophils # (auto) 3.56 K/uL (1.40-6.50)
[2024-11-25] MEDS: HEPARIN 25000 UNIT/500 ML D5W 25,000 UNITS/500 ML BAG IV SCH (10:29)
[2024-11-25 10:32] LABS: Partial Thromboplastin Ratio 1.1; Partial Thromboplastin Time 30 Seconds (21-31); Prothrombin Time 10.9 Seconds (9.0-12.0)
--- NOTE | 2024-11-25 10:50 | Cardiology Consultation ---
Date of Consultation November 25, 2024 Assessment & Plan (1) Paroxysmal atrial fibrillation with rapid ventricular response: (2) COVID-19: (3) Delirium: Plan 79-year-old male with prior documented history of paroxysmal atrial tachycardias admitted with acute mental status changes and COVID-positive on testing. Since admission he has demonstrated frequent episodes of paroxysmal atrial fibrillation with elevated ventricular response rates. No evidence of myocardial injury or ischemia., Echocardiogram normal wall motion and LV systolic function with moderate left hypertrophy Recommendations 1. Paroxysmal atrial fibrillation: Anticoagulation already begun would continue Patient already on substantial dose of beta-aileen with metoprolol succinate 75 mg/day. Will add amiodarone given possible acute lapse due to respiratory concerns as well as documented prior atrial arrhythmias. Will give loading infusion. Plan EKG daily oral amiodarone as course progresses. May need to reduce metoprolol dosing will hold till assessed in am Will need to stop remdesivir to allow use of amiodarone Given acute medical status changes and paroxysmal atrial arrhythmias consider MRI head to complete evaluation Currently no signs of congestive heart failure, chest x-ray clear History of Present Illness Reason for Consultation: Paroxysmal atrial fibrillation Requesting Physician: Dr. Hector Attending Physician: Theo Hector MD History of Present Illness Patient is a 79-year-old male whose past medical and cardiac issues include 1. PAT and SVT, adenosine responsive 2. Hyperlipidemia with low HDL 3. Hypothyroidism 4. MGUS, monoclonal IgG kappa gammopathy 5. Prostate cancer, on Xtandi and Orgovyx Patient brought to the emergency room due to change in mental status. Possible upper respiratory infection and family and patient on presentation patient COVID-positive. CT of head unrevealing. Since admission patient with intermittent atrial fibrillation observed on telemetry overnight. Not significantly symptomatic but with elevated rates at times. Anticoagulation begun this morning. Patient not seen and COVID protocol. Full care reviewed on chart examination as well as discussion with providers. No clinical complaints this morning. Respiratory status with good oxygenation on 1 L nasal cannula. Chest x-ray today without infiltration. Patient was begun on remdesivir and corticosteroids on presentation. Allergies Allergy/AdvReac Type Severity Reaction Status Date / Time No Known Allergies Allergy Unknown Verified 11/24/24 11:12 Home Medications Medication Instructions Recorded Confirmed Type aspirin 81 mg tablet,delayed 81 mg PO DAILY 05/05/23 11/24/24 History release amlodipine 2.5 mg tablet 2.5 mg PO QPM 11/24/24 11/24/24 History atorvastatin 20 mg tablet 20 mg PO HS 11/24/24 11/24/24 History enzalutamide 40 mg tablet (Xtandi) 0 mg PO HS 11/24/24 11/24/24 History lansoprazole 30 mg capsule,delayed 30 mg PO DAILYBB 11/24/24 11/24/24 History release levothyroxine 25 mcg tablet 25 mcg PO DAILYBB 11/24/24 11/24/24 History metoprolol succinate 50 mg 75 mg PO QAM 11/24/24 11/24/24 History tablet,extended release 24 hr relugolix 120 mg tablet (Orgovyx) 120 mg PO DAILY 11/24/24 11/24/24 History Patient History Surgical History (Updated 05/05/23 @ 13:30 by Shari Boyd RN) Hx of colonoscopy History of prostate surgery 1998 No pertinent past surgical history Family History (Updated 05/05/23 @ 13:28 by Shari Boyd RN) Mother Cancer Father Heart disease Social History (Updated 05/05/23 @ 13:29 by Shari Boyd RN) Smoking Status: Never smoker Hx Alcohol Use: Yes Alcohol type: beer and hard liquor Alcohol Intake Frequency: 2-3 x/Week Hx Substance Use: No Preferred Language: [place] Communication Ability: Effective Asphalt Spreader Required: No Beliefs That Will Affect Care: None marital status: Current Living Situation: Spouse current occupational status: employed 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 How many Children do You have: 2 Feels Safe at Home: Yes Diet: regular during the past year weight has: remained stable Assistive Devices: None Results & Data Vital Signs (Past 12 Hours) Vital Signs Temp Pulse Pulse Resp BP BP BP 11/25/24 10:44 36.9 C 67 17 116/63 11/25/24 07:52 36.9 C 122 H 18 157/81 H 11/25/24 05:47 123 H 144/67 H 11/25/24 03:09 77 117/64 11/25/24 02:52 92 H 131/61 11/25/24 02:34 37 C 87 20 131/61 11/25/24 01:19 37.4 C 11/25/24 00:48 85 Pulse Ox O2 Del Method O2 Flow Rate 11/25/24 10:44 94 Nasal Cannula 1 11/25/24 07:52 94 Nasal Cannula 1.0 11/25/24 05:47 11/25/24 03:09 11/25/24 02:52 11/25/24 02:34 93 Nasal Cannula 1 11/25/24 01:19 11/25/24 00:48 Laboratory Results Laboratory Results - last 24 hr 11/24/24 11/24/24 11/25/24 09:05 19:30 09:39 WBC 4.86 RBC 3.50 L Hgb 11.5 L Hct 33.3 L MCV 95.1 MCH 32.9 MCHC 34.5 RDW Std Deviation 43.3 RDW Coeff of Ozzie 12.3 Plt Count 183 MPV 10.6 Immature Gran % (Auto) 0.2 Neut % (Auto) 73.3 Lymph % (Auto) 11.7 [place] % (Auto) 13.6 Eos % (Auto) 0.6 Baso % (Auto) 0.6 Neut # (Auto) 3.56 Lymph # (Auto) 0.57 L [place] # (Auto) 0.66 H Eos # (Auto) 0.03 Baso # (Auto) 0.03 Immature Gran # (Auto) 0.01 PT 10.9 INR 1.0 APTT 30 PTT Ratio 1.1 Magnesium 1.6 L Urine Color Yellow Urine Appearance Clear Urine pH 6.0 Ur Specific [place] 1.009 Urine Protein Negative Urine Glucose (UA) Negative Urine Ketones Negative Urine Blood Negative Urine Nitrite Negative Urine Bilirubin Negative Urine Urobilinogen Negative Ur Leukocyte Esterase Negative Diagnostic Findings Echocardiogram 11/24/2024 Moderate left ventricular hypertrophy with normal to hyperdynamic LV systolic function and no wall motion abnormalities, EF 65 to 70% No significant valvular disease
[2024-11-25] MEDS ORDERED: MAGNESIUM SULFATE / D5W 1 GM/100 ML BAG IV ONE (10:55)
[2024-11-25] MEDS: AMIODARONE / D5W 360 MG/200 ML BAG IV ONE (11:10)
[2024-11-25] MEDS ORDERED: 0.2 MICRON FILTER SET 1 EACH IV ONE (11:15)
[2024-11-25 11:46] LABS: BUN Creatinine Ratio 20.3 (10-20); C Reactive Protein 8.81 mg/dl (0-0.5); Creatinine Clr Calc Pharmacy 92.2 ml/min; Potassium 3.8 mmol/L (3.5-5.1)
[2024-11-25] MEDS ORDERED: REMDESIVIR 100 MG in SODIUM CHLORIDE 0.9% 230 ML IV SCH (12:00)
--- NOTE | 2024-11-25 12:38 | Hospitalist Progress Note ---
Date of Service November 25, 2024 Assessment & Plan (1) AMS (altered mental status): Plan Altered mental status Likely metabolic encephalopathy in setting of acute COVID infection --CT Head:Cerebral atrophy. No acute changes. Mild acute on chronic left maxillary and ethmoid sinusitis. Mental status back to baseline Patient denies any focal weakness, numbness, tingling, dysarthria Given altered mental status in setting of A-fib RVR, will obtain MRI brain to rule out CVA Follow-up MRI brain COVID-19 infection Hypoxia secondary to above --CXR showed no signs of pneumonia -- Procalcitonin normal -- BioFire positive for COVID-19 -- CRP 8.8 -- Unable to continue remdesivir due to need for amiodarone use -- Continue IV dexamethasone -- Nebs as needed -- Supplemental oxygen as needed -Isolation precautions, antitussives PRN Paroxysmal atrial fibrillation with RVR Normal TSH --ECHO: Left ventricle is normal in size. Moderate concentric LVH. Left ventricle wall motion is normal. EF 65 to 70% mid left atrium is mildly dilated. Aortic valve sclerosis moderate, without significant valvular stenosis. Doppler findings do not suggest pulmonary hypertension --Monitor and replete electrolytes as needed --Continue metoprolol succinate 75 mg daily--adjust dose as needed -- Started on amiodarone as recommended by cardiology --Appreciate cardiology input: Start amiodarone, discontinued on discharge -- Continue IV heparin for anticoagulation Hypomagnesemia Replete electrolytes as needed Monitor Chronic anemia Hemoglobin at baseline Monitor Obesity BMI 36.5 Other chronic conditions Hypertension Hyperlipidemia Prostate cancer--follows with [facility] Hypothyroidism GERD Continue home medications as able DVT Px: IV heparin CODE STATUS Full code Admission and Anticipated Discharge Date Admission Date: November 24, 2024 Subjective Patient is seen and examined at bedside Mental status seem to be back to baseline Discussed with patient's family at bedside States having minimal cough but otherwise no complaints Discussed with cardiology today Denies any dyspnea, nausea, vomiting, chest pain, palpitations No other complaints saturating well on minimal supplemental oxygen Review of Systems Review of Systems: All systems reviewed & are unremarkable except as noted in Subjective Physical Exam Physical Exam: Physical Exam: Vitals signs as noted above General Appearance: Obese, no apparent distress Head: normocephalic, Atraumatic Eyes: normal inspection, EOMI Neck: supple, Trachea midline Respiratory/Chest: Normal breath sounds, CTA, No accessory muscle use Cardiovascular: Irregularly irregular, tachycardia, No murmur Abdomen/GI:Soft, Non tender, Bowel sounds present Extremities/Musculoskeletal:normal inspection, no edema Neurologic/Psych:AAOX3, grossly no focal neurological deficits Skin: normal color, warm Results & Data Results & Data Vital Signs (Past 12 Hours) Vital Signs Temp Pulse Pulse Resp BP BP BP 11/25/24 10:44 36.9 C 67 17 116/63 11/25/24 07:52 36.9 C 122 H 18 157/81 H 11/25/24 05:47 123 H 144/67 H 11/25/24 03:09 77 117/64 11/25/24 02:52 92 H 131/61 11/25/24 02:34 37 C 87 20 131/61 11/25/24 01:19 37.4 C 11/25/24 00:48 85 Pulse Ox O2 Del Method O2 Flow Rate 11/25/24 10:44 94 Nasal Cannula 1 11/25/24 07:52 94 Nasal Cannula 1.0 11/25/24 05:47 11/25/24 03:09 11/25/24 02:52 11/25/24 02:34 93 Nasal Cannula 1 11/25/24 01:19 11/25/24 00:48 Laboratory Results Short CBC 11/25/24 Range/Units 09:39 WBC 4.86 (4.8-10.8) K/ul Hgb 11.5 L (14.0-18.0) g/dl Hct 33.3 L (42.0-52.0) % Plt Count 183 (130-400) K/uL BMP 11/25/24 08:59 Sodium 134 L Potassium 3.8 Chloride 105 Carbon Dioxide 24 BUN 16 Creatinine 0.79 Glucose 121 H Calcium 9.0 Urine 11/24/24 Range/Units 19:30 Urine Color Yellow Urine Appearance Clear (Clear) Urine pH 6.0 (4.5-7.5) Ur Specific [place] 1.009 (1.000-1.030) Urine Protein Negative (Negative) Urine Glucose (UA) Negative (Negative)
[2024-11-25 16:27] LABS: ANTI-Xa, UFH(UnfractionatedHep 0.41 IU/ml (0.3-0.7)
[2024-11-25] MEDS ORDERED: ENZALUTAMIDE 40 MG TABLET PO SCH (21:00)
--- NOTE | 2024-11-25 21:12 | Electrocardiogram Report ---
Test Reason : Blood Pressure : */* mmHG Vent. Rate : 116 BPM Atrial Rate : * BPM P-R Int : * ms QRS Dur : 84 ms QT Int : 328 ms P-R-T Axes : * 16 -60 degrees QTcB Int : 456 ms Atrial fibrillation with rapid ventricular response with sinus complexes Inferior infarct (cited on or before 18-Jan-2004) Nonspecific ST and T wave abnormality Abnormal ECG When compared with ECG of 24-Nov-2024 08:22, Atrial fibrillation has replaced Sinus rhythm Confirmed by Jose Estrada ([id number]) on 11/25/2024 9:12:15 PM Referred By: REFERRED SELF Confirmed By: Jose Estrada
[2024-11-25] MEDS: ENZALUTAMIDE 40 MG TABLET PO SCH (22:33)
[2024-11-25] MEDS: ORGOVYX 120 MG PO SCH (23:31)
[2024-11-26] MEDS: GADOBUTROL 65ML VIAL IV ONE (01:37)
[2024-11-26] MEDS: METOPROLOL TARTRATE 1 MG/ML VIAL IV PRN (02:21)
--- NOTE | 2024-11-26 02:24 | Magnetic Resonance Report ---
EXAM: MR brain wo/w con CLINICAL HISTORY: Altered mental status, Afib TECHNIQUE: Multisequential and multiplanar images of the brain were submitted for review without and with contrast. COMPARISON: CT, 11/24/2024 14:02:00 COOK APPRENTICE PASTRY FINDINGS: Generalized parenchymal atrophy is appreciated. No focal parenchymal lesions are seen. No pathological enhancement is noted on the postcontrast sequences. No intracranial hemorrhage, mass effect, midline shift, extra-axial collection, or hydrocephalus is identified. Ventricles, sulci, and basal cisterns are symmetric and normal in size and configuration. Diffusion-weighted sequences show no evidence of acute ischemic infarction. Midline structures including the pituitary gland, corpus callosum, pineal region, and brainstem are unremarkable. The craniovertebral junction is within normal limits. No calvarial abnormalities are identified. The paranasal sinuses and mastoid air cells are clear. Orbital structures are unremarkable. Appropriate flow voids are present in the visualized intracranial vessels. Left maxillary and bilateral ethmoidal sinusitis. Left side deviated nasal septum. IMPRESSION: 1. No acute ischemia, space occupying mass, or other acute intracranial pathology is demonstrated. 2. Diffuse cerebral atrophy. 3. Left maxillary and bilateral ethmoidal sinusitis. Left side deviated nasal septum. 4. No interval change. Electronically signed by Soto Negro 11-26-2024 02:24 AM
[2024-11-26 07:08] LABS: Hematocrit (blood only) 33.5 % (42.0-52.0); Hemoglobin 11.4 g/dl (14.0-18.0); Mean Corpuscular Hemoglobin 32.7 pg (25.0-34.0); Mean Platelet Volume 10.8 fL (9.4-12.4); Platelet Count 180 K/uL (130-400); RDW Coefficient of Variation 12.4 % (11.5-14.5); RDW Standard Deviation 43.4 fL (36.4-46.3); Red Blood Count 3.49 M/uL (4.70-6.10); White Blood Count 4.24 K/ul (4.8-10.8)
[2024-11-26] MEDS: Heparin IV Adult Wt-Based Standard *NO* INITIAL Bolus Protocol IV SCH (07:33)
[2024-11-26 07:38] LABS: BUN Creatinine Ratio 21.4 (10-20); Calcium 8.8 mg/dl (8.6-10.3); Creatinine Clr Calc Pharmacy 88.6 ml/min; Potassium 3.7 mmol/L (3.5-5.1)
[2024-11-26 07:40] LABS: ANTI-Xa, UFH(UnfractionatedHep 0.78 IU/ml (0.3-0.7)
[2024-11-26] MEDS: guaiFENesin/DEXTROM SYRUP 100MG/10MG 5ML UDC PO PRN (08:02)
[2024-11-26] MEDS ORDERED: RELUGOLIX 120 MG PO SCH (09:00)
--- NOTE | 2024-11-26 09:50 | Cardiology Progress Note ---
Date of Service November 26, 2024 Assessment & Plan (1) Paroxysmal atrial fibrillation with rapid ventricular response: (2) COVID-19: (3) Delirium: Plan 11/25/24 79-year-old male with prior documented history of paroxysmal atrial tachycardias admitted with acute mental status changes and COVID-positive on testing. Since admission he has demonstrated frequent episodes of paroxysmal atrial fibrillation with elevated ventricular response rates. No evidence of myocardial injury or ischemia., Echocardiogram normal wall motion and LV systolic function with moderate left hypertrophy Recommendations 1. Paroxysmal atrial fibrillation: Anticoagulation already begun would continue Patient already on substantial dose of beta-aileen with metoprolol succinate 75 mg/day. Will add amiodarone given possible acute lapse due to respiratory concerns as well as documented prior atrial arrhythmias. Will give loading infusion. Plan EKG daily oral amiodarone as course progresses. May need to reduce metoprolol dosing will hold till assessed in am Will need to stop remdesivir to allow use of amiodarone Given acute medical status changes and paroxysmal atrial arrhythmias consider MRI head to complete evaluation Currently no signs of congestive heart failure, chest x-ray clear 11/26/24: Patient reverted back to afib this morning with RVR. Received IV amiodarone initial loading dose yesterday but gtt was not continued. Remdesivir discontinued due to interaction with amiodarone Noted also to be an interaction between amiodarone and prostate CA therapy - Enzalutamide. This was reviewed and discussed with pharmacist. Interaction causes reduced amiodarone levels and efficacy, often needing higher doses to be effective. Ok to reload and start IV amiodarone bolus and gtt. Resume oral metoprolol 75 mg this morning. Continue IV heparin. Will need anticoagulation upon returning home - Eliquis 5 mg BID. Would recommend case management verify cost. Continue supportive care for COVID. Mental status improving. Brain MRI without acute findings this morning. Continue all other cardiac medications including ASA, statin, amlodipine. Case discussed with Dr. Price I spent a total of 45 minutes on the date of service in preparation, delivery, and documentation of the care provided to this patient, excluding any time spent in the performance of separately billed services. Leann Jones PA-C Department of Cardiology, [facility] This chart was completed in part utilizing Speech Voice Recognition Software. Grammatical errors, random word insertions, pronoun errors, and incomplete sentences are an occasional consequence of this system due to software limi tations, ambient noise, and hardware issues. Any formal questions or concerns about the content, text, or information contained within the body of this dictation should be directly addressed to the provider for clarification. Admission and Anticipated Discharge Date Admission Date: November 24, 2024 Supervising Physician Co-Signing Physician Notes Attending attestation: Case reviewed with the advanced practitioner. I have personally performed a history and physical examination on the patient. I have reviewed the advanced practitioner's documentation on the date of service referenced in note, and I agree with, and take responsibility for the plan of care. Subjective: Patient without acute complaints. Spouse, Sushma, at the bedside. Patient states he got out of bed to use the commode for the first time in several days. This morning had 8:15 AM he reverted from sinus rhythm to atrial fibrillation with rapid ventricular response. He had since been started back on IV amiodarone and has converted back to sinus rhythm in the 60s. Exam: Cardiovascular: Regular rhythm, no murmurs, trace lower extremity edema Data: No acute abnormalities on MRI brain Impression/ Plan: Paroxysmal atrial fibrillation Delirium-improved COVID-19 infection -Continue heparin for now, likely transition to Eliquis on 11/27/2024 -Continue metoprolol. Amiodarone reinitiated and patient has since converted back to sinus rhythm. Interaction between metoprolol and Xtandi noted with potential to increase metabolism of the amiodarone and reduce its efficacy. I think it would still be reasonable to treat the patient with this in the short-term however with hopes that as his COVID illness resolves atrial fibrillation will also improve. I spent a total of 20 minutes coordinating, documenting, and providing care for this patient excluding time spent in the performance of separately billed services or time spent by another provider. Mark Price, DO Subjective Patient resting in bed. Reports he is feeling better than admission. Appears mental status has also improved. Alert and oriented this morning. At 8:15 this morning patient reverted back to atrial fibrillation with RVR ranging 110-130's. He is asymptomatic currently. No chest pain or dyspnea. Review of Systems Review of Systems: All systems reviewed & are unremarkable except as noted in HPI & below Physical Exam Constitutional: WD/WN, vitals as above Neck: trachea midline, no thyromegaly Respiratory: normal respiratory effort, lungs clear to auscultation Cardiovascular: Rate/Rhythm: + tachycardic and + irregularly irregular Heart Sounds: normal S1 and normal S2; no murmur Vessels: no JVD Extremities: + edema (trace ) Gastrointestinal (Abdomen): normal bowel sounds, soft, nontender, no hepatosplenomegaly Psychiatric: Orientation: alert Results & Data Vital Signs (Past 12 Hours) Vital Signs Temp Pulse Pulse Resp BP BP Pulse Ox 11/26/24 08:00 36.9 C 62 18 137/80 94 11/26/24 02:59 61 11/26/24 02:37 57 L 132/74 11/26/24 02:21 120 H 156/76 H 11/26/24 02:10 36.5 C 119 H 22 154/89 H 91 11/25/24 22:50 36.3 C L 76 20 130/76 93 O2 Del Method 11/26/24 08:00 Room Air 11/26/24 02:59 11/26/24 02:37 11/26/24 02:21 11/26/24 02:10 Room Air 11/25/24 22:50 Room Air Laboratory Results CBC 11/26/24 Range/Units 06:23 WBC 4.24 L (4.8-10.8) K/ul RBC 3.49 L (4.70-6.10) M/uL Hgb 11.4 L (14.0-18.0) g/dl Hct 33.5 L (42.0-52.0) % Plt Count 180 (130-400) K/uL Comprehensive Metabolic Panel 11/25/24 11/26/24 Range/Units 08:59 06:23 Sodium 134 L 137 (136-145) mmol/L Potassium 3.8 3.7 (3.5-5.1) mmol/L Chloride 105 105 (98-107) mmol/L Carbon Dioxide 24 26 (21-32) mmol/L BUN 16 18 (6-23) mg/dl Creatinine 0.79 0.84 (0.6-1.4) mg/dl Glucose 121 H 98 (70-99(Fasting)) mg/dl Calcium 9.0 8.8 (8.6-10.3) mg/dl Intake and Output 11/25/24 11/26/24 11/26/24 22:59 06:59 14:59 Intake Total 451 / 1132 681 / 1132 150.0 / 150.0 Output Total 600 / 600 Balance 451 / 532 81 / 532 150.0 / 150.0 Intake: IV 451 / 692 241 / 692 150.0 / 150.0 Amiodarone / D5w 360 mg In 200 200 / 200 ml @ 1 MG/MIN 33.333 mls/hr IV ONE ONE Rx#:[id number] Heparin 80582 Unit/500 ml 25, 251 / 492 241 / 492 150.0 / 150.0 000 units In 500 ml @ 1,500 UNITS/HR 30 mls/hr IV .[id number] JAXSON Rx#:[id number] Oral 440 / 440 Output: Urine 600 / 600 Other: # Unmeasured Voids 1 3 Weight 113.5 kg Weight Measurement Method Built in [facility] Diagnostic Findings Telemetry reviewed: NSR overnight, then around 8:15 AM patient reverted back to atrial fibrillation with RVR. Brain MRI today: IMPRESSION: 1. No acute ischemia, space occupying mass, or other acute intracranial pathology is demonstrated. 2. Diffuse cerebral atrophy. 3. Left maxillary and bilateral ethmoidal sinusitis. Left side deviated nasal septum. 4. No interval change. Medications Administered Current Inpatient Medications Acetaminophen (Acetaminophen 325 Mg Tab) 650 mg PO Q4H PRN PRN Reason: Pain or Fever Stop: 12/24/24 12:34 Last Admin: 11/26/24 02:08 Dose: 650 mg Amlodipine Besylate (Amlodipine Besylate 5 Mg Tab) 2.5 mg PO QPM JAXSON Stop: 12/24/24 20:59 Last Admin: 11/25/24 20:29 Dose: 2.5 mg Aspirin (Aspirin 81 Mg Ectab) 81 mg PO DAILY JAXSON Stop: 12/25/24 08:59 Last Admin: 11/26/24 08:04 Dose: 81 mg Atorvastatin Calcium (Atorvastatin 20 Mg Tab) 20 mg PO HS JAXSON Stop: 12/24/24 20:59 Last Admin: 11/25/24 20:29 Dose: 20 mg Enzalutamide (Enzalutamide 40 Mg Tablet) 4 each PO HS JAXSON Stop: 12/25/24 20:59 Last Admin: 11/25/24 22:33 Dose: 4 each Guaifenesin/Dextromethorphan (Guaifenesin/Dextrom Syrup 100mg/10mg 5ml Udc) 5 ml PO Q6H PRN PRN Reason: Cough Stop: 12/25/24 08:19 Last Admin: 11/26/24 08:02 Dose: 5 ml Dexamethasone 6 mg/ Syringe 1.5 mls @ 1 mls/min IV DAILY [facility] Stop: 12/05/24 08:59 Last Admin: 11/26/24 10:22 Dose: 1 mls/min Heparin Sodium/Dextrose (Heparin 57766 Unit/500 Ml) 25,000 units in 500 mls @ 28 mls/hr IV .[id number] [facility]; Protocol Stop: 12/25/24 09:59 Last Titration: 11/26/24 07:53 Dose: 1,400 units/hr, 28 mls/hr Levothyroxine Sodium (Levothyroxine Sodium 25 Mcg Tablet) 25 mcg PO DAILYBB [facility] Stop: 12/25/24 06:29 Last Admin: 11/26/24 06:10 Dose: 25 mcg Metoprolol Succinate (Metoprolol Succ 25mg Ext Rel Tab) 75 mg PO QAM [facility] Stop: 12/25/24 08:59 Last Admin: 11/25/24 08:41 Dose: 75 mg Metoprolol Tartrate (Metoprolol Tartrate 1 Mg/Ml Vial) 5 mg IV Q6 PRN PRN Reason: Tachycardia HR>110 Stop: 12/25/24 11:59 Last Admin: 11/26/24 02:21 Dose: 5 mg Orgovyx 120 Mg ~ Non -Formulary Patient's Own Med 1 each PO DAILY@2300 [facility] Stop: 12/25/24 22:59 Last Admin: 11/25/24 23:31 Dose: 1 tab Pantoprazole Sodium (Pantoprazole 40 Mg Tab) 40 mg PO DAILYBB [facility] Stop: 12/25/24 06:29 Last Admin: 11/26/24 06:10 Dose: 40 mg
[2024-11-26] MEDS: POTASSIUM CHLORIDE CRTAB 20 MEQ TABCR PO ONE ×2 (10:22→12:55)
[2024-11-26] MEDS ORDERED: AMIODARONE IV BOLUS & DRIP IV STA (10:50)
[2024-11-26] MEDS ORDERED: 0.2 MICRON FILTER SET 1 EACH IV STA (10:50)
[2024-11-26] MEDS ORDERED: STAT IV Infusion **Titration per Protocol STA (10:50)
[2024-11-26] MEDS ORDERED: Nursing to Pharmacy Communication SCH (11:00)
[2024-11-26] MEDS: METOPROLOL SUCC 25MG EXT REL TAB PO SCH (11:14)
[2024-11-26] MEDS: AMIODARONE / D5W 150 MG/100 ML BAG IV STA (11:43)
[2024-11-26] MEDS: AMIODARONE / D5W 360 MG/200 ML BAG IV ONE (11:43)
--- NOTE | 2024-11-26 14:50 | Hospitalist Progress Note ---
Date of Service November 26, 2024 Assessment & Plan (1) AMS (altered mental status): Plan Altered mental status Likely metabolic encephalopathy in setting of acute COVID infection --CT Head:Cerebral atrophy. No acute changes. Mild acute on chronic left maxillary and ethmoid sinusitis. --MRI Brain:No acute ischemia, space occupying mass, or other acute intracranial pathology is demonstrated. Diffuse cerebral atrophy. Mental status back to baseline Patient denies any focal weakness, numbness, tingling, dysarthria Resolved COVID-19 infection Hypoxia secondary to above --CXR showed no signs of pneumonia -- Procalcitonin normal -- BioFire positive for COVID-19 -- CRP 8.8 -- Unable to continue remdesivir due to need for amiodarone use -- Continue IV dexamethasone -- Nebs as needed -- Weaned off of supplemental oxygen -Isolation precautions, antitussives PRN -- Saturating well on room air Paroxysmal atrial fibrillation with RVR Normal TSH --ECHO: Left ventricle is normal in size. Moderate concentric LVH. Left ventricle wall motion is normal. EF 65 to 70% mid left atrium is mildly dilated. Aortic valve sclerosis moderate, without significant valvular stenosis. Doppler findings do not suggest pulmonary hypertension --Monitor and replete electrolytes as needed --Continue metoprolol succinate 75 mg daily -- Started on amiodarone as recommended by cardiology --Appreciate cardiology input: Continue metoprolol, amiodarone, IV heparin -- Continue IV heparin for anticoagulation. Plan to discharge on Eliquis Hypomagnesemia Replete electrolytes as needed Monitor Chronic anemia Hemoglobin at baseline Monitor Obesity BMI 36.5 Other chronic conditions Hypertension Hyperlipidemia Prostate cancer--follows with [facility]. Hold immunotherapy in setting of acute infection as recommended by his primary oncologist. Hypothyroidism GERD Continue home medications as able DVT Px: IV heparin CODE STATUS Full code Admission and Anticipated Discharge Date Admission Date: November 24, 2024 Subjective Patient is seen and examined at bedside Less cough today Offers no new complaints Discussed with patient's family at bedside Weaned off of supplemental oxygen Patient denies any chest pain, palpitations, dyspnea, nausea, vomiting Review of Systems Review of Systems: All systems reviewed & are unremarkable except as noted in Subjective Physical Exam Physical Exam: Physical Exam: Vitals signs as noted above General Appearance: Obese, no apparent distress Head: normocephalic, Atraumatic Eyes: normal inspection, EOMI Neck: supple, Trachea midline Respiratory/Chest: Normal breath sounds, CTA, No accessory muscle use Cardiovascular: Irregularly irregular, tachycardia, No murmur Abdomen/GI:Soft, Non tender, Bowel sounds present Extremities/Musculoskeletal:normal inspection, no edema Neurologic/Psych:AAOX3, grossly no focal neurological deficits Skin: normal color, warm Results & Data Results & Data Vital Signs (Past 12 Hours) Vital Signs Temp Pulse Pulse Resp BP Pulse Ox Pulse Ox 11/26/24 12:00 96 11/26/24 11:53 36.9 C 59 L 18 131/75 93 11/26/24 09:00 11/26/24 08:00 36.9 C 62 18 137/80 94 11/26/24 02:59 61 O2 Del Method O2 Del Method 11/26/24 12:00 Room Air 11/26/24 11:53 Room Air 11/26/24 09:00 Room Air 11/26/24 08:00 Room Air 11/26/24 02:59 Laboratory Results Short CBC 11/26/24 Range/Units 06:23 WBC 4.24 L (4.8-10.8) K/ul Hgb 11.4 L (14.0-18.0) g/dl Hct 33.5 L (42.0-52.0) % Plt Count 180 (130-400) K/uL BMP 11/26/24 06:23 Sodium 137 Potassium 3.7 Chloride 105 Carbon Dioxide 26 BUN 18 Creatinine 0.84 Glucose 98 Calcium 8.8
[2024-11-26 15:40] LABS: ANTI-Xa, UFH(UnfractionatedHep 0.65 IU/ml (0.3-0.7)
[2024-11-26] MEDS: AMIODARONE / D5W 360 MG/200 ML BAG IV SCH (17:21)
[2024-11-27 07:55] VITALS: RESP 18
[2024-11-27 07:58] LABS: Calcium 8.6 mg/dl (8.6-10.3); Creatinine Clr Calc Pharmacy 84.5 ml/min; Magnesium 1.8 mg/dl (1.7-2.4); Potassium 3.6 mmol/L (3.5-5.1)
[2024-11-27 09:34] LABS: ANTI-Xa, UFH(UnfractionatedHep 0.89 IU/ml (0.3-0.7)
--- NOTE | 2024-11-27 10:02 | Cardiology Progress Note ---
Date of Service November 27, 2024 Assessment & Plan (1) Paroxysmal atrial fibrillation with rapid ventricular response: (2) COVID-19: (3) Delirium: Plan 11/25/24 79-year-old male with prior documented history of paroxysmal atrial tachycardias admitted with acute mental status changes and COVID-positive on testing. Since admission he has demonstrated frequent episodes of paroxysmal atrial fibrillation with elevated ventricular response rates. No evidence of myocardial injury or ischemia., Echocardiogram normal wall motion and LV systolic function with moderate left hypertrophy Recommendations 1. Paroxysmal atrial fibrillation: Anticoagulation already begun would continue Patient already on substantial dose of beta-aileen with metoprolol succinate 75 mg/day. Will add amiodarone given possible acute lapse due to respiratory concerns as well as documented prior atrial arrhythmias. Will give loading infusion. Plan EKG daily oral amiodarone as course progresses. May need to reduce metoprolol dosing will hold till assessed in am Will need to stop remdesivir to allow use of amiodarone Given acute medical status changes and paroxysmal atrial arrhythmias consider MRI head to complete evaluation Currently no signs of congestive heart failure, chest x-ray clear 11/26/24: Patient reverted back to afib this morning with RVR. Received IV amiodarone initial loading dose yesterday but gtt was not continued. Remdesivir discontinued due to interaction with amiodarone Noted also to be an interaction between amiodarone and prostate CA therapy - Enzalutamide. This was reviewed and discussed with pharmacist. Interaction causes reduced amiodarone levels and efficacy, often needing higher doses to be effective. Ok to reload and start IV amiodarone bolus and gtt. Resume oral metoprolol 75 mg this morning. Continue IV heparin. Will need anticoagulation upon returning home - Eliquis 5 mg BID. Would recommend case management verify cost. Continue supportive care for COVID. Mental status improving. Brain MRI without acute findings this morning. Continue all other cardiac medications including ASA, statin, amlodipine. 11/27/24 Patient converted to NSR yesterday after initiation of IV amiodarone. IV amiodarone discontinued overnight due to sinus bradycardia. Currently NSR in the 60's. Recommend oral amiodarone 200 mg daily at least for a short course upon returning home to maintain NSR. Recommend Eliquis 5 mg BID. Stop IV heparin with first dose of Eliquis this morning. Will need to verify cost with insurance, case management to assist. Given mild bradycardia, reduce metoprolol to 50 mg daily with the amiodarone. EKG today with stable QT measurements. Continue supportive care for COVID. AMS improved and back to baseline. Continue all other cardiac medications. Stable from cardiac perspective. Will arrange 2-4 week hospital f/u appt at [facility]. Case discussed with Dr. Price I spent a total of 30 minutes on the date of service in preparation, delivery, and documentation of the care provided to this patient, excluding any time spent in the performance of separately billed services. Leann Jones PA-C Department of Cardiology, [facility] This chart was completed in part utilizing Speech Voice Recognition Software. Grammatical errors, random word insertions, pronoun errors, and incomplete sentences are an occasional consequence of this system due to software limitations, ambient noise, and hardware issues. Any formal questions or concerns about the content, text, or information contained within the body of this dictation should be directly addressed to the provider for clarification. Admission and Anticipated Discharge Date Admission Date: November 24, 2024 Supervising Physician Co-Signing Physician Notes Attending attestation: Case reviewed with the advanced practitioner. I have personally performed a history and physical examination on the patient. I have reviewed the advanced practitioner's documentation on the date of service referenced in note, and I agree with, and take responsibility for the plan of care. I spent a total of 20 minutes coordinating, documenting, and providing care for this patient excluding time spent in the performance of separately billed services or time spent by another provider. Mark Price, DO Subjective Patient resting in bed. Feeling much better. Hoping to go home today. Denies chest pain. No SOB/cough. No edema. No palpitations Review of Systems Review of Systems: All systems reviewed & are unremarkable except as noted in HPI & below Physical Exam Constitutional: WD/WN, vitals as above well developed; no acute distress Neck: normal visual inspection Respiratory: normal respiratory effort; no labored breathing Auscultation: lungs clear to auscultation bilaterally Cardiovascular: Rate/Rhythm: regular rate and regular rhythm Heart Sounds: normal S1 and normal S2; no murmur Vessels: no JVD Extremities: no edema Gastrointestinal (Abdomen): normal bowel sounds, soft, nontender, no hepatosplenomegaly Musculoskeletal: no cyanosis or clubbing, extremities motor strength 5/5 Skin: no rashes, warm and dry Neurologic: PERRL, EOMI, accommodation nl, no face palsy, no dysarthria Psychiatric: A+Ox3, euthymic affect Results & Data Vital Signs (Past 12 Hours) Vital Signs Temp Pulse Pulse Resp BP BP Pulse Ox 11/27/24 09:00 64 11/27/24 07:54 36.8 C 52 L 18 143/78 H 95 11/27/24 07:00 11/27/24 03:15 36.9 C 60 17 144/74 H 97 11/27/24 00:10 52 L 11/26/24 23:19 36.5 C 52 L 20 150/75 H 95 O2 Del Method 11/27/24 09:00 11/27/24 07:54 Room Air 11/27/24 07:00 Room Air 11/27/24 03:15 Room Air 11/27/24 00:10 11/26/24 23:19 Room Air Laboratory Results Comprehensive Metabolic Panel 11/27/24 Range/Units 06:54 Sodium 139 (136-145) mmol/L Potassium 3.6 (3.5-5.1) mmol/L Chloride 105 (98-107) mmol/L Carbon Dioxide 28 (21-32) mmol/L BUN 22 (6-23) mg/dl Creatinine 0.88 (0.6-1.4) mg/dl Glucose 88 (70-99(Fasting)) mg/dl Calcium 8.6 (8.6-10.3) mg/dl Intake and Output 11/26/24 11/27/24 11/27/24 22:59 06:59 14:59 Intake Total 790.000 / 1651.652 251.652 / 1651.652 358.400 / 358.400 Output Total 100 / 725 225 / 725 Balance 690.000 / 926.652 26.652 / 926.652 358.400 / 358.400 Intake: IV 550.000 / 931.652 131.652 / 931.652 358.400 / 358.400 Amiodarone / D5w 360 mg In 200 200 / 331.652 131.652 / 331.652 ml @ 0.5 MG/MIN 16.667 mls/hr IV .Q12H [facility] Rx#:[id number] Heparin 79413 Unit/500 ml 25, 350.000 / 500.000 358.400 / 358.400 000 units In 500 ml @ 1,400 UNITS/HR 28 mls/hr IV .[id number] [facility] Rx#:[id number] Oral 240 / 720 120 / 720 Output: Urine 100 / 725 225 / 725 Other: # Unmeasured Voids 2 1 Weight 113.4 kg Weight Measurement Method Built in [facility] Diagnostic Findings Telemetry reviewed: NSR/Sinus bradycardia. HR ranging 55-65 bmp. Patient converted from afib around noon yesterday 11/26/24. Maintaining NSR since then. EKG reviewed this morning: Sinus bradycardia at 53 bmp Possible old inferior infarct PACs no longer evident. QT/QTC 486/456 ms Medications Administered Current Inpatient Medications Acetaminophen (Acetaminophen 325 Mg Tab) 650 mg PO Q4H PRN PRN Reason: Pain or Fever Stop: 12/24/24 12:34 Last Admin: 11/27/24 09:19 Dose: 650 mg Amiodarone HCl (Amiodarone 200 Mg Tab) 200 mg PO QAM JAXSON Stop: 12/27/24 09:44 Amlodipine Besylate (Amlodipine Besylate 5 Mg Tab) 2.5 mg PO QPM JAXSON Stop: 12/24/24 20:59 Last Admin: 11/26/24 20:31 Dose: 2.5 mg Apixaban (Apixaban 5 Mg Tablet) 5 mg PO BID JAXSON Stop: 12/27/24 09:44 Aspirin (Aspirin 81 Mg Ectab) 81 mg PO DAILY JAX[facility] Stop: 12/25/24 08:59 Last Admin: 11/27/24 09:15 Dose: 81 mg Atorvastatin Calcium (Atorvastatin 20 Mg Tab) 20 mg PO HS JAXSON Stop: 12/24/24 20:59 Last Admin: 11/26/24 20:31 Dose: 20 mg Guaifenesin/Dextromethorphan (Guaifenesin/Dextrom Syrup 100mg/10mg 5ml Udc) 5 ml PO Q6H PRN PRN Reason: Cough Stop: 12/25/24 08:19 Last Admin: 11/27/24 09:19 Dose: 5 ml Dexamethasone 6 mg/ Syringe 1.5 mls @ 1 mls/min IV DAILY JAXSON Stop: 12/05/24 08:59 Last Admin: 11/26/24 10:22 Dose: 1 mls/min Amiodarone HCl/Dextrose (Nexterone / D5w) 360 mg in 200 mls @ 16.667 mls/hr IV .Q12H [facility] Stop: 12/26/24 16:59 Last Infusion: 11/27/24 01:14 Dose: 0 mg/min, 0 mls/hr Levothyroxine Sodium (Levothyroxine Sodium 25 Mcg Tablet) 25 mcg PO DAILYBB [facility] Stop: 12/25/24 06:29 Last Admin: 11/27/24 06:04 Dose: 25 mcg Metoprolol Succinate (Metoprolol Succ 50mg Ext Rel Tab) 50 mg PO [facility] Stop: 12/28/24 08:59 Metoprolol Tartrate (Metoprolol Tartrate 1 Mg/Ml Vial) 5 mg IV Q6 PRN PRN Reason: Tachycardia HR>110 Stop: 12/25/24 11:59 Last Admin: 11/26/24 02:21 Dose: 5 mg Pantoprazole Sodium ([facility] 40 Mg Tab) [facility]: 12/25/24 06:29 Last Admin: 11/27/24 06:04 Dose: 40 mg
[2024-11-27] MEDS: APIXABAN 5 MG TABLET PO SCH (11:14)
[2024-11-27 11:54] VITALS: TEMP 97.3; O2SAT 94
--- NOTE | 2024-11-27 12:06 | Hospitalist Progress Note ---
Date of Service November 27, 2024 Assessment & Plan (1) AMS (altered mental status): Plan Altered mental status Likely metabolic encephalopathy in setting of acute COVID infection --CT Head:Cerebral atrophy. No acute changes. Mild acute on chronic left maxillary and ethmoid sinusitis. --MRI Brain:No acute ischemia, space occupying mass, or other acute intracranial pathology is demonstrated. Diffuse cerebral atrophy. Mental status back to baseline Patient denies any focal weakness, numbness, tingling, dysarthria Resolved COVID-19 infection Hypoxia secondary to above --CXR showed no signs of pneumonia -- Procalcitonin normal -- BioFire positive for COVID-19 -- CRP 8.8 -- Unable to continue remdesivir due to need for amiodarone use -- Continue IV dexamethasone--will discontinue on discharge -- Nebs as needed -- Weaned off of supplemental oxygen -Isolation precautions, antitussives PRN -- Saturating well on room air Paroxysmal atrial fibrillation with RVR Normal TSH --ECHO: Left ventricle is normal in size. Moderate concentric LVH. Left ventricle wall motion is normal. EF 65 to 70% mid left atrium is mildly dilated. Aortic valve sclerosis moderate, without significant valvular dimas nosis. Doppler findings do not suggest pulmonary hypertension --Monitor and replete electrolytes as needed --Continue metoprolol succinate at reduced dose 50 mg daily -- Continue amiodarone 200 mg daily --Appreciate cardiology input: Continue metoprolol, amiodarone, IV heparin -- Transition IV heparin to Eliquis --Needs follow-up with cardiology on discharge for possible EP study/pacemaker placement Hypomagnesemia Replete electrolytes as needed Monitor Chronic anemia Hemoglobin at baseline Monitor Obesity BMI 36.5 Other chronic conditions Hypertension Hyperlipidemia Prostate cancer--follows with [facility]. Hold immunotherapy in setting of acute infection as recommended by his primary oncologist. Hypothyroidism GERD Continue home medications as able DVT Px: Eliquis CODE STATUS Full code Admission and Anticipated Discharge Date Admission Date: November 24, 2024 Subjective Patient is seen and examined at bedside Doing well today Discussed with patient's family at bedside Converted to sinus Also discussed with cardiology today Patient offers no complaints today Saturating well on room air Eager to get discharged home today less cough today Denies any chest pain, palpitations, dyspnea, nausea, vomiting Review of Systems Review of Systems: All systems reviewed & are unremarkable except as noted in Subjective Physical Exam Physical Exam: Physical Exam: Vitals signs as noted above General Appearance: Obese, no apparent distress Head: normocephalic, Atraumatic Eyes: normal inspection, EOMI Neck: supple, Trachea midline Respiratory/Chest: Normal breath sounds, CTA, No accessory muscle use Cardiovascular: S1, S2, no murmur Abdomen/GI:Soft, Non tender, Bowel sounds present Extremities/Musculoskeletal:normal inspection, no edema Neurologic/Psych:AAOX3, grossly no focal neurological deficits Skin: normal color, warm Results & Data Results & Data Vital Signs (Past 12 Hours) Vital Signs Temp Pulse Pulse Resp BP Pulse Ox O2 Del Method 11/27/24 11:53 36.3 C L 52 L 18 135/77 94 Room Air 11/27/24 09:00 64 11/27/24 07:54 36.8 C 52 L 18 143/78 H 95 Room Air 11/27/24 07:00 Room Air 11/27/24 03:15 36.9 C 60 17 144/74 H 97 Room Air 11/27/24 00:10 52 L Laboratory Results [facility] 11/27/24 06:54 Sodium 139 Potassium 3.6 Chloride 105 Carbon Dioxide 28 BUN 22 Creatinine 0.88 Glucose 88 Calcium 8.6
--- NOTE | 2024-11-27 12:50 | Discharge Summary ---
Date of Service November 27, 2024 Admission HPI Per Admitting Provider 79M pmh htn, HLD, prostate ca on multiple oral medications, tachycardia, gerd, hypothyroidism who presents to the ED altered. On my evaluation patient is AAOx0, and son are at bedside and provide history. states on she developed a "head cold", and on Sat AM the patient awoke and was confused. Patient did not complain of any sinus or respiratory compromise before Tuesday. No history of confusion or AMS in the past. No current respiratory complaints per the , though difficult to verify with the patient. Admission Exam Per Admitting Provider Constitutional: WD/WN, vitals as above Respiratory: normal respiratory effort, lungs clear to auscultation Cardiovascular: Extremities: + edema (+1) Psychiatric: Orientation: + not oriented x 3 Principal Diagnosis Acute metabolic encephalopathy COVID-19 infection Hypoxia Atrial fibrillation with rapid ventricular response Discharge Data Allergies Allergy/AdvReac Type Severity Reaction Status Date / Time No Known Allergies Allergy Unknown Verified 11/24/24 11:12 Consultations 11/24/24 12:07 ED Decision to Admit Stat 11/25/24 08:46 Consult Cardiology Routine Procedures Performed Laboratory Results WBC 4.24 K/ul (4.8-10.8) L 11/26/24 06:23 RBC 3.49 M/uL (4.70-6.10) L 11/26/24 06:23 Hgb 11.4 g/dl (14.0-18.0) L 11/26/24 06:23 Hct 33.5 % (42.0-52.0) L 11/26/24 06:23 MCV 96.0 fL (80.0-100.0) 11/26/24 06:23 MCH 32.7 pg (25.0-34.0) 11/26/24 06:23 MCHC 34.0 g/dL (32.0-36.0) 11/26/24 06:23 RDW Std Deviation 43.4 fL (36.4-46.3) 11/26/24 06:23 RDW Coeff of Ozzie 12.4 % (11.5-14.5) 11/26/24 06:23 Plt Count 180 K/uL (130-400) 11/26/24 06:23 MPV 10.8 fL (9.4-12.4) 11/26/24 06:23 Immature Gran % (Auto) 0.2 % 11/25/24 09:39 Neut % (Auto) 73.3 % 11/25/24 09:39 Lymph % (Auto) 11.7 % 11/25/24 09:39 [place] % (Auto) 13.6 % 11/25/24 09:39 Eos % (Auto) 0.6 % 11/25/24 09:39 Baso % (Auto) 0.6 % 11/25/24 09:39 Neut # (Auto) 3.56 K/uL (1.40-6.50) 11/25/24 09:39 Lymph # (Auto) 0.57 K/uL (1.20-3.40) L 11/25/24 09:39 [place] # (Auto) 0.66 K/uL (0.11-0.59) H 11/25/24 09:39 Eos # (Auto) 0.03 K/uL (0.00-0.50) 11/25/24 09:39 Baso # (Auto) 0.03 K/uL (0.00-0.20) 11/25/24 09:39 Immature Gran # (Auto) 0.01 K/uL (0.01-0.20) 11/25/24 09:39 PT 10.9 Seconds (9.0-12.0) 11/25/24 09:39 INR 1.0 (0.9-1.1) 11/25/24 09:39 APTT 30 Seconds (21-31) 11/25/24 09:39 PTT Ratio 1.1 11/25/24 09:39 Heparin Anti-Xa, Unfract 0.89 IU/ml (0.3-0.7) H* 11/27/24 06:54 Sodium 139 mmol/L (136-145) 11/27/24 06:54 Potassium 3.6 mmol/L (3.5-5.1) 11/27/24 06:54 Chloride 105 mmol/L (98-107) 11/27/24 06:54 Carbon Dioxide 28 mmol/L (21-32) 11/27/24 06:54 Anion Gap 6 (3-11) 11/27/24 06:54 BUN 22 mg/dl (6-23) 11/27/24 06:54 Creatinine 0.88 mg/dl (0.6-1.4) 11/27/24 06:54 Est Cr Clr Drug Dosing 84.5 ml/min 11/27/24 06:54 eGFR 88.01 11/27/24 06:54 BUN/Creatinine Ratio 25.0 (10-20) H 11/27/24 06:54 Glucose 88 mg/dl (70-99(Fasting)) 11/27/24 06:54 Lactate 1.0 mmol/L (0.4-2.0) 11/24/24 09:05 Calcium 8.6 mg/dl (8.6-10.3) 11/27/24 06:54 Magnesium 1.8 mg/dl (1.7-2.4) 11/27/24 06:54 Total Bilirubin 0.9 mg/dl (0.2-1.0) 11/24/24 09:05 AST 9 U/L (13-39) L 11/24/24 09:05 ALT 7 U/L (7-52) 11/24/24 09:05 Alkaline Phosphatase 62 U/L (34-104) 11/24/24 09:05 Troponin I High Sens 9.3 pg/ml (0-20) 11/24/24 09:05 C-Reactive Protein 8.81 mg/dl (0-0.5) H 11/25/24 08:59 Total Protein 7.1 gm/dl (6.0-8.3) 11/24/24 09:05 Albumin 4.1 gm/dl (3.4-5.0) 11/24/24 09:05 Globulin 3.0 gm/dl (2.5-4.0) 11/24/24 09:05 Albumin/Globulin Ratio 1.4 (0.9-2) 11/24/24 09:05 Procalcitonin 0.10 ng/ml (0-0.5) 11/25/24 09:40 TSH 1.421 uIu/ml (0.300-4.500) 11/24/24 09:05 Urine Color Yellow 11/24/24 19:30 Urine Appearance Clear (Clear) 11/24/24 19:30 Urine pH 6.0 (4.5-7.5) 11/24/24 19:30 Ur Specific [place] 1.009 (1.000-1.030) 11/24/24 19:30 Urine Protein Negative (Negative) 11/24/24 19:30 Urine Glucose (UA) Negative (Negative) 11/24/24 19:30 Urine Ketones Negative (Negative) 11/24/24 19:30 Urine Blood Negative (Negative) 11/24/24 19:30 Urine Nitrite Negative (Negative) 11/24/24 19:30 Urine Bilirubin Negative (Negative) 11/24/24 19:30 Urine Urobilinogen Negative (Negative) 11/24/24 19:30 Ur Leukocyte Esterase Negative (Negative) 11/24/24 19:30 Adenovirus (PCR) Not Detected (NotDetected) 11/24/24 09:00 B. pertussis DNA (PCR) Not Detected (NotDetected) 11/24/24 09:00 B.parapertussis DNA PCR Not Detected (NotDetected) 11/24/24 09:00 C. pneumoniae DNA (PCR) Not Detected (NotDetected) 11/24/24 09:00 Coronavirus OC43 (PCR) Not Detected (NotDetected) 11/24/24 09:00 Coronavirus HKU1 (PCR) Not Detected (NotDetected) 11/24/24 09:00 Coronavirus 229E (PCR) Not Detected (NotDetected) 11/24/24 09:00 SARS-CoV-2 (PCR) DETECTED (NotDetected) A 11/24/24 09:00 Coronavirus NL63 (PCR) Not Detected (NotDetected) 11/24/24 09:00 Human Metapneumovir PCR Not Detected (NotDetected) 11/24/24 09:00 Influenza Type A (PCR) Not Detected (NotDetected) 11/24/24 09:00 Influenza Type B (PCR) Not Detected (NotDetected) 11/24/24 09:00 M. pneumoniae (PCR) Not Detected (NotDetected) 11/24/24 09:00 Parainfluenza 1 (PCR) Not Detected (NotDetected) 11/24/24 09:00 Parainfluenza 2 (PCR) Not Detected (NotDetected) 11/24/24 09:00 Parainfluenza 3 (PCR) Not Detected (NotDetected) 11/24/24 09:00 Parainfluenza 4 (PCR) Not Detected (NotDetected) 11/24/24 09:00 RSV (PCR) Not Detected (NotDetected) 11/24/24 09:00 Entero/Rhino (PCR) Not Detected (NotDetected) 11/24/24 09:[address] 11/24/24 12:37 EXAM: CT Head Without Intravenous Contrast INDICATION: Evaluate for stroke. TECHNIQUE: Axial computed tomography images of the head/brain without intravenous contrast. Sagittal and/or coronal reformats are provided. Sagittal and coronal reformatted images were created and reviewed. This CT exam was performed using one or more of the following dose reduction techniques: automated exposure control, adjustment of the mA and/or kV according to patient size, and/or use of iterative reconstruction technique. COMPARISON: 04/25/2023 FINDINGS: Limitations: None. Brain and extra-axial spaces: There is age appropriate cortical atrophy and chronic ischemic periventricular white matter hypodensity. No acute infarct, hemorrhage or mass noted. Bones/joints: No acute changes. Soft tissues: No significant abnormality noted. Vasculature: No acute abnormality noted. Sinuses: Small air-fluid level and thickening left maxillary and ethmoid sinuses. Mastoid air cells: No mastoid effusion. Orbits: No significant abnormality noted. IMPRESSION: 1. Cerebral atrophy. No acute changes. 2. Mild acute on chronic left maxillary and ethmoid sinusitis. ACT 112: Negative or not required by law. Electronically signed by Candice Olivo 11-24-2024 2:10 PM Chest X-Ray 11/25/24 08:21 XR chest 1V portable HISTORY: 79 years-old Male COVID acute shortness of breath COMPARISON: None TECHNIQUE: AP view of the chest FINDINGS: Cardiac silhouette is enlarged. Pulmonary vascular congestion. Minimal bibasilar atelectasis. Atherosclerosis of the aorta. No pneumothorax, pleural effusion or pulmonary edema. Bones appear intact. IMPRESSION: Cardiomegaly without acute process. ACT 112: Negative or not required by law. The above report was generated using voice recognition software. It may contain grammatical, syntax or spelling errors. Electronically signed by: Lexx Mack M.D. 11/25/2024 9:27 AM Brain MRI 11/26/24 00:37 EXAM: MR brain wo/w con CLINICAL HISTORY: Altered mental status, Afib TECHNIQUE: Multisequential and multiplanar images of the brain were submitted for review without and with contrast. COMPARISON: CT, 11/24/2024 14:02:00 PANAMA HAT BLOCKER FINDINGS: Generalized parenchymal atrophy is appreciated. No focal parenchymal lesions are seen. No pathological enhancement is noted on the postcontrast sequences. No intracranial hemorrhage, mass effect, midline shift, extra-axial collection, or hydrocephalus is identified. Ventricles, sulci, and basal cisterns are symmetric and normal in size and configuration. Diffusion-weighted sequences show no evidence of acute ischemic infarction. Midline structures including the pituitary gland, corpus callosum, pineal region, and brainstem are unremarkable. The craniovertebral junction is within normal limits. No calvarial abnormalities are identified. The paranasal sinuses and mastoid air cells are clear. Orbital structures are unremarkable. Appropriate flow voids are present in the visualized intracranial vessels. Left maxillary and bilateral ethmoidal sinusitis. Left side deviated nasal septum. IMPRESSION: 1. No acute ischemia, space occupying mass, or other acute intracranial pathology is demonstrated. 2. Diffuse cerebral atrophy. 3. Left maxillary and bilateral ethmoidal sinusitis. Left side deviated nasal septum. 4. No interval change. Electronically signed by Soto Negro 11-26-2024 02:24 AM Ordered Studies 11/24/24 12:37 CT head/brain wo con Urgent 11/26/24 00:37 MR brain wo/w con Routine Hospital Course (1) AMS (altered mental status): Plan Altered mental status Likely metabolic encephalopathy in setting of acute COVID infection --CT Head:Cerebral atrophy. No acute changes. Mild acute on chronic left maxillary and ethmoid sinusitis. --MRI Brain:No acute ischemia, space occupying mass, or other acute intracranial pathology is demonstrated. Diffuse cerebral atrophy. Mental status back to baseline Patient denies any focal weakness, numbness, tingling, dysarthria Resolved COVID-19 infection Hypoxia secondary to above --CXR showed no signs of pneumonia -- Procalcitonin normal -- BioFire positive for COVID-19 -- CRP 8.8 -- Unable to continue remdesivir due to need for amiodarone use -- Continue IV dexamethasone--will discontinue on discharge -- Nebs as needed -- Weaned off of supplemental oxygen -Isolation precautions, antitussives PRN -- Saturating well on room air Paroxysmal atrial fibrillation with RVR Normal TSH --ECHO: Left ventricle is normal in size. Moderate concentric LVH. Left ventricle wall motion is normal. EF 65 to 70% mid left atrium is mildly dilated. Aortic valve sclerosis moderate, without significant valvular stenosis. Doppler findings do not suggest pulmonary hypertension --Monitor and replete electrolytes as needed --Continue metoprolol succinate at reduced dose 50 mg daily -- Continue amiodarone 200 mg daily --Appreciate cardiology input: Continue metoprolol, amiodarone, IV heparin -- Transition IV heparin to Eliquis --Needs follow-up with cardiology on discharge for possible EP study/pacemaker placement Hypomagnesemia Replete electrolytes as needed Monitor Chronic anemia Hemoglobin at baseline Monitor Obesity BMI 36.5 Other chronic conditions Hypertension Hyperlipidemia Prostate cancer--follows with [facility]. Hold immunotherapy in setting of acute infection as recommended by his primary oncologist. Hypothyroidism GERD Continue home medications as able DVT Px: Eliquis CODE STATUS Full code Disposition Home Total Time Total Time Spent Total Time Spent (In Minutes): 61 minutes Discharge Plan Discharge Items Patient Disposition: Home - Self-Care Reason For Visit: AMS Discharge Diagnosis: Acute metabolic encephalopathy COVID-19 infection Hypoxia Atrial fibrillation with rapid ventricular response Activity: Per Instructions section Exercise/Sports: Wait until after follow-up appointment Non-emergency contact: Primary Care Provider and Gym Supervisor Call non-emergency contact if: you have any medication questions, your symptoms worsen, your pain is concerning for you and you have a fever Follow-up/Referrals: Yany Coreas MD [Primary Care Provider] - (Date & Time 12/03/2024 11:00 AM Provider: Amadeo Arroyo, [facility] ) Leann Jones PA-C [Physician Industrial Roofer Helper] - (The office will call you with an appointment.) Diet: Heart Healthy Addtl Attending Provider Instructions: Follow-up with your primary care physician and or scrub tech as scheduled Seek immediate medical attention if your symptoms reoccur or worsen Please take all medications as instructed on discharge list below. Please call if you have any questions or problems. You can reach a [facility] hospitalist on duty at [facility] 24 hours a day by calling [phone] Pending Studies at Discharge: Yes Studies:: Blood cultures Stand-Alone Forms: [facility], Smoking Cessation Medications and DC Order Prescriptions: New amiodarone 200 mg Tablet 200 mg PO QAM Qty: 30 1RF metoprolol succinate 50 mg Tablet Extended Release 24 Hr 50 mg PO QAM Qty: 30 1RF Eliquis 5 mg Tablet 5 mg PO BID Qty: 60 1RF Continued aspirin 81 mg tablet,delayed release (DR/EC) 81 mg PO DAILY atorvastatin 20 mg tablet 20 mg PO HS amlodipine 2.5 mg tablet 2.5 mg PO QPM levothyroxine 25 mcg tablet 25 mcg PO DAILYBB lansoprazole 30 mg capsule,delayed release(DR/EC) 30 mg PO DAILYBB Xtandi 40 mg tablet 0 mg PO HS Rx Instructions: Per spouse the pt is taking this 40mg at bedtime. However original directions states 160mg daily Orgovyx 120 mg tablet 120 mg PO DAILY Discontinued metoprolol succinate 50 mg tablet extended release 24 hr 75 mg PO QAM Discharge Orders: Discharge Order (Routine); Ordered 11/27/24 Ordered By: Theo Hector Admission Data Admit Date/Time: 11/24/24 12:35 Attending Provider: Theo Hector Admit Provider: Parag Morfin Primary Care Provider: Yany Coreas Other Providers: Parag Morfin; Shaq Laughlin
[2024-11-27] MEDS: AMIODARONE 200 MG TAB PO SCH (13:39)
[2024-11-27 13:45] VITALS: BP 150/75; PULSE 52
--- NOTE | 2024-11-28 05:24 | Electrocardiogram Report ---
Test Reason : Blood Pressure : */* mmHG Vent. Rate : 59 BPM Atrial Rate : 59 BPM P-R Int : 170 ms QRS Dur : 86 ms QT Int : 472 ms P-R-T Axes : 28 9 -9 degrees QTcB Int : 467 ms Sinus bradycardia with Premature atrial complexes Nonspecific T wave abnormality Abnormal ECG When compared with ECG of 24-Nov-2024 19:54, Sinus rhythm has replaced Atrial fibrillation Vent. rate has decreased by 57 bpm Confirmed by Jose Estrada ([id number]) on 11/28/2024 5:24:49 AM Referred By: REFERRED SELF Confirmed By: Jose Estrada
--- NOTE | 2024-11-28 05:25 | Electrocardiogram Report ---
Test Reason : Blood Pressure : */* mmHG Vent. Rate : 53 BPM Atrial Rate : 53 BPM P-R Int : 176 ms QRS Dur : 92 ms QT Int : 486 ms P-R-T Axes : 69 27 -4 degrees QTcB Int : 456 ms Sinus bradycardia Inferior infarct , age undetermined Abnormal ECG When compared with ECG of 26-Nov-2024 06:48, Premature atrial complexes are no longer Present Nonspecific T wave abnormality no longer evident in Anterior leads Confirmed by Jose Estrada ([id number]) on 11/28/2024 5:25:12 AM Referred By: REFERRED SELF Confirmed By: Jose Estrada
[2024-11-28] MEDS ORDERED: METOPROLOL SUCC 50MG EXT REL TAB PO SCH (09:00)
== END 2024-11-27 14:14 | disposition home or self-care (01) | DRG 177 ==
LOC: ED 08:15 → 2S 12:35 → SUATTDRO 12:35 → 2S 13:20